=== PATIENT | female | born 1965 | race Caucasian/White ===

== ENCOUNTER → 2021-06-30 12:37 | Outpatient (CLI) | payer OTHER, SELFPAY ==
--- NOTE | ~2021-06-30 | MM_ITS ---
EXAMINATION: MM screening trish BI w kyle HISTORY: Screening TECHNIQUE: Craniocaudal and mediolateral oblique 3-D tomosynthesis images were obtained and synthetic 2-D images were generated. CAD analysis was submitted and interpreted. COMPARISON: Comparison to multiple prior studies sequentially, with oldest reviewed study dated 05/2013. BREAST PARENCHYMAL COMPOSITION: The breasts are heterogenously dense, which may obscure small masses FINDINGS: There is no evidence of suspicious mass, calcification, or architectural distortion to sugg est malignancy in either breast. There has been no suspicious interval change. IMPRESSION: 1. No mammographic evidence of malignancy. 2. Recommend routine screening mammography in one year. BI-RADS Category 1: Negative Reviewed, dictated and finalized at location A. NE REPAIR SUPERVISOR
== END ==
PROVIDERS: PCP Internal Medicine; Visit Provider Internal Medicine
DX: Z12.31 Encounter for screening mammogram for malignant neoplasm of breast (principal)
CPT/HCPCS: 77063; 77067

== ENCOUNTER 2024-06-14 15:06 | Outpatient (CLI) | payer OTHER, SELFPAY ==
--- NOTE | ~2024-06-14 | XR_ITS ---
EXAMINATION: XR abdomen/kub 1V DATE: 06/14/2024 15:25 INDICATION: Calculus of kidney. TECHNIQUE: A supine view of the abdomen on 2 radiographs was obtained. COMPARISON: Abdomen radiographs 12/14/2014 FINDINGS: There are no dilated loops of bowel. There is a moderate volume of stool in the colon. Ther e is a cluster of approximately 5 stones in left kidney measuring up to 3 mm. Surgical clips in the r ight upper quadrant are likely from cholecystectomy. There are phleboliths in the pelvis. There is a total right hip arthroplasty. IMPRESSION: 1. Left kidney stones. Reviewed, dictated and finalized at location A. RTISING ASSOCIATE IMPRESSION: 1. Left kidney stones.
--- OUTSIDE RECORDS SUMMARY | 2024-06-14 15:16 | XMS_ITS | Encounter Summary ---
Author Organization [facility] [place] Address [facility] [place] [address] Care Team Providers Care Community Development Officer Name Role Phone Ria Parr PA-C Primary Care Provider [phone]- [phone] Norma Orozco MD Primary Care Provider +1- [phone] Encounter Details Date Type Department Care Team (Late st Contact Info) Description 11/29/2019 Hospital Follow-up Call [facility] [place] [address] Shy Linton, RN Social History Tobacco Use Types Packs/Day Years Used Date Smoking Tobacco: Never Smokeless Tobacco: Never Alcohol Use Standard Drinks/Week Comments Yes 0 (1 standard drink = 0.6 oz pur e alcohol) 10 ralph/month PHQ-2 Answer Date Recorded PHQ-2 Score 0 04/02/2019 Comments No Sex and Gender Information Value Date Recorded Sex Assigned at Not on file Legal Sex Female 7:02 PM CDT Gender Identity Not on file Sexual Orientation Not on file COVID-19 Exposure Response Date Recorded In the last month, have you been in contact with someone who was confirmed or suspected to have Coronavirus / COVID-19? No / Unsure 11/25/2019 10:24 PM CDT documented as of this encounter Functional Status * RETIRED Are you deaf or do you have serious difficulty hearing Answer Date of Assessment Author Status No 11/26/2019 2:38 AM CDT Activ e * RETIRED Are you blind or do you have serious difficulty seeing, even when wearing glasses? Answer Date of Assessment Author Status No 11/26/2019 2:38 AM CDT Activ e * Do you have serious difficulty walking or climbing stairs? Answer Date of Assessment Author Status No 11/26/2019 2:38 AM MIKET Chante Jodran RN Active * Do you have difficulty dressing or bathing? Answer Date of Assessment Author Status No 11/26/2019 2:38 AM Chante Graham RN Active * Because of a physical, mental, or emotional condition, do you have difficulty doing errands alone such as visiting a doctor's office or shopping? Answer Date of Assessment Author Status No 11/26/2019 2:38 AM Chante Graham RN Active documented as of this encounter Mental Status * Because of a physical, mental, or emotional condition, do you have serious difficulty concentrating, remembering, or making decisions? Answer Entry Date Author Status No 11/26/2019 2:38 AM Chante Graham RN Active documented in this encounter Plan of Treatment Not on file documented as of this encounter Visit Diagnoses Not on filedocumented in this encounter Additional Health Concerns Infection Onset Date Last Indicated Resolved Time COVID-19 Rule Out 03/08/2020 03/08/2020 03/11/2020 7:01 PM SENIOR LANDSCAPE ARCHITECT COVID-19 Confirmed 03/08/2020 03/08/2020 12:36 AM SENIOR LANDSCAPE ARCHITECT COVID-19 Rule Out 11/07/2020 11/07/2020 11/09/2020 7:26 PM CDT Assessment Noted Time PHQ-9 Depression Total Score: 2 01/17/20 19 1:54 PM CDT documented as of this encounter Care Teams Community Development Officer Relationship Specialty Start Date End Date Ria Parr PA-C [address] [address] PCP - General PHYSICIAN STUDENT SUPPORT COUNSELOR 10/17/18 04/23/24 Norma Orozco MD [address] [place] [address] PCP - General INTERNAL MEDICINE 04/24/24 documented as of this encounter
--- OUTSIDE RECORDS SUMMARY | 2024-06-14 15:17 | XMS_ITS | Encounter Summary ---
Author Organization [facility] Address [facility] [place] [address] Care Team Providers Care Postal Service Sectional Center Manager Name Role Phone Ria Parr PA-C Primary Care Provider +1- [phone] Norma Orozco MD Primary Care Provider +1- [phone] Encounter Details Date Type Department Care Team (Late st Contact Info) Description 01/19/2018 Abstract [facility] Ria Parr PA-C [address] [address] Social History Tobacco Use Types Packs/Day Years Used Date Smoking Tobacco: Never Assessed Comments Unknown Sex and Gender Information Value Date Recorded Sex Assigned at Not on file Legal Sex Female 7:02 PM CDT Gender Identity Not on file Sexual Orientation Not on file documented as of this encounter Miscellaneous Notes * Letter - Ria Parr PA-C - 01/19/2018 12:00 AM CDT Jan 19, 2018 Julieth Abrams [address] [place] [address] Dear Julieth Abrams, Thank you for choosing [facility] for your health care needs. We appreciate the opportunity to help you maintain your well being. You recently had your mammogram done. Your results came back normal. Repeat mammogram in 1 year. Please remember to follow up as discussed at your last appointment. If you have any questions please feel free to call the office at [phone], Option #3 or Option #1 to make an appointment to discuss these results. Respectfully Yours, Electronically Signed by: Ria GARCIA Cc: Patients Medical Record L DESIGNER documented in this encounter Plan of Treatment Not on file documented as of this encounter Visit Diagnoses Not on filedocumented in this encounter Additional Health Concerns Infection Onset Date Last Indicated Resolved Time COVID-19 Rule Out 11/27/2019 11/27/2019 11/27/2019 12:32 PM CDT COVID-19 Rule Out 03/08/2020 03/08/2020 03/11/2020 7:01 PM EMAIL DESIGNER COVID-19 Confirmed 03/08/2020 03/08/2020 12:36 AM EMAIL DESIGNER COVID-19 Rule Out 11/07/2020 11/07/2020 11/09/2020 7:26 PM CDT documented as of this encounter Care Teams Postal Service Sectional Center Manager Relationship Specialty Start Date End Date Ria Parr PA-C [address] [address] PCP - General PHYSICIAN MICROFICHE CAMERA OPERATOR 10/17/18 04/23/24 Norma Orozco MD [address] [place] [address] PCP - General INTERNAL MEDICINE 04/24/24 documented as of this encounter
--- OUTSIDE RECORDS SUMMARY | 2024-06-14 15:17 | XMS_ITS | Clinical Summary ---
Author Organization [facility] Address [facility] [place] [address] Care Team Providers Care Metal Precision Machine Assembler Name Role Phone Norma Orozco MD Primary Care Provider +1- [phone] Allergies No known active allergies Medications azithromycin (ZITHROMAX) 250 MG tablet Take 2 tablets by mouth on day one then 1 daily for four days. 6 tablet 11/07/2020 Active naproxen (NAPROSYN) 500 MG tablet Take 1 tablet (500 mg total) by mouth 2 (two) times daily with meals. 12 tablet 04/24/2024 Active Active Problems Problem Noted Date Diagnosed Date Acute blood loss anemia 12/11/2019 Closed fracture of temporal bone ([facility]/ C) 12/11/2019 Fracture of phalanx of toe of right foot 020 Laceration of bladder 12/11/2019 SAH (subarachnoid hemorrhage) ([facility]) 12/11/2019 SDH (subdural hematoma) ([facility]) 2019 Scalp laceration 12/11/2019 Trauma 12/10/2019 Cholecystitis 11/26/2019 Pulmonary nodule 11/26/2019 Overview (11/26/2019): 5.3 cm nodule right lung base Irritable bowel syndrome (IBS) 08/16/2016 Nephrolithiasis 08/16/2016 Meniere's disease 08/16/2016 Female climacteric state 08/16/2016 Herpes labialis 08/16/2016 Thyroid cyst 07/25/2016 Overview (01/16/2019): small cyst seen on US 08/10 has FH of MEN2 Family history of type 2 MEN Encounters Date Type Department Care Team Description 04/24/2024 12:37 PM TEA BLENDER - 04/24/2024 3:26 PM TEA BLENDER Emergency [facility] Emergency Room [address] [place] [address] Frantz Bond MD Flank Pain Discharge Disposition: Home or Self Care (Routine Discharge) 04/24/2024 Travel from Last 3 Months Immunizations Name Administration Dates Next Due Fluzone 6 Months+ Quad (0.5 mL Prefilled Syringe ) 01/16/2019 Influenza Adult (Generic) 02/18/2018 Tdap (Boostrix) 12/09/2019 Tdap (Generic) 08/14/2016 Family History Medical History Relation Comments medullary thyroid cancer Cousin Coronary artery disease Father stent Hypertension Father Kidney Stones Father Stroke Father renal artery stenosis Father ? has sten t in kidney medullary thyroid cancer Other Osteoporosis Paternal Aunt medullary thyroid Cancer-MEN2A Paternal Aunt x 2 paternal aunt Heart Paternal Grandmother Osteoporosis Paternal Grandmother Relation Status Comments Cousin Father Other Alive Paternal Aunt Paternal Grandmother Social History Tobacco Use Types Packs/Day Years [...] on file Sexual Orientation Not on file Last Filed Vital Signs Vital Sign Reading Time Taken Comments Blood Pressure 124/74 04/24/2024 2:00 PM TEA BLENDER Pulse 71 04/24/2024 12:43 PM TEA BLENDER Temperature 36.1 C (96.9 F) 04/24/2024 12:45 PM TEA BLENDER Respiratory Rate 18 04/24/2024 12:43 PM TEA BLENDER Oxygen Saturation 100% 04/24/2024 2:00 PM TEA BLENDER Inhaled Oxygen Concentration - - Weight 64 kg (141 lb) 04/24/2024 12:43 PM TEA BLENDER Height 167.6 cm (5' 6 ) 04/24/2024 12:43 PM TEA BLENDER Body Mass Index 22.76 04/24/2024 12:43 PM TEA BLENDER Plan of Treatment Health Maintenance Due Date Last Done Comments Colorectal Cancer Screening Colonoscopy (10 Years) 1965 Hepatitis C 10/07/1985 Hepatitis B Vaccines (1 of 3 - 19+ 3-dose series) 10/07/1986 Zoster Vaccines (1 of 2) 10/07/2017 Annual Physical 01/17/2020 01/16/2019 Cervical Cancer Screening Pap with HPV Testing (Age 30 to 64) Every 5 Years 08/14/2021 08/14/2016 COVID-19 Vaccine ( season) 2023 07/10/2020 Influenza Adult (#1) 2024 01/24/2023, 01/24/2022, 03/25/2021, Additional history exists Mammogram Screening 06/21/2025 06/21/2023, 03/08/2023, 02/09/2023 Cervical Cancer Screening Pap Smear (Age 30 to 64) Every 3 Years 05/31/2028 05/31/2023 Cervical Cancer Screening with HPV 05/31/2028 DTaP, Tdap and Td Vaccines (3 - Td or Tdap) 12/08/2029 12/09/2019, 08/14/2016 Meningococcal B Vaccine Aged Out No l onger eligible based on patient's age to complete this topic Meningococcal Vaccine Aged Out No kateryna jeronimo eligible based on patient's age to complete this topic Pneumococcal Vaccine: Pediatrics (0 to 5 Years) and At-Risk Patients (6 to 64 Years) Aged Out No longer eligible based on patient's age to complete this topic RSV Immunizations Under 20 Months Aged Out No longer eligible based on patient's age to complete this topic Procedures Procedure Name Priority Date/Time Associated Diagnosis Comments CT ABD+PEL KIDNEY STONE STAT 04/24/2024 2:08 PM TEA BLENDER COMPREHENSIVE METABOLIC PANEL STAT 04/24/2024 1:49 PM TEA BLENDER CBC W/DIFF AUTOMATED STAT 04/24/2024 1:49 PM TEA BLENDER URINALYSIS, AUTO, COMPLETE STAT 04/24/2024 12:53 PM TEA BLENDER HPV MRNA E6/E7 Routine 08/14/2016 5:21 PM CDT from Last 3 Months or Most Recently Relevant to Health Maintenance Results * CT ABD+PEL KIDNEY STONE (04/24/2024 2:08 PM TEA BLENDER) Anatomical Region Laterality Modality Abdomen Computed Tomogra phy 04/24/2024 2:30 PM TEA BLENDER Impressions 04/24/2024 2:36 PM TEA BLENDER IMPRESSION: 1. There is a 8 mm nonobstructing left renal stone, unchanged. No ureteric or bladder stones are identified. There is no hydronephrosis. 2. No CT evidence of bowel obstruction. 3. Moderate fecal burden within the colon, which was seen with constipation. 4. Status post cholecystectomy. Referred By: Interpreted By: Nino Mcmanus MD, 04/24/2024 2:30 PM Narrative 04/24/2024 2:36 PM TEA BLENDER [facility] [address] [facility] [address] [place] [id number] PROCEDURE: CT ABD+PEL KIDNEY STONE HISTORY: Left flank pain. TECHNIQUE: Helical CT of the abdomen and pelvis was performed without intravenous contrast. A dose lowering technique was used for this procedure, which may include, but is not limited to, dose reduction technique, automated exposure control, the use of iterative reconstruction, and ALARA (As Low As Reasonably Achievable) / Image Gently techniques. COMPARISON: CT abdomen pelvis with contrast, 11/26/2019. FINDINGS CT ABDOMEN/PELVIS: Lower thorax: The lung bases are clear. The heart size is normal. Liver: The liver is normal in size. No intrahepatic mass is seen on this non- contrast exam. There are multiple hepatic cysts measuring up to 2.3 cm. Biliary tree: The patient is post cholecystectomy. There is no biliary ductal dilatation. Spleen: unremarkable Pancreas: The pancreas is normal in size. There are no pancreatic calcifications. The pancreatic duct is not dilated. Adrenal glands: The adrenal glands are normal in size and shape. Kidneys: There is no hydronephrosis. There is a stable nonobstructing left renal stone measuring up to 8 mm. No ureteric stones identified. There is no hydronephrosis. Lymph nodes: Abdomen: There is no abdominal adenopathy. Pelvis: There is no pelvic adenopathy. Vasculature: There is no abdominal aortic aneurysm. Atherosclerotic calcification is seen. Peritoneum/mesentery/omentum: There is no free fluid or free air. GI tract: There is no bowel obstruction. There is no abnormal bowel wall thickening to suggest acute inflammation. Moderate fecal burden within the colon. Pelvic urogenital structures:The bladder is grossly unremarkable. The uterus is present. There is no adnexal mass. Body wall: There are degenerative changes in the spine. Limitations: Evaluation of the solid parenchymal organs and vasculature is limited due to lack of intravenous contrast. Morales: (S/I) = series number / image number Procedure Note Nino Mcmanus MD - 04/24/2024 [facility] [address] [facility] [place] [address] PROCEDURE: CT ABD+PEL KIDNEY STONE HISTORY: Left flank pain. TECHNIQUE: Helical CT of the abdomen and pelvis was performed withoutintravenous contrast. A dose lowering technique was used for this procedure, which may include,but is not limited to, dose reduction technique, automated exposurecontrol, the use of iterative reconstruction, and ALARA (As Low AsReasonably Achievable) / Image Gently techniques. COMPARISON: CT abdomen pelvis with contrast, 11/26/2019. FINDINGS CT ABDOMEN/PELVIS: Lower thorax: The lung bases are clear. The heart size is normal. Liver: The liver is normal in size. No intrahepatic mass is seen on thisnon- contrast exam. There are multiple hepatic cysts measuring up to 2.3cm. Biliary tree: The patient is post cholecystectomy. There is no biliaryductal dilatation. Spleen: unremarkable Pancreas: The pancreas is normal in size. There are no pancreaticcalcifications. The pancreatic duct is not dilated. Adrenal glands: The adrenal glands are normal in size and shape. Kidneys: There is no hydronephrosis. There is a stable nonobstructingleft renal stone measuring up to 8 mm. No ureteric stones identified.There is no hydronephrosis. Lymph nodes: Abdomen: There is no abdominal adenopathy. Pelvis: There is no pelvic adenopathy. Vasculature: There is no abdominal aortic aneurysm. Atheroscleroticcalcification is seen. Peritoneum/mesentery/omentum: There is no free fluid or free air. GI tract: There is no bowel obstruction. There is no abnormal bowel wallthickening to suggest acute inflammation. Moderate fecal burden withinthe colon. Pelvic urogenital structures:The bladder is grossly unremarkable. Theuterus is present. There is no adnexal mass. Body wall: There are degenerative changes in the spine. Limitations: Evaluation of the solid parenchymal organs and vasculature islimited due to lack of intravenous contrast. Morales: (S/I) = series number / image number IMPRESSION: 1. There is a 8 mm nonobstructing left renal stone, unchanged. Noureteric or bladder stones are identified. There is no hydronephrosis. 2. No CT evidence of bowel obstruction. 3. Moderate fecal burden within the colon, which was seen withconstipation. 4. Status post cholecystectomy. Referred By: Interpreted By: Nino Mcmanus MD, 04/24/2024 2:30 PM Frantz Bond MD CT Final Result * (ABNORMAL) COMPREHENSIVE METABOLIC PANEL (04/24/2024 1:49 PM TEA BLENDER) GLUCOSE 93 70 - 99 MG/DL 04/24/2024 2:13 PM [facility] BUN 18 7 - 18 MG/DL 04/24/2024 2:13 PM [facility] CREATININE S/P/B 0.91 0.55 - 1.02 MG/DL 04/24/2024 2:13 PM [facility] SODIUM S/P/B 141 136 - 145 MMOL/L 04/24/2024 2:13 PM [facility] POTASSIUM S/P/B 4.0 3.5 - 5.1 MMOL/L 04/24/2024 2:13 PM [facility] CHLORIDE S/P/B 104 100 - 108 MMOL/L 04/24/2024 2:13 PM [facility] CO2 28.0 21 - 32 MMOL/L 04/24/2024 2:13 PM [facility] CALCIUM S/P/B 9.8 8.5 - 10.1 MG/DL 04/24/2024 2:13 PM [facility] BILIRUBIN TOTAL S/P/B 1.3(H) 0.2 - 1.2 MG/DL 04/24/2024 2:13 PM [facility] TOTAL PROTEIN S/P/B 7.3 6.4 - 8.2 G/DL 04/24/2024 2:13 PM [facility] ALBUMIN S/P/B 4.4 3.4 - 5.0 G/DL 04/24/2024 2:13 PM [facility] AST 19 15 - 37 U/L 04/24/2024 2:13 PM [facility] ALT 27 14 - 55 U/L 04/24/2024 2:13 PM [facility] ALKALINE PHOSPHATASE S/P/B 41(L) 50 - 136 U/L 04/24/2024 2:13 PM [facility] ANION GAP 9.0 5 - 15 MMOL/L 04/24/2024 2:13 PM [facility] BUN CREATININE RATIO 19.8 6 - 26 04/24/2024 2:13 PM [facility] A/G RATIO 1.5 1.0 - 2.0 RATIO 04/24/2024 2:13 PM [facility] GFR ESTIMATE 74(L) >90 ML/MIN/1.7 3 M2 04/24/2024 2:13 PM [facility] Comment: NOTE: eGFR is not calculated for patients <18 years of age. This is an estimated GFR calculation using the new CKD EPI creatinine equation without race and so does not require a correction factor for race. This estimated GFR should not be used for calculating drug doses. 04/24/2024 1:49 PM TEA BLENDER Frantz Bond MD LABORATORY Final Result [facility] [address] [place] [address], * (ABNORMAL) CBC W/DIFF AUTOMATED (04/24/2024 1:49 PM TEA BLENDER) WBC 7.14 4.4 - 11.0 x10'3/uL 04/24/2024 2:01 PM [facility] RBC 4.27(L) 4.50 - 5.10 x10'6/uL 04/24/2024 2:01 PM [facility] HGB 13.2 12.3 - 15.3 G/DL 04/24/2024 2:01 PM [facility] HCT 40.4 35.9 - 44.6 % 04/24/2024 2:01 PM [facility] MCV 94.6 80.0 - 96.0 FL 04/24/2024 2:01 PM [facility] MCH 30.9 25.3 - 30.9 PG 04/24/2024 2:01 PM [facility] MCHC 32.7 31.0 - 34.1 G/DL 04/24/2024 2:01 PM [facility] RDW 13.7 12.4 - 15.1 % 04/24/2024 2:01 PM [facility] PLT 297 151 - 353 x10'3/uL 04/24/2024 2:01 PM [facility] MPV 10.3 9.6 - 12.0 FL 04/24/2024 2:01 PM [facility] RBC MORPHOLOGY NORMAL 04/24/2024 2:01 PM [facility] PLT MORPH. NORMAL 04/24/2024 2:01 PM [facility] WBC MORPHOLOGY NORMAL 04/24/2024 2:01 PM [facility] LYMPHOCYTES % 29.3 15.8 - 45.0 % 04/24/2024 2:01 PM [facility] NEUTROPHILS % 63.3 42.1 - 71.9 % 04/24/2024 2:01 PM [facility] MONOCYTES % 6.3 5.7 - 12.5 % 04/24/2024 2:01 PM [facility] EOSINOPHILS 0.4 0.0 - 5.6 % 04/24/2024 2:01 PM [facility] BASOPHILS 0.6 0.0 - 1.3 % 04/24/2024 2:01 PM [facility] ABS. NEUTROPHILS 4.52 1.40 - 6.00 x10'3/uL 04/24/2024 2:01 PM [facility] IMMATURE GRANS % 0.1 0.0 - 0.5 % 04/24/2024 2:01 PM [facility] ABS. LYMPHOCYTES 2.09 0.80 - 4.70 x10'3/uL 04/24/2024 2:01 PM [facility] 04/24/2024 1:49 PM TEA BLENDER us Frantz Bond MD LABORATORY Final Result [facility] [address] [place] [address], [place] [phone] * (ABNORMAL) Urinalysis, Auto, Complete (04/24/2024 12:53 PM TEA BLENDER) COLOR (U) YELLOW 04/24/2024 2:06 PM [facility] TRANSPARENCY HAZY 04/24/2024 2:06 PM [facility] SPECIFIC GRAVITY (U) >1.030(H) 1.000 - 1.030 04/24/2024 2:06 PM [facility] U PH 6.0 5.0 - 9.0 04/24/2024 2:06 PM [facility] LEUKOCYTES (U) TRACE(A) NEGATIVE 04/24/2024 2:06 PM [facility] NITRITES NEGATIVE NEGATIVE 04/24/2024 2:06 PM [facility] PROTEIN RANDOM (U) NEGATIVE NEGATIVE 04/24/2024 2:06 PM [facility] GLUCOSE (U) NEGATIVE NEGATIVE 04/24/2024 2:06 PM [facility] KETONES MG/DL (U) 1+(A) NEGATIVE 04/24/2024 2:06 PM [facility] BILIRUBIN (U) NEGATIVE NEGATIVE 04/24/2024 2:06 PM [facility] BLOOD (U) TRACE(A) NEGATIVE 04/24/2024 2:06 PM [facility] WBC/HPF 5-10 0 - 5 /HPF 04/24/2024 2:06 PM [facility] RBC/HPF 0-5 0 - 5 /HPF 04/24/2024 2:06 PM [facility] EPI/HPF MODERATE /HPF 04/24/2024 2:06 PM [facility] URINE SPECIMEN OBTAINED BY CLEAN CATCH PROCEDURE / Unknown 04/24/2024 12:53 PM TEA BLENDER Frantz Bond MD URINE ORDERABLES Final Result [facility] [address] [place] [address], [place] [phone] * HPV MRNA E6/E7 (08/14/2016 5:21 PM CDT) HPV MRNA E6/E7 SEE NOTE [facility] OUP TO EPIC CONVERSION Comment: Not Detected Reference range: NOT DETECTED This test was performed using the APTIMA(R) HPV Assay ([employer] This assay detects E6/E7 viral messenger RNA (mRNA) from 14 high-risk HPV types (16,18,31,33,35,39,45,51, 52,56,58,59,66,68). For additional information please refer to: http://education.OrderWithMe/faq/XXC929k5 (This link is being provided for informational/ educational purposes only.) Test Performed by [facility], [address] [place] [id number] Keith Rico M.D., Ph.D., Director of Laboratories , [facility] [id number] 08/14/2016 5:21 PM CDT 08/14/2016 5:21 PM CDT Narrative [facility] TO EPIC CONVERSION - 08/14/2016 5:21 PM CDT [AUTO]: This test was reviewed. Ria Parr PA-C PATHOLOGY/CYTOLOGY ORDERAB LES Final Result [facility] TO EPIC CONVERSION from Last 3 Months or Most Recently Relevant to Health Maintenance Insurance [facility] Advance Directives * Full Code (Latest Code Status on File) Date Activated Date Inactivated Comments 11/27/2019 3:45 PM 11/28/2019 1:24 PM * Full Code Date Activated Date Inactivated Comments 11/26/2019 2:17 AM 11/27/2019 3:45 PM Care Teams Metal Precision Machine Assembler Relationship Specialty Start Date End Date Norma Orozco MD [address] [place] [id number] PCP - General INTERNAL MEDICINE 04/24/24
--- OUTSIDE RECORDS SUMMARY | 2024-06-14 15:17 | XMS_ITS | Encounter Summary ---
Author Organization [facility] Address [facility] [place] [address] Care Team Providers Care Edge Grinder Machine Name Role Phone Ria Parr PA-C Primary Care Provider [phone]- [phone] Norma Orozco MD Primary Care Provider [phone]- [phone] Encounter Details Date Type Department Care Team (Late st Contact Info) Description 05/29/2015 Abstract [facility] CONVERSION [address] [place] [address] , Generic Conversion, Social History Tobacco Use Types Packs/Day Years Used Date Smoking Tobacco: Never Assessed Comments Unknown Sex and Gender Information Value Date Recorded Sex Assigned at Not on file Legal Sex Female 7:02 PM CDT Gender Identity Not on file Sexual Orientation Not on file documented as of this encounter Plan of Treatment Not on file documented as of this encounter Visit Diagnoses Not on filedocumented in this encounter Additional Health Concerns Infection Onset Date Last Indicated Resolved Time COVID-19 Rule Out 11/27/2019 11/27/2019 11/27/2019 12:32 PM CDT COVID-19 Rule Out 03/08/2020 03/08/2020 03/11/2020 7:01 PM [employer]HER COVID-19 Confirmed 03/08/2020 03/08/2020 12:36 AM C[employer]HER COVID-19 Rule Out 11/07/2020 11/07/2020 11/09/2020 7:26 PM CDT documented as of this encounter Care Teams Edge Grinder Machine Relationship Specialty Start Date End Date Ria Parr PA-C [address] [facility] [address] [place] [address] PCP - General PHYSICIAN PLASTIC SURGERY TECHNICIAN 10/17/18 04/23/24 Norma Orozco MD [address] [place] [id number] PCP - General INTERNAL MEDICINE 04/24/24 documented as of this encounter
--- OUTSIDE RECORDS SUMMARY | 2024-06-14 15:17 | XMS_ITS | Patient Health Summary ---
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 Colorless 12/10/2019 7:27 AM [facility] Clarity UA Slt Cloudy Clear, Slt Cloudy 12/10/2019 7:27 AM [facility] Specific [place] UA 1.017 1.005 - 1.030 12/10/2019 7:27 AM [facility] pH UA 7.0 5.0 - 8.0 pH 12/10/2019 7:27 AM [facility] Protein UA Negative Negative mg/dL 12/10/2019 7:27 AM [facility] Glucose UA 1+(A) Negative mg/dL 12/10/2019 7:27 AM [facility] Ketone UA Negative Negative mg/dL 12/10/2019 7:27 AM [facility] Bilirubin UA Negative Negative mg/dL 12/10/2019 7:27 AM [facility] Blood UA 3+(A) Negative 12/10/2019 7:27 AM [facility] Nitrite UA Negative Negative 12/10/2019 7:27 AM [facility] Leukocyte Esterase 1+(A) Negative 12/10/2019 7:27 AM [facility] Urobilinogen UA Negative Negative mg/dL 12/10/2019 7:27 AM [facility] RBC UA >100(A) None Seen, 0-2, 3-5 /HPF 12/10/2019 7:27 AM [facility] WBC UA 11-20(A) None Seen, 0-5 /HPF 12/10/2019 7:27 AM [facility] Bacteria UA Trace None, Trace /HPF 12/10/2019 7:27 AM [facility] Squamous Epithelial Cells UA None Seen None Seen, 0-2 /HPF 12/10/2019 7:27 AM [facility] Mucus UA 1+ None, 1+ /LPF 12/10/2019 7:27 AM [facility] Transitional Epithelial Cells UA 0-2 None Seen, 0-2 /HPF 12/10/2019 7:27 AM [facility] Urine URINE SPECIMEN OBTAINED BY SINGLE CATHETERIZATION OF URINARY BLADDER / Unknown Collection / Unknown 12/10/2019 6:55 AM CDT 12/10/2019 7:00 AM CDT Narrative [facility] - 12/10/2019 7:27 AM CDT Maribel Santa DO LAB - URINALYSI S ORDERABLES [address] [address], [facility] [phone] * (ABNORMAL) DRUG SCREEN TOX URINE PANEL (12/10/2019 6:55 AM CDT) Pathologist [facility] Amphetamines Screen Urine Negative Negative : < 1000 ng/mL 12/10/2019 7:19 AM [facility] Barbiturates Screen Urine Negative Negative : < 200 ng/mL 12/10/2019 7:19 AM [facility] Benzodiazepine Screen Urine Negative Negative : < 200 ng/mL 12/10/2019 7:19 AM [facility] Opiates Urine Negative Negative : < 300 ng/mL 12/10/2019 7:19 AM [facility] Cocaine Metabolites Urine Negative Negative : < 300 ng/mL 12/10/2019 7:19 AM [facility] Phencyclidine Screen Urine Negative Negative : < 25 ng/ml 12/10/2019 7:19 AM [facility] Cannabinoids Screen Urine Negative Negative : <50 ng/mL 12/10/2019 7:19 AM [facility] Methadone Screen Urine Negative Negative : < 300 ng/mL 12/10/2019 7:19 AM [facility] Fentanyl Screen Urine Positive(A) Negative : <1.0 ng/mL 12/10/2019 7:19 AM [facility] Comment:Positive urine fenta nyl screening results should be confirmed by another generally accepted non-immunological method such as gas chromatography or mass spectrometry. Urine URINE / Unknown Collection / Unknown 12/10/2019 6:55 AM CDT 12/10/2019 7:00 AM CD Narrative [facility] - 12/10/2019 7:19 AM CDT The Urine Toxicology Screening Panel does not screen for Propoxyphene, Meprobamate, Carisoprodol, Trazodone, [id number] medications and/or volatiles (Acetone, Isopropanol, Methanol or Ethylene Glycol). Ethanol, Salicylate, Acetaminophen, Tricyclic Antidepressants and several therapeutic drugs may be individually assayed in serum or plasma specimen. Toxicology testing by the [facility] is an aid to medical diagnosis and treatment of patients. No documented chain of custody was maintained. Results are intended to be used for clinical purposes only. Maribel Santa DO LAB - URINE RICHAR RICKIE ORDERABLES [address] [address], [facility] [phone] * ETT LINE PERFORMABLE (12/10/2019 3:39 AM CDT) Narrative Mark Balderrama MD - 12/10/2019 3:39 AM CDMark Amato MD 12/10/2019 3:40 AM Endotracheal Tube Placement: Patient Location: OR. Intubation Event Date/Time: 12/10/2019 3:17 AM Procedure: intubation (36032). Procedure Section: Sedation: IV sedation. Indications for Airway Management: airway protection Induction: rapid sequence Mask Ventilation: not attempted. Blade Type: Video Blade Size: 3 Laryngoscopy View: grade 1 (full cords) Intubation Adjuncts: stylet and cricoid pressure Tube: endotracheal tube Placement: oral Tube type: cuff - inflated Tube Size (MM): 7 Measured From: teeth Cuff Inflated With: air Number of Attempts: 1. Placement Verified By: direct visualization, bilateral breath sounds, chest auscultation and CO2 monitor CXR Findings: ETT in proper place. Tube secured with: adhesive tape. Difficult Airway? No. Procedure Start Time: 12/10/2019 3:17 AM. Staff Section Provider #1: Mark Balderrama MD, Performed the procedure. Tiffany Doherty MD GENERAL ANESTHESIA O RDERABLES * CT CHEST ABDOMEN PELVIS W CONT - Abdomen-pelvis trauma, blunt or penetrating (12/10/2019 2:06 AM CDT) Anatomical Region Laterality Modality Chest, Abdomen, Pelvis Computed Tomography 12/10/2019 2:29 AM CDT Impressions 12/10/2019 10:06 AM CDT IMPRESSION: 1. Discrete defect in the cranial margin of the urinary bladder, with urinary bladder wall thickening and surrounding haziness and fluid. There is also small moderate free intraperitoneal fluid. The findings are consistent with full thickness disruption of the urinary bladder. This is a discrepant finding from the preliminary reading of the CT, which is already known to the surgical team based on operative findings. 2. A focal nodule versus focal nodular-appearing parenchyma is present in each breast. Mammographic correlation advised. 3. Rotational anomaly of the left kidney, with renal hilum facing laterally. An 8 mm left renal stone is present. Dictated by New Garland MD (interventional radiology technologist). I, Dr. ECTOR STEVENSON have personally reviewed and interpreted this examination/study. This report was electronically signed by ECTOR STEVENSON on 12/10/2019 10:06 AM . Narrative 12/10/2019 10:06 AM CDT EXAMINATION: Computed tomography (CT) of the chest, abdomen, and pelvis with contrast HISTORY: Trauma, status postcholecystectomy 2 weeks ago TECHNIQUE: CT of the chest, abdomen, and pelvis was performed after the uneventful administration of 100 mL of Isovue 370 intravenous contrast according to standard protocol. FINDINGS: No prior study is available for comparison at the time of this dictation. Chest: There is a left-sided three-vessel aortic arch. The aorta and main pulmonary artery are normal in course and caliber. There is atelectasis in the dependent portions of the lungs. Otherwise no focal consolidation is seen. No pleural effusion or focal pleural thickening is identified. There is no evidence of pneumothorax. No suspicious pulmonary nodule is identified. The trachea is patent and midline. The heart size is normal. No pericardial effusion is present. No mediastinal, hilar, supraclavicular, or axillary lymphadenopathy is seen. The thyroid gland enhances homogenously. There is a 10 mm nodule versus nodular parenchyma in the superior medial right breast. There is a 15 mm nodule versus nodular parenchyma in the superolateral left breast. Abdomen/pelvis: There is a moderate amount of free fluid throughout the abdomen and pelvis. The free fluid measures simple fluid density and there is no evidence of layering hyperdensity or sentinel clot sign. Multiple cysts are present in the liver measuring up to 1.8 cm. The gallbladder is surgically absent. The intrahepatic and extrahepatic bile ducts are nondilated. The spleen enhances homogenously without focal lesion. The pancreas and adrenal glands are normal. Abnormal left kidney morphology which is rotated upon its axis with the renal pelvis pointed laterally towards the abdominal wall. There is no evidence of traumatic kidney injury. There is a nonobstructing calculus in the left kidney renal pelvis which measures 8 mm. The esophagus and stomach appear normal. The small bowel and colon are normal in caliber without evidence of wall thickening or obstruction. The appendix is not seen. No free air is identified within the abdomen. There is no abdominal lymphadenopathy. There is a small fat-containing periumbilical hernia. There is a 7 mm defect along the cranial margin of the urinary bladder. There is mild diffuse urinary bladder wall thickening along with surrounding haziness and fluid. The uterus appears normal. There is no pelvic lymphadenopathy. Bone windows demonstrate no suspicious lytic or blastic lesions. The visible osseous structures are intact. Procedure Note Ector Stevenson MD - 12/10/2019 EXAMINATION: Computed tomography (CT) of the chest, abdomen, and pelvis with contrast HISTORY: Trauma, status postcholecystectomy 2 weeks ago TECHNIQUE: CT of the chest, abdomen, and pelvis was performed after the uneventful administration of 100 mL of Isovue 370 intravenous contrast according to standard protocol. FINDINGS: No prior study is available for comparison at the time of this dictation. Chest: There is a left-sided three-vessel aortic arch. The aorta and main pulmonary artery are normal in course and caliber. There is atelectasis in the dependent portions of the lungs. Otherwiseno focal consolidation is seen. No pleural effusion or focal pleural thickening is identified. There is no evidence of pneumothorax. No suspicious pulmonary nodule is identified. The trachea is patent and midline. The heart size is normal. No pericardial effusion is present. No mediastinal, hilar, supraclavicular, or axillary lymphadenopathy isseen. The thyroid gland enhances homogenously. There is a 10 mm nodule versus nodular parenchyma in the superior medial right breast. There is a 15 mm nodule versus nodular parenchyma in the superolateral left breast. Abdomen/pelvis: There is a moderate amount of free fluid throughout the abdomen and pelvis. The free fluid measures simple fluid density and there is no evidence of layering hyperdensity or sentinel clot sign. Multiple cysts are present in the liver measuring up to 1.8 cm. The gallbladder is surgically absent. The intrahepatic and extrahepatic bile ducts are nondilated. The spleen enhances homogenously without focal lesion. The pancreas and adrenal glands are normal. Abnormal left kidney morphology which is rotated upon its axis with the renal pelvis pointed laterally towards the abdominal wall. There is no evidence of traumatic kidney injury. There is a nonobstructing calculusin the left kidney renal pelvis which measures 8 mm. The esophagus and stomach appear normal. The small bowel and colon are normal in caliber without evidence of wall thickening or obstruction.The appendix is not seen. No free air is identified within the abdomen.There is no abdominal lymphadenopathy. There is a small fat-containing periumbilical hernia. There is a 7 mm defect along the cranial margin of the urinary bladder. There is mild diffuse urinary bladder wall thickening along with surrounding haziness and fluid. The uterus appears normal. There is no pelvic lymphadenopathy. Bone windows demonstrate no suspicious lytic or blastic lesions. The visible osseous structures are intact. IMPRESSION: 1. Discrete defect in the cranial margin of the urinary bladder, with urinary bladder wall thickening and surrounding haziness and fluid.There is also small moderate free intraperitoneal fluid. The findings are consistent with full thickness disruption of the urinary bladder. Thisis a discrepant finding from the preliminary reading of the CT, which is already known to the surgical team based on operative findings. 2. A focal nodule versus focal nodular-appearing parenchyma is presentin each breast. Mammographic correlation advised. 3. Rotational anomaly of the left kidney, with renal hilum facing laterally. An 8 mm left renal stone is present. Dictated by [place] Garland MD (interventional radiology technologist). I, Dr. ECTOR STEVENSON have personally reviewed and interpreted this examination/study. This report was electronically signed by ECTOR STEVENSON on 12/10/2019 10:06 AM . Maribel Vicente Nelyyolandatheodore DO CT ORDERABLES * CT LUMBAR SPINE WO CONTRAST - T/L-spine trauma, Spine fracture (12/10/2019 2:06 AM CDT) Anatomical Region Laterality Modality Spine Computed Tomogra phy 12/10/2019 2:13 AM CDT Impressions 12/10/2019 3:37 PM CDT IMPRESSION: 1.Bifrontal hemorrhagic contusions and small volume subarachnoid blood products. 2.Right tentorial subdural hematoma. 3.Right temporal bone fracture appears to spare the otic capsule. Fluid is present in the right mastoid air cells and middle ear cavity. 4.Posterior scalp laceration with small subgaleal hematoma and gas. 5.No evidence of acute fracture in the cervical, thoracic, or lumbar spine. 6.Moderate central canal stenosis at C7 due to focal calcification of the posterior longitudinal ligament. Report dictated by Caden Cerna M.D. Preliminary results were discussed with Dr. Blair by Dr. Cerna on 12/10/2019 2:29 AM. This report was approved by Caden Cerna on 12/10/2019 3:37 PM . I, Dr. CHARMAINE RAZA have personally reviewed and interpreted this examination/study. This report was electronically signed by CHARMAINE RAZA on 12/10/2019 3:37 PM . Narrative 12/10/2019 3:[address] HEAD WO CONTRAST, CT LUMBAR SPINE WO CONTRAST, CT THORACIC SPINE WO CONTRAST, CT CERVICAL SPINE WO CONTRAST DATE: 12/10/2019 2:07 AM EXAMINATION: 1.Computed tomography (CT) of the head without contrast 2.CT of the cervical spine without contrast 3.CT of the thoracic spine without contrast 4.CT of the lumbar spine without contrast HISTORY: Trauma TECHNIQUE: CT of the head, and cervical spine was performed without contrast according to standard protocol. Reformatted axial, sagittal, and coronal images of the thoracic and lumbar spine were obtained by the technologist from a concurrently performed body CT and sent to the workstation for review. COMPARISON: No prior study is available for comparison at the time of this dictation. FINDINGS: Head: Bifrontal hemorrhagic contusions are present with the largest discrete hematoma measuring 8 x 7 x 7 mm (series 12, image 26). Small volume subarachnoid blood products are seen along the anteriormost frontal sulci. A 2.5 mm right tentorial subdural hematomas present. There is suggestion of small petechial hemorrhages in bilateral temporal lobes. Gas is present adjacent along the right transverse sinus region with associated fracture of the right temporal bone which extends from the right mandibular fossa through the squamous and superior mastoid portions to the lambdoid suture. The otic capsule appears intact. There is partial opacification of multiple right mastoid air cells and the middle ear cavity. Mild opacification of the left mastoid air cells near the mastoid tip. The ventricles are of normal size, shape, and morphology. The basal cisterns are patent. No significant midline shift is seen. The chnio-white matter differentiation is normal. The visualized portions of the orbits, orbital contents, and paranasal sinuses appear normal. A posterior scalp laceration with small subgaleal hematoma and gas is present posteriorly. Cervical spine: There is straightening of the normal cervical lordosis. Vertebral bodies are normal in height without evidence of acute fracture. Other than middle atlantoaxial joint osteoarthritis, the craniocervical junction appears normal. There is mild degenerative disc disease. There is moderate central canal stenosis at C7 due to thickened calcified posterior longitudinal ligament. There are varying degrees of mild facet osteoarthritis. There are varying degrees of mild uncovertebral joint osteoarthritis with the same degree of neural foraminal stenosis at these levels. No soft tissue abnormality is identified. Thoracic spine: The alignment is normal. Vertebral bodies are normal in height without evidence of acute fracture. Disc osteophyte complex/ossification of the PLL at the level of T11-T12. The remaining intervertebral discs appear normal. No central canal stenosis is seen. The facets appear normal. No neural foraminal stenosis is seen. There is subsegmental atelectasis in the dependent portions of the lung bases. Lumbar spine: The alignment is normal. Vertebral bodies are normal in height without evidence of acute fracture. Mild disc bulge at multiple levels. No significant central canal stenosis is seen. There are varying degrees of mild facet osteoarthritis. No significant neural foraminal stenosis is seen. 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 Procedure Note Charmaine Raza MD - 12/10/2019 CT HEAD WO CONTRAST, CT LUMBAR SPINE WO CONTRAST, CT THORACIC SPINE WO CONTRAST, CT CERVICAL SPINE WO CONTRAST DATE: 12/10/2019 2:07 AM EXAMINATION: 1.Computed tomography (CT) of the head without contrast 2.CT of the cervical spine without contrast 3.CT of the thoracic spine without contrast 4.CT of the lumbar spine without contrast HISTORY: Trauma TECHNIQUE: CT of the head, and cervical spine was performed without contrast according to standard protocol. Reformatted axial, sagittal,and coronal images of the thoracic and lumbar spine were obtained by the technologist from a concurrently performed body CT and sent to the workstation for review. COMPARISON: No prior study is available for comparison at the time ofthis dictation. FINDINGS: Head: Bifrontal hemorrhagic contusions are present with the largest discrete hematoma measuring 8 x 7 x 7 mm (series 12, image 26). Small volume subarachnoid blood products are seen along the anteriormost frontalsulci. A 2.5 mm right tentorial subdural hematomas present. There is suggestion of small petechial hemorrhages in bilateral temporal lobes. Gas ispresent adjacent along the right transverse sinus region with associatedfracture of the right temporal bone which extends from the right mandibular fossa through the squamous and superior mastoid portions to the lambdoidsuture. The otic capsule appears intact. There is partial opacification of multiple right mastoid air cells and the middle ear cavity. Mild opacification of the left mastoid air cells near the mastoid tip. The ventricles are of normal size, shape, and morphology. The basal cisterns are patent. No significant midline shift is seen. The chino-white matter differentiation is normal. The visualized portions of the orbits,orbital contents, and paranasal sinuses appear normal. A posterior scalp laceration with small subgaleal hematoma and gas is present posteriorly. Cervical spine: There is straightening of the normal cervical lordosis. Vertebral bodies are normal in height without evidence of acute fracture. Other thanmiddle atlantoaxial joint osteoarthritis, the craniocervical junction appears normal. There is mild degenerative disc disease. There is moderatecentral canal stenosis at C7 due to thickened calcified posterior longitudinal ligament. There are varying degrees of mild facet osteoarthritis. There are varying degrees of mild uncovertebral joint osteoarthritis with the same degree of neural foraminal stenosis at these levels. No soft tissue abnormality is identified. Thoracic spine: The alignment is normal. Vertebral bodies are normal in height without evidence of acute fracture. Disc osteophyte complex/ossification of the PLL at the level of T11-T12. The remaining intervertebral discs appear normal. No central canal stenosis is seen. The facets appear normal. No neural foraminal stenosis is seen. There is subsegmental atelectasis in the dependent portions of the lung bases. Lumbar spine: The alignment is normal. Vertebral bodies are normal in height without evidence of acute fracture. Mild disc bulge at multiple levels. No significant central canal stenosis is seen. There are varying degrees of mild facet osteoarthritis. No significant neural foraminal stenosis is seen. 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 IMPRESSION: 1.Bifrontal hemorrhagic contusions and small volume subarachnoid blood products. 2.Right tentorial subdural hematoma. 3.Right temporal bone fracture appears to spare the otic capsule. Fluidis present in the right mastoid air cells and middle ear cavity. 4.Posterior scalp laceration with small subgaleal hematoma and gas. 5.No evidence of acute fracture in the cervical, thoracic, or lumbarspine. 6.Moderate central canal stenosis at C7 due to focal calcification ofthe posterior longitudinal ligament. Report dictated by Caden Cerna M.D. Preliminary results were discussed with Dr. Blair by Dr. Cerna on 12/10/2019 2:29 AM. This report was approved by Caden Cerna on 12/10/2019 3:37 PM. I, Dr. CHARMAINE RAZA have personally reviewed and interpreted this examination/study. This report was electronically signed by CHARMAINE RAZA on12/10/2019 3:37 PM . Maribel Santa DO CT ORDERABLES * CT THORACIC SPINE WO CONTRAST - T/L-spine trauma, spine fracture (12/10/2019 2:06 AM CDT) Anatomical Region Laterality Modality Spine Computed Tomogra phy 12/10/2019 2:13 AM CDT Impressions 12/10/2019 3:37 PM CDT IMPRESSION: 1.Bifrontal hemorrhagic contusions and small volume subarachnoid blood products. 2.Right tentorial subdural hematoma. 3.Right temporal bone fracture appears to spare the otic capsule. Fluid is present in the right mastoid air cells and middle ear cavity. 4.Posterior scalp laceration with small subgaleal hematoma and gas. 5.No evidence of acute fracture in the cervical, thoracic, or lumbar spine. 6.Moderate central canal stenosis at C7 due to focal calcification of the posterior longitudinal ligament. Report dictated by Caden Cerna M.D. Preliminary results were discussed with Dr. Blair by Dr. Cerna on 12/10/2019 2:29 AM. This report was approved by Caden Cerna on 12/10/2019 3:37 PM . I, Dr. CHARMAINE RAZA have personally reviewed and interpreted this examination/study. This report was electronically signed by CHARMAINE RAZA on 12/10/2019 3:37 PM . Narrative 12/10/2019 3:[address] HEAD WO CONTRAST, CT LUMBAR SPINE WO CONTRAST, CT THORACIC SPINE WO CONTRAST, CT CERVICAL SPINE WO CONTRAST DATE: 12/10/2019 2:07 AM EXAMINATION: 1.Computed tomography (CT) of the head without contrast 2.CT of the cervical spine without contrast 3.CT of the thoracic spine without contrast 4.CT of the lumbar spine without contrast HISTORY: Trauma TECHNIQUE: CT of the head, and cervical spine was performed without contrast according to standard protocol. Reformatted axial, sagittal, and coronal images of the thoracic and lumbar spine were obtained by the technologist from a concurrently performed body CT and sent to the workstation for review. COMPARISON: No prior study is available for comparison at the time of this dictation. FINDINGS: Head: Bifrontal hemorrhagic contusions are present with the largest discrete hematoma measuring 8 x 7 x 7 mm (series 12, image 26). Small volume subarachnoid blood products are seen along the anteriormost frontal sulci. A 2.5 mm right tentorial subdural hematomas present. There is suggestion of small petechial hemorrhages in bilateral temporal lobes. Gas is present adjacent along the right transverse sinus region with associated fracture of the right temporal bone which extends from the right mandibular fossa through the squamous and superior mastoid portions to the lambdoid suture. The otic capsule appears intact. There is partial opacification of multiple right mastoid air cells and the middle ear cavity. Mild opacification of the left mastoid air cells near the mastoid tip. The ventricles are of normal size, shape, and morphology. The basal cisterns are patent. No significant midline shift is seen. The chino-white matter differentiation is normal. The visualized portions of the orbits, orbital contents, and paranasal sinuses appear normal. A posterior scalp laceration with small subgaleal hematoma and gas is present posteriorly. Cervical spine: There is straightening of the normal cervical lordosis. Vertebral bodies are normal in height without evidence of acute fracture. Other than middle atlantoaxial joint osteoarthritis, the craniocervical junction appears normal. There is mild degenerative disc disease. There is moderate central canal stenosis at C7 due to thickened calcified posterior longitudinal ligament. There are varying degrees of mild facet osteoarthritis. There are varying degrees of mild uncovertebral joint osteoarthritis with the same degree of neural foraminal stenosis at these levels. No soft tissue abnormality is identified. Thoracic spine: The alignment is normal. Vertebral bodies are normal in height without evidence of acute fracture. Disc osteophyte complex/ossification of the PLL at the level of T11-T12. The remaining intervertebral discs appear normal. No central canal stenosis is seen. The facets appear normal. No neural foraminal stenosis is seen. There is subsegmental atelectasis in the dependent portions of the lung bases. Lumbar spine: The alignment is normal. Vertebral bodies are normal in height without evidence of acute fracture. Mild disc bulge at multiple levels. No significant central canal stenosis is seen. There are varying degrees of mild facet osteoarthritis. No significant neural foraminal stenosis is seen. 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 Procedure Note Charmaine Raza MD - 12/10/2019 CT HEAD WO CONTRAST, CT LUMBAR SPINE WO CONTRAST, CT THORACIC SPINE WO CONTRAST, CT CERVICAL SPINE WO CONTRAST DATE: 12/10/2019 2:07 AM EXAMINATION: 1.Computed tomography (CT) of the head without contrast 2.CT of the cervical spine without contrast 3.CT of the thoracic spine without contrast 4.CT of the lumbar spine without contrast HISTORY: Trauma TECHNIQUE: CT of the head, and cervical spine was performed without contrast according to standard protocol. Reformatted axial, sagittal,and coronal images of the thoracic and lumbar spine were obtained by the technologist from a concurrently performed body CT and sent to the workstation for review. COMPARISON: No prior study is available for comparison at the time ofthis dictation. FINDINGS: Head: Bifrontal hemorrhagic contusions are present with the largest discrete hematoma measuring 8 x 7 x 7 mm (series 12, image 26). Small volume subarachnoid blood products are seen along the anteriormost frontalsulci. A 2.5 mm right tentorial subdural hematomas present. There is suggestion of small petechial hemorrhages in bilateral temporal lobes. Gas ispresent adjacent along the right transverse sinus region with associatedfracture of the right temporal bone which extends from the right mandibular fossa through the squamous and superior mastoid portions to the lambdoidsuture. The otic capsule appears intact. There is partial opacification of multiple right mastoid air cells and the middle ear cavity. Mild opacification of the left mastoid air cells near the mastoid tip. The ventricles are of normal size, shape, and morphology. The basal cisterns are patent. No significant midline shift is seen. The chino-white matter differentiation is normal. The visualized portions of the orbits,orbital contents, and paranasal sinuses appear normal. A posterior scalp laceration with small subgaleal hematoma and gas is present posteriorly. Cervical spine: There is straightening of the normal cervical lordosis. Vertebral bodies are normal in height without evidence of acute fracture. Other thanmiddle atlantoaxial joint osteoarthritis, the craniocervical junction appears normal. There is mild degenerative disc disease. There is moderatecentral canal stenosis at C7 due to thickened calcified posterior longitudinal ligament. There are varying degrees of mild facet osteoarthritis. There are varying degrees of mild uncovertebral joint osteoarthritis with the same degree of neural foraminal stenosis at these levels. No soft tissue abnormality is identified. Thoracic spine: The alignment is normal. Vertebral bodies are normal in height without evidence of acute fracture. Disc osteophyte complex/ossification of the PLL at the level of T11-T12. The remaining intervertebral discs appear normal. No central canal stenosis is seen. The facets appear normal. No neural foraminal stenosis is seen. There is subsegmental atelectasis in the dependent portions of the lung bases. Lumbar spine: The alignment is normal. Vertebral bodies are normal in height without evidence of acute fracture. Mild disc bulge at multiple levels. No significant central canal stenosis is seen. There are varying degrees of mild facet osteoarthritis. No significant neural foraminal stenosis is seen. 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 IMPRESSION: 1.Bifrontal hemorrhagic contusions and small volume subarachnoid blood products. 2.Right tentorial subdural hematoma. 3.Right temporal bone fracture appears to spare the otic capsule. Fluidis present in the right mastoid air cells and middle ear cavity. 4.Posterior scalp laceration with small subgaleal hematoma and gas. 5.No evidence of acute fracture in the cervical, thoracic, or lumbarspine. 6.Moderate central canal stenosis at C7 due to focal calcification ofthe posterior longitudinal ligament. Report dictated by Caden Cerna M.D. Preliminary results were discussed with Dr. Blair by Dr. Cerna on 12/10/2019 2:29 AM. This report was approved by Caden Cerna on 12/10/2019 3:37 PM. I, Dr. CHARMAINE RAZA have personally reviewed and interpreted this examination/study. This report was electronically signed by CHARMAINE RAZA on12/10/2019 3:37 PM . Maribel Santa DO CT ORDERABLES * CT CERVICAL SPINE WO CONTRAST - C-Spine Trauma, Spine fracture (12/10/2019 2:06 AM CDT) Anatomical Region Laterality Modality Spine Computed Tomogra phy 12/10/2019 2:13 AM CDT Impressions 12/10/2019 3:37 PM CDT IMPRESSION: 1.Bifrontal hemorrhagic contusions and small volume subarachnoid blood products. 2.Right tentorial subdural hematoma. 3.Right temporal bone fracture appears to spare the otic capsule. Fluid is present in the right mastoid air cells and middle ear cavity. 4.Posterior scalp laceration with small subgaleal hematoma and gas. 5.No evidence of acute fracture in the cervical, thoracic, or lumbar spine. 6.Moderate central canal stenosis at C7 due to focal calcification of the posterior longitudinal ligament. Report dictated by Caden Cerna M.D. Preliminary results were discussed with Dr. Blair by Dr. Cerna on 12/10/2019 2:29 AM. This report was approved by Caden Cerna on 12/10/2019 3:37 PM . I, Dr. CHARMAINE RAZA have personally reviewed and interpreted this examination/study. This report was electronically signed by CHARMAINE RAZA on 12/10/2019 3:37 PM . Narrative 12/10/2019 3:[address] HEAD WO CONTRAST, CT LUMBAR SPINE WO CONTRAST, CT THORACIC SPINE WO CONTRAST, CT CERVICAL SPINE WO CONTRAST DATE: 12/10/2019 2:07 AM EXAMINATION: 1.Computed tomography (CT) of the head without contrast 2.CT of the cervical spine without contrast 3.CT of the thoracic spine without contrast 4.CT of the lumbar spine without contrast HISTORY: Trauma TECHNIQUE: CT of the head, and cervical spine was performed without contrast according to standard protocol. Reformatted axial, sagittal, and coronal images of the thoracic and lumbar spine were obtained by the technologist from a concurrently performed body CT and sent to the workstation for review. COMPARISON: No prior study is available for comparison at the time of this dictation. FINDINGS: Head: Bifrontal hemorrhagic contusions are present with the largest discrete hematoma measuring 8 x 7 x 7 mm (series 12, image 26). Small volume subarachnoid blood products are seen along the anteriormost frontal sulci. A 2.5 mm right tentorial subdural hematomas present. There is suggestion of small petechial hemorrhages in bilateral temporal lobes. Gas is present adjacent along the right transverse sinus region with associated fracture of the right temporal bone which extends from the right mandibular fossa through the squamous and superior mastoid portions to the lambdoid suture. The otic capsule appears intact. There is partial opacification of multiple right mastoid air cells and the middle ear cavity. Mild opacification of the left mastoid air cells near the mastoid tip. The ventricles are of normal size, shape, and morphology. The basal cisterns are patent. No significant midline shift is seen. The chino-white matter differentiation is normal. The visualized portions of the orbits, orbital contents, and paranasal sinuses appear normal. A posterior scalp laceration with small subgaleal hematoma and gas is present posteriorly. Cervical spine: There is straightening of the normal cervical lordosis. Vertebral bodies are normal in height without evidence of acute fracture. Other than middle atlantoaxial joint osteoarthritis, the craniocervical junction appears normal. There is mild degenerative disc disease. There is moderate central canal stenosis at C7 due to thickened calcified posterior longitudinal ligament. There are varying degrees of mild facet osteoarthritis. There are varying degrees of mild uncovertebral joint osteoarthritis with the same degree of neural foraminal stenosis at these levels. No soft tissue abnormality is identified. Thoracic spine: The alignment is normal. Vertebral bodies are normal in height without evidence of acute fracture. Disc osteophyte complex/ossification of the PLL at the level of T11-T12. The remaining intervertebral discs appear normal. No central canal stenosis is seen. The facets appear normal. No neural foraminal stenosis is seen. There is subsegmental atelectasis in the dependent portions of the lung bases. Lumbar spine: The alignment is normal. Vertebral bodies are normal in height without evidence of acute fracture. Mild disc bulge at multiple levels. No significant central canal stenosis is seen. There are varying degrees of mild facet osteoarthritis. No significant neural foraminal stenosis is seen. 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 Procedure Note Charmaine Raza MD - 12/10/2019 CT HEAD WO CONTRAST, CT LUMBAR SPINE WO CONTRAST, CT THORACIC SPINE WO CONTRAST, CT CERVICAL SPINE WO CONTRAST DATE: 12/10/2019 2:07 AM EXAMINATION: 1.Computed tomography (CT) of the head without contrast 2.CT of the cervical spine without contrast 3.CT of the thoracic spine without contrast 4.CT of the lumbar spine without contrast HISTORY: Trauma TECHNIQUE: CT of the head, and cervical spine was performed without contrast according to standard protocol. Reformatted axial, sagittal,and coronal images of the thoracic and lumbar spine were obtained by the technologist from a concurrently performed body CT and sent to the workstation for review. COMPARISON: No prior study is available for comparison at the time ofthis dictation. FINDINGS: Head: Bifrontal hemorrhagic contusions are present with the largest discrete hematoma measuring 8 x 7 x 7 mm (series 12, image 26). Small volume subarachnoid blood products are seen along the anteriormost frontalsulci. A 2.5 mm right tentorial subdural hematomas present. There is suggestion of small petechial hemorrhages in bilateral temporal lobes. Gas ispresent adjacent along the right transverse sinus region with associatedfracture of the right temporal bone which extends from the right mandibular fossa through the squamous and superior mastoid portions to the lambdoidsuture. The otic capsule appears intact. There is partial opacification of multiple right mastoid air cells and the middle ear cavity. Mild opacification of the left mastoid air cells near the mastoid tip. The ventricles are of normal size, shape, and morphology. The basal cisterns are patent. No significant midline shift is seen. The chino-white matter differentiation is normal. The visualized portions of the orbits,orbital contents, and paranasal sinuses appear normal. A posterior scalp laceration with small subgaleal hematoma and gas is present posteriorly. Cervical spine: There is straightening of the normal cervical lordosis. Vertebral bodies are normal in height without evidence of acute fracture. Other thanmiddle atlantoaxial joint osteoarthritis, the craniocervical junction appears normal. There is mild degenerative disc disease. There is moderatecentral canal stenosis at C7 due to thickened calcified posterior longitudinal ligament. There are varying degrees of mild facet osteoarthritis. There are varying degrees of mild uncovertebral joint osteoarthritis with the same degree of neural foraminal stenosis at these levels. No soft tissue abnormality is identified. Thoracic spine: The alignment is normal. Vertebral bodies are normal in height without evidence of acute fracture. Disc osteophyte complex/ossification of the PLL at the level of T11-T12. The remaining intervertebral discs appear normal. No central canal stenosis is seen. The facets appear normal. No neural foraminal stenosis is seen. There is subsegmental atelectasis in the dependent portions of the lung bases. Lumbar spine: The alignment is normal. Vertebral bodies are normal in height without evidence of acute fracture. Mild disc bulge at multiple levels. No significant central canal stenosis is seen. There are varying degrees of mild facet osteoarthritis. No significant neural foraminal stenosis is seen. 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 IMPRESSION: 1.Bifrontal hemorrhagic contusions and small volume subarachnoid blood products. 2.Right tentorial subdural hematoma. 3.Right temporal bone fracture appears to spare the otic capsule. Fluidis present in the right mastoid air cells and middle ear cavity. 4.Posterior scalp laceration with small subgaleal hematoma and gas. 5.No evidence of acute fracture in the cervical, thoracic, or lumbarspine. 6.Moderate central canal stenosis at C7 due to focal calcification ofthe posterior longitudinal ligament. Report dictated by Caden Cerna M.D. Preliminary results were discussed with Dr. Blair by Dr. Cerna on 12/10/2019 2:29 AM. This report was approved by Caden Cerna on 12/10/2019 3:37 PM. I, Dr. CHARMAINE RAZA have personally reviewed and interpreted this examination/study. This report was electronically signed by CHARMAINE RAZA on12/10/2019 3:37 PM . Maribel Leeyolette Kiet [facility] CT ORDERABLES * XR CHEST 1VW PORTABLE (12/10/2019 12:53 AM CDT) Anatomical Region Laterality Modality Chest Radiographic Serenity ging 12/10/2019 11:1 5 AM CDT Impressions 12/10/2019 11:27 AM CDT FINDINGS/IMPRESSION: The lungs are hypoinflated with bronchovascular crowding. There is no focal consolidation, pleural effusion, or pneumothorax. The cardiomediastinal silhouette is normal. The visible bony thorax is intact. Dictated by Shahriar Jacobs MD (interventional radiology technologist). I, Dr. LO SALGADO have personally reviewed and interpreted this examination/study. This report was electronically signed by LO SALGADO on 12/10/2019 11:27 AM . Narrative 12/10/2019 11:27 AM CDT EXAMINATION: XR CHEST 1VW PORTABLE HISTORY: Trauma COMPARISON: No prior study is available for comparison at the time of this dictation. Procedure Note Lo Salgado DO - 12/10/2019 EXAMINATION: XR CHEST 1VW PORTABLE HISTORY: Trauma COMPARISON: No prior study is available for comparison at the time ofthis dictation. FINDINGS/IMPRESSION: The lungs are hypoinflated with bronchovascular crowding. There is no focal consolidation, pleural effusion, or pneumothorax. The cardiomediastinal silhouette is normal. The visible bony thorax isintact. Dictated by Shahriar Jacobs MD (interventional radiology technologist). Dr. LO Carmona have personally reviewed and interpreted this examination/study. This report was electronically signed by LO SALGADO on 12/10/2019 11:27 AM . Maribelkamar Vicente Nelycorettapadmini [facility]G ORDERABLES * XR PELVIS 1 OR 2VW (12/10/2019 12:53 AM CDT) Anatomical Region Laterality Modality Pelvis Radiographic Serenity ging 12/10/2019 11:1 4 AM CDT Impressions 12/10/2019 11:27 AM CDT IMPRESSION: No acute fracture identified. Dictated by Shahriar Jacobs MD (interventional radiology technologist). Dr. LO Carmona have personally reviewed and interpreted this examination/study. This report was electronically signed by LO SALGADO on 12/10/2019 11:27 AM . Narrative 12/10/2019 11:27 AM CDT EXAMINATION: XR PELVIS 1 OR 2VW HISTORY: Trauma Fracture suspected COMPARISON: No prior study is available for comparison at the time of this dictation. FINDINGS: No acute fracture is identified. The femoral heads appear well-seated within their respective acetabula. The hip joint spaces are preserved. The pubic symphysis is intact. The sacroiliac joints are normal. Procedure Note Lo Salgado DO - 12/10/2019 EXAMINATION: XR PELVIS 1 OR 2VW HISTORY: Trauma Fracture suspected COMPARISON: No prior study is available for comparison at the time ofthis dictation. FINDINGS: No acute fracture is identified. The femoral heads appear well-seated within their respective acetabula. The hip joint spaces are preserved.The pubic symphysis is intact. The sacroiliac joints are normal. IMPRESSION: No acute fracture identified. Dictated by Shahriar Jacobs MD (interventional radiology technologist). I, Dr. OL SALGADO have personally reviewed and interpreted this examination/study. This report was electronically signed by LO SALGADO on 12/10/2019 11:27 AM . Maribel Santa DO DIAGNOSTIC IMAG ING ORDERABLES * TYPE + SCREEN PANEL (12/10/2019 12:52 AM CDT) Antibody Screen NEG 0 2:20 AM CDT [facility] B[facility]OD [facility] ABO Rh O POS 12/10/2019 2:20 AM CDT [facility] B[facility]OD [facility] Blood Bank BLOOD SPECIMEN / Unknown Venipuncture / Unknown 12/10/2019 12:52 AM CDT 12/10/2019 1:23 AM CDT Maribel Santa DO LAB - BLOOD BAN K ORDERABLES Performing Organization Address [facility] de Phone Number [facility] B[facility]OD [facility] LAB [address] [place] [address] * (ABNORMAL) PT-INR [facility] (12/10/2019 12:51 AM CDT) PT 17.5(H) 12.1 - 14.8 Seconds 12/10/2019 1:28 AM CDT [facility] INR 1.5 See Comment 12/10/2019 1:28 AM CDT [facility] Comment:The suggested therap eutic range for standard coumadin (warfarin) therapy is an INR of 2.0-3.0. For high-risk patients (Mechanical Mitral Valve Prosthesis, etc.), the suggested prophylactic therapeutic range is an INR of 2.5-3.5. Blood BLOOD SPECIMEN / Unknown Venipuncture / Unknown 12/10/2019 12:51 AM CDT 12/10/2019 1:10 AM CDT Maribel Santa DO LAB - COAGULATI ON ORDERABLES Performing Organization Address [facility]/ZIP Co de Phone Number [address] [address], [place] [phone] * (ABNORMAL) HCG BETA BLOOD QUANTITATIVE (12/10/2019 12:51 AM CDT) Beta-hCG Total Quantitative 5(H) <5 mIU/mL 12/10/2019 1:35 AM CDT [facility] Comment: This assay is cleared for use in the early detection of only. It is not approved for any other uses such as tumor marker screening, tumor marker monitoring, etc. and should not be used for any other purposes. HCG Numeric Result Interpretation: Non- Females: < 5 mIU/mL Post-Menopausal Females: < 7 mIU/mL Blood BLOOD SPECIMEN / Unknown Venipuncture / Unknown 12/10/2019 12:51 AM CDT 12/10/2019 1:10 AM CDT Maribel Santa DO LAB - CHEMISTRY ORDERABLES Performing Organization Address City/[facility]/ZIP Co de Phone Number [address], [facility] [phone] * (ABNORMAL) ALCOHOL ETHYL BLOOD (12/10/2019 12:51 AM CDT) Pathologist [facility] Ethanol (mg/dL) 100(H) None Detected mg/dL 12/10/2019 1:29 AM CDT [facility] Comment:Ethanol in the patie nt's blood will contribute to the osmolar gap. Ethanol's contribution to the osmolar gap can be estimated by dividing the concentration of ethanol in mg/dL by 4.6. Blood BLOOD SPECIMEN / Unknown Venipuncture / Unknown 12/10/2019 12:51 AM CDT 12/10/2019 1:10 AM CDT Maribel Santa DO LAB - CHEMISTRY ORDERABLES Performing Organization Address [facility]/ZIP Co de Phone Number [address] [phone] [phone] Care Teams Shellfish Checker Relationship Specialty Start Date End Date Norma Orozco MD PCP - General Internal Medicine 02/26/20
--- OUTSIDE RECORDS SUMMARY | 2024-06-14 15:17 | XMS_ITS | Encounter Summary ---
Author Organization [facility] Address [facility] [place] [address] Care Team Providers Care Packaging Sales Representative Name Role Phone Ria Parr PA-C Primary Care Provider [phone]- [phone] Norma Orozco MD Primary Care Provider [phone]- [phone] Encounter Details Date Type Department Care Team (Late st Contact Info) Description 08/05/2018 SHOP HAND ONLY [facility] Priority [facility] - [address] [place] [address] Scanned, Documents Social History Tobacco Use Types Packs/Day Years Used Date Smoking Tobacco: Never Assessed Comments Unknown Sex and Gender Information Value Date Recorded Sex Assigned at Not on file Legal Sex Female 7:02 PM CDT Gender Identity Not on file Sexual Orientation Not on file documented as of this encounter OR Notes * Op Note - Zscanned, Documents - 08/05/2018 7:23 AM CDT JULIETH CARPENTER MD: Acct: [id number] Admit/Service Date: 08/04/18 Discharge Date: 08/04/18 : 1965 Pt Type: DEP SDC Sex: F Ord Site: [facility] OPERATIVE RECORD Date of Operation: 08/04/2018 Surgeon: Frank Adrian M.D. Ass't: Chart Document Preoperative Diagnosis: Displaced distal radius fracture right wrist. Postoperative Diagnosis: Displaced distal radius fracture right wrist. Name of Operation: Closed reduction and percutaneous pinning of distal radius fracture of the right wrist. PROCEDURE AND FINDINGS: ANESTHESIA: General. PROCEDURE: After suitable induction of general anesthesia the patient's index and long fingers were placed in finger traps and the forearm was placed in traction. The C-arm was brought into view and a manipulative reduction was performed to create the volar tilt to the distal radius. Once this was obtained the forearm and wrist and hand were prepped and then using 0.062 Steinmann pins subcutaneously, two pins were passed through the radial border of the radius across the fracture site into the distal portion of the radius. These pins adequately affixed to the fracture site. Pins were cut off and capped with pin caps. Then were dressed with Xeroform gauze, 4 x 4's, sterile Webril and then a short-arm cast. X-ray demonstrated good positioning of the pins. She was then awakened and returned to the recovery room in satisfactory condition. Electronically Signed By: Frank Adrian M.D. 08/08/2018 03:00 P Frank Adrian M.D. DB:crystal A A cc: Bryant Darnell PA-C [id number] documented in this encounter Plan of Treatment Not on file documented as of this encounter Visit Diagnoses Not on filedocumented in this encounter Additional Health Concerns Infection Onset Date Last Indicated Resolved Time COVID-19 Rule Out 11/27/2019 11/27/2019 11/27/2019 12:32 PM CDT COVID-19 Rule Out 03/08/2020 03/08/2020 03/11/2020 7:01 PM WELFARE AIDE COVID-19 Confirmed 03/08/2020 03/08/2020 12:36 AM WELFARE AIDE COVID-19 Rule Out 11/07/2020 11/07/2020 11/09/2020 7:26 PM CDT documented as of this encounter Care Teams Packaging Sales Representative Relationship Specialty Start Date End Date Ria Parr PA-C [address] [facility] [address] [place] [address] PCP - General PHYSICIAN CUSHION WORKER 10/17/18 04/23/24 Norma Orozco MD [address] [place] [id number] PCP - General INTERNAL MEDICINE 04/24/24 documented as of this encounter
--- OUTSIDE RECORDS SUMMARY | 2024-06-14 15:17 | XMS_ITS | Clinical Summary ---
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 repeat testing. The classification and Diagnosis of Diabetes Diabetes Care 202; 46: S19-S40. Current interpretive data was last revised 2022. Calcium 8.9 8.5 - 10.3 mg/dL [facility] Blood 05/25/2024 5:16 AM RUBBER PRESS OPERATOR 05/25/2024 5:38 AM RUBBER PRESS OPERATOR us Liam GARCIA LAB BLOOD ORDERABLES Final Resul t Performing Organization Address City/[facility]/ZIP Co de Phone Number [address]AYL[address] [place] [address] * Troponin T high-sensitivity (05/24/2024 4:49 PM RUBBER PRESS OPERATOR) Trop T hs 8 <=14 ng/L Comment: Interpretive Data For further hscTnT resources including the diagnostic algorithm and an aid in interpretation, copy and paste this link: https://nrl.testcatalog.org/show/hsTrop Current Interpretive Data last revised 2020. Blood 05/24/2024 4:49 PM RUBBER PRESS OPERATOR 05/24/2024 5:01 PM RUBBER PRESS OPERATOR Jovan Mejia MD LAB BLOOD ORDERABLES Final R esult Performing Organization Address [facility] Co de Phone Number TAYL[address] [place] [employer] [place] [address] * Pro B-type natriuretic peptide (05/24/2024 4:49 PM RUBBER PRESS OPERATOR) NT-proBNP 214 <=300 pg/mL Comment: Interpretive Comments: A. Dyspnea in Acute Care Setting All Ages: < 300 pg/ml, acute heart failure unlikely. < 50 yrs: 300 - 450 pg/ml, further investigation warranted. > 450 pg/ml, acute heart failure likely. 50 - 74 yrs: 300 - 900 pg/ml, further investigation warranted. > 900 pg/ml, acute heart failure likely . > or = 75 yrs: 450 - 1800 pg/ml, further investigation warranted. > 1800 pg/ml, acute heart failure likely. B. Non-acute Setting < 75 yrs < 125 pg/ml, rules out heart failure. > or = 125 pg/ml, further investigation warranted. > or = 75 yrs < 450 pg/ml, rules out heart failure. > or = 450 pg/ml, further investigation warranted. - Knowledge of each individual patient's NT-proBNP range may be more useful than using similar cut-points for every patient. Please note that marked elevations in NT-proBNP levels may be observed in state other than Left Ventricular Congestive Failure, including: acute coronary syndromes, right heart strain/failure (including pulmonary embolism and cor pulmonale), critical illness, renal failure, as well as advanced age. - References: 1. Marilia PUCKETT et.al. Eur Heart J. 2006:27:330-337. 2. Betsy HURTADO, Cynthia FLOREZ. J. AM Reece Cardiol: Cardiovasc Imag. 2009;2: 216- 225. Interpretive Data Last Revised Date: 2017. Blood 05/24/2024 4:49 PM RUBBER PRESS OPERATOR 05/24/2024 5:01 PM RUBBER PRESS OPERATOR Jovan Mejia MD LAB BLOOD ORDERABLES Final R esult Performing Organization Address [facility] Co de Phone Number TAYL[address] [place] [address] * Thyroid Function Tichnor (05/24/2024 4:49 PM RUBBER PRESS OPERATOR) TSH 0.48 0.30 - 4.20 mcIUnit/mL Blood 05/24/2024 4:49 PM RUBBER PRESS OPERATOR 05/24/2024 5:01 PM RUBBER PRESS OPERATOR Jovan Mejia MD LAB BLOOD ORDERABLES Final R esult Performing Organization Address [facility] Co de Phone Number [address] [address] * eGFR (05/24/2024 4:50 AM RUBBER PRESS OPERATOR) eGFR >90 >=60 mL/min/1. 73 m2 Comment: Interpretive Data Reference Interval Normal >/= 90 mL/min/1.73m2 Mildly decreased* 60 - 89 mL/min/1.73m2 Mildly to moderately decreased 45 - 59 mL/min/1.73m2 Moderately to severely decreased 30 - 44 mL/min/1.73m2 Severely decreased 15 - 29 mL/min/1.73m2 Kidney Failure < 15 mL/min/1.73m2 *Relative to young adult level Estimated glomerular filtration rate is determined by the 2020 CKD-EPI equation recommended by the National Kidney Foundation (A Unifying Approach to GFR Estimation: Recommendations of the NKF-ASK Task Force on Reassessing the Inclusion of Race in Diagnosing Kidney Disease, JASN 2020). The CKD-EPI equation should not be used for patients with unstable renal function and has not been validated in children and those over 70. Current interpretive data was last reviewed 2021. Blood 05/24/2024 4:50 AM RUBBER PRESS OPERATOR 05/24/2024 5:10 AM RUBBER PRESS OPERATOR us Liam GARCIA LAB BLOOD ORDERABLES Final Resul t [place] [id number] [facility] Department of Laboratories [place], [place] [id number] * (ABNORMAL) Differential, auto (05/24/2024 4:50 AM RUBBER PRESS OPERATOR) Neutrophil abs 7.5(H) 1.5 - 6.5 K/cumm Imm gran abs 0.1 0.0 - 0.1 K/cumm [facility] Lymphocyte abs 1.8 0.8 - 3.3 K/cumm [facility] Monocyte abs 0.8 0.2 - 0.8 K/cumm [facility] Eosinophil abs 0.0 0.0 - 0.5 K/cumm [facility] Basophil abs 0.0 0.0 - 0.1 K/cumm [facility] Neutrophil pct 73.7 % [facility] Comment: Interpretive Data Percent cell count reference ranges are not reported, since discordance with absolute values may lead to misinterpretation of CBC data. Current Interpretive Data was last revised on 2017. Imm gran pct 0.5 % [facility] Comment: Interpretive Data Percent cell count reference ranges are not reported, since discordance with absolute values may lead to misinterpretation of CBC data. Current Interpretive Data was last revised on 2017. Lymphocyte pct 17.7 % [facility] Comment: Interpretive Data Percent cell count reference ranges are not reported, since discordance with absolute values may lead to misinterpretation of CBC data. Current Interpretive Data was last revised on 2017. Monocyte pct 7.5 % [facility] Comment: Interpretive Data Percent cell count reference ranges are not reported, since discordance with absolute values may lead to misinterpretation of CBC data. Current Interpretive Data was last revised on 2017. Eosinophil pct 0.3 % [facility] Comment: Interpretive Data Percent cell count reference ranges are not reported, since discordance with absolute values may lead to misinterpretation of CBC data. Current Interpretive Data was last revised on 2017. Basophil pct 0.3 % [facility] Comment: Interpretive Data Percent cell count reference ranges are not reported, since discordance with absolute values may lead to misinterpretation of CBC data. Current Interpretive Data was last revised on 2017. Blood 05/24/2024 4:50 AM RUBBER PRESS OPERATOR 05/24/2024 5:10 AM RUBBER PRESS OPERATOR Liam GARCIA LAB BLOOD ORDERABLES Final Resul t [facility] [address] [facility] [place] [address] * (ABNORMAL) CBC with auto differential (05/24/2024 4:50 AM RUBBER PRESS OPERATOR) WBC 10.1(H) 3.8 - 9.9 K/cumm Hgb 9.7(L) 11.9 - 15.5 g/dL [facility] Hct 29.7(L) 35.6 - 45.5 % [facility] Plt 222 150 - 400 K/cumm [facility] MPV 10.5 9.1 - 12.3 fL [facility] RBC 3.14(L) 3.90 - 5.20 M/cumm [facility] MCV 94.6 81.3 - 96.4 fL [facility] MCH 30.9 27.1 - 33.3 pg [facility] MCHC 32.7 32.3 - 35.7 g/dL [facility] RDW CV 13.3 11.1 - 14.9 % [facility] RDW SD 45.8 35.7 - 48.1 fL [facility] NRBC abs 0.00 0.00 - 0.01 K/cumm [facility] Blood 05/24/2024 4:50 AM RUBBER PRESS OPERATOR 05/24/2024 5:10 AM RUBBER PRESS OPERATOR Liam GARCIA LAB BLOOD ORDERABLES Final Resul t Performing Organization Address [facility] de Phone Number RAY [address] [address] * Basic metabolic panel (05/24/2024 4:50 AM RUBBER PRESS OPERATOR) Sodium 139 135 - 145 mmol/L Potassium, pl 3.7 3.3 - 4.9 mmol/L [facility] Chloride 107 97 - 110 mmol/L [facility] CO2 26 22 - 32 mmol/L [facility] Anion gap 6 2 - 15 mmol/L [facility] BUN 14 6 - 25 mg/dL [facility] Creatinine 0.61 0.60 - 1.10 mg/dL [facility] Glucose 104 70 - 199 mg/dL [facility] Comment: Interpretive Data Fasting glucose >/= 126 mg/dl is diagnostic for diabetes. Fasting is defined as no caloric intake for at least 8 hours. Fasting glucose between 100 mg/dl to 125 mg/dl is diagnostic of prediabetes. In a patient with classic symptoms of hyperglycemia or hyperglycemic crisis, a random glucose >/= 200 mg/dl is diagnostic for diabetes. In the absence of unequivocal hyperglycemia, results should be confirmed by repeat testing. The classification and Diagnosis of Diabetes Diabetes Care 202; 46: S19-S40. Current interpretive data was last revised 2022. Calcium 9.3 8.5 - 10.3 mg/dL [facility] Blood 05/24/2024 4:50 AM RUBBER PRESS OPERATOR 05/24/2024 5:10 AM RUBBER PRESS OPERATOR Liam GARCIA LAB BLOOD ORDERABLES Final Resul t Performing Organization Address [facility] Co de Phone Number RAY [address] [place] [address] * POCT glucose (05/23/2024 9:35 AM RUBBER PRESS OPERATOR) Glucose, POC 122 70 - 199 mg/dL Blood 05/23/2024 9:35 AM RUBBER PRESS OPERATOR 05/23/2024 9:35 AM RUBBER PRESS OPERATOR Heavenly Stratton DO LAB POCT ORDERABLES - DEVICE F inal Result Performing Organization Address [facility] Co de Phone Number RAY [address] [place] [address] * eGFR (05/23/2024 5:12 AM RUBBER PRESS OPERATOR) Pathologist [facility] eGFR >90 >=60 mL/min/1. 73 m2 Comment: Interpretive Data Reference Interval Normal >/= 90 mL/min/1.73m2 Mildly decreased* 60 - 89 mL/min/1.73m2 Mildly to moderately decreased 45 - 59 mL/min/1.73m2 Moderately to severely decreased 30 - 44 mL/min/1.73m2 Severely decreased 15 - 29 mL/min/1.73m2 Kidney Failure < 15 mL/min/1.73m2 *Relative to young adult level Estimated glomerular filtration rate is determined by the 2020 CKD-EPI equation recommended by the National Kidney Foundation (A Unifying Approach to GFR Estimation: Recommendations of the NKF-ASK Task Force on Reassessing the Inclusion of Race in Diagnosing Kidney Disease, JASN 2020). The CKD-EPI equation should not be used for patients with unstable renal function and has not been validated in children and those over 70. Current interpretive data was last reviewed 2021. Blood 05/23/2024 5:12 AM RUBBER PRESS OPERATOR 05/23/2024 5:25 AM RUBBER PRESS OPERATOR Liam GARCIA LAB BLOOD ORDERABLES Final Resul t Performing Organization Address [facility] Co de Phone Number RAY [address] Department [place] [address] * (ABNORMAL) Differential, auto (05/23/2024 5:12 AM RUBBER PRESS OPERATOR) Pathologist [facility] Neutrophil abs 11.3(H) 1.5 - 6.5 K/cumm Imm gran abs 0.1 0.0 - 0.1 K/cumm [facility] Lymphocyte abs 1.8 0.8 - 3.3 K/cumm [facility] Monocyte abs 0.9(H) 0.2 - 0.8 K/cumm [facility] Eosinophil abs 0.0 0.0 - 0.5 K/cumm [facility] Basophil abs 0.0 0.0 - 0.1 K/cumm [facility] Neutrophil pct 80.5 % [facility] Comment: Interpretive Data Percent cell count reference ranges are not reported, since discordance with absolute values may lead to misinterpretation of CBC data. Current Interpretive Data was last revised on 2017. Imm gran pct 0.4 % [facility] Comment: Interpretive Data Percent cell count reference ranges are not reported, since discordance with absolute values may lead to misinterpretation of CBC data. Current Interpretive Data was last revised on 2017. Lymphocyte pct 12.7 % [facility] Comment: Interpretive Data Percent cell count reference ranges are not reported, since discordance with absolute values may lead to misinterpretation of CBC data. Current Interpretive Data was last revised on 2017. Monocyte pct 6.1 % [facility] Comment: Interpretive Data Percent cell count reference ranges are not reported, since discordance with absolute values may lead to misinterpretation of CBC data. Current Interpretive Data was last revised on 2017. Eosinophil pct 0.1 % [facility] Comment: Interpretive Data Percent cell count reference ranges are not reported, since discordance with absolute values may lead to misinterpretation of CBC data. Current Interpretive Data was last revised on 2017. Basophil pct 0.2 % [facility] Comment: Interpretive Data Percent cell count reference ranges are not reported, since discordance with absolute values may lead to misinterpretation of CBC data. Current Interpretive Data was last revised on 2017. Blood 05/23/2024 5:12 AM RUBBER PRESS OPERATOR 05/23/2024 5:25 AM RUBBER PRESS OPERATOR us Liam GARCIA LAB BLOOD ORDERABLES Final Resul t [facility] [address] [facility] [place] [address] * (ABNORMAL) CBC with auto differential (05/23/2024 5:12 AM RUBBER PRESS OPERATOR) WBC 14.0(H) 3.8 - 9.9 K/cumm Hgb 10.2(L) 11.9 - 15.5 g/dL [facility] Hct 30.7(L) 35.6 - 45.5 % [facility] Plt 254 150 - 400 K/cumm [facility] MPV 10.2 9.1 - 12.3 fL [facility] RBC 3.27(L) 3.90 - 5.20 M/cumm [facility] MCV 93.9 81.3 - 96.4 fL [facility] MCH 31.2 27.1 - 33.3 pg [facility] MCHC 33.2 32.3 - 35.7 g/dL [facility] RDW CV 13.0 11.1 - 14.9 % [facility] RDW SD 44.6 35.7 - 48.1 fL [facility] NRBC abs 0.00 0.00 - 0.01 K/cumm [facility] Blood 05/23/2024 5:12 AM RUBBER PRESS OPERATOR 05/23/2024 5:25 AM RUBBER PRESS OPERATOR us Liam GARCIA LAB BLOOD ORDERABLES Final Resul t [facility] [address] [facility] [place] [address] * (ABNORMAL) Basic metabolic panel (05/23/2024 5:12 AM RUBBER PRESS OPERATOR) [facility] Sodium 131(L) 135 - 145 mmol/L Potassium, pl 3.4 3.3 - 4.9 mmol/L [facility] Chloride 100 97 - 110 mmol/L [facility] CO2 23 22 - 32 mmol/L [facility] Anion gap 8 2 - 15 mmol/L [facility] BUN 10 6 - 25 mg/dL [facility] Creatinine 0.56(L) 0.60 - 1.10 mg/dL [facility] Glucose 129 70 - 199 mg/dL [facility] Comment: Interpretive Data Fasting glucose >/= 126 mg/dl is diagnostic for diabetes. Fasting is defined as no caloric intake for at least 8 hours. Fasting glucose between 100 mg/dl to 125 mg/dl is diagnostic of prediabetes. In a patient with classic symptoms of hyperglycemia or hyperglycemic crisis, a random glucose >/= 200 mg/dl is diagnostic for diabetes. In the absence of unequivocal hyperglycemia, results should be confirmed by repeat testing. The classification and Diagnosis of Diabetes Diabetes Care 202; 46: S19-S40. Current interpretive data was last revised 2022. Calcium 8.8 8.5 - 10.3 mg/dL [facility] Blood 05/23/2024 5:12 AM RUBBER PRESS OPERATOR 05/23/2024 5:25 AM RUBBER PRESS OPERATOR Liam GARCIA LAB BLOOD ORDERABLES Final Resul t Performing Organization Address [facility] Co de Phone Number [address] [place] [address] * POCT glucose (05/22/2024 6:30 PM RUBBER PRESS OPERATOR) [facility] Signature Glucose, POC 154 70 - 199 mg/dL Glucose comment 1 Use This Result [facility] Blood 05/22/2024 6:30 PM RUBBER PRESS OPERATOR 05/22/2024 6:30 PM RUBBER PRESS OPERATOR Heavenly Stratton DO LAB POCT ORDERABLES - DEVICE F inal Result Performing Organization Address [facility] Co de Phone Number [address] [place] [address] * XR Hip Right 2 or 3 Views (05/22/2024 2:10 PM RUBBER PRESS OPERATOR) Anatomical Region Laterality Modality Lower Extremities, Hip, Pelvis Right C omputed Radiography 05/22/2024 2:23 PM RUBBER PRESS OPERATOR Narrative 05/22/2024 2:25 PM RUBBER PRESS OPERATOR EXAM DESCRIPTION: XR HIP RIGHT 2 OR 3 VIEWS REASON FOR STUDY: Pre-Surgery or Post-Surgery Health Examination S/P total hip replacement in OR today TECHNIQUE: Two views of the right hip COMPARISON: 02/22/2024 and 12/23/2023 FINDINGS: There are recent postoperative changes from right hip arthroplasty projecting in expected position. Postsurgical gas and soft tissue swelling are seen in the operative bed. No periprosthetic fracture. IMPRESSION: Recent postoperative changes from right hip arthroplasty. THIS IS AN ELECTRONICALLY VERIFIED FINAL REPORT 05/22/2024 2:25 PM - Electronically signed by Jose BARRETO T: Report ID: [id number] Reading Location: [place] [address] Procedure Note Jose Schafer MD - 05/22/2024 EXAM DESCRIPTION: XR HIP RIGHT 2 OR 3 VIEWS REASON FOR STUDY: Pre-Surgery or Post-Surgery Health Examination S/P total hip replacement in OR today TECHNIQUE: Two views of the right hip COMPARISON: 02/22/2024 and 12/23/2023 FINDINGS: There are recent postoperative changes from right hiparthroplasty projecting in expected position. Postsurgical gas and soft tissueswelling are seen in the operative bed. No periprosthetic fracture. IMPRESSION: Recent postoperative changes from right hip arthroplasty. THIS IS AN ELECTRONICALLY VERIFIED FINAL REPORT 05/22/2024 2:25 PM - Electronically signed by Jose BARRETO T: Report ID: [id number] Reading Location: [place] [address] Liam GARCIA IMG XR PROCEDURES Final Result * FL Fluoroscopy < 1 Hour (05/22/2024 1:30 PM RUBBER PRESS OPERATOR) Narrative [email or web address] - 05/22/2024 1:31 PM RUBBER PRESS OPERATOR The images from this study are not interpreted by Radiology. Please refer to the physician's procedure / OR operative note. Heavenly Stratton DO IMG FLUOROSCOPY PROCEDURES Fin al Result [id number] * OH AN ELECTIVE ENDOTRACHEAL AIRWAY, OH AN PROCEDURE PLACEHOLDER (05/22/2024 12:18 PM RUBBER PRESS OPERATOR) Narrative Susan Bob MD - 05/22/2024 12:18 PM RUBBER PRESS OPERATOR Susan Bob MD 05/22/2024 12:18 PM Airway Patient location: OR Urgency: elective Indications for airway management: anesthesia Difficult airway: no Staff: Placed by: Anesthesiologist: Susan Bob MD Emergent airway documentation: Risks and benefits discussed: yes Consent obtained: yes Consent given by: patient Airway prep: Preoxygenated: yes Patient position: sniffing Spontaneous ventilation during airway: absent Sedation level during airway: deep Final airway details: Final airway type: endotracheal airway Tube type: ETT ETT size: 7.0 mm Cuffed: yes Technique used for successful ETT placement: video laryngoscopy Devices/Methods used in placement: intubating stylet Insertion site: oral Blade type: Tate Video blade type: Allen Blade size: 3 Cormack-Lehane (direct): grade I - full view of glottis Cormack-Lehane (video): grade I - full view of glottis Cuff inflated with: air Placement verified by: auscultation and CO2 detection Airway secured with: silk tape Susan Bob MD ANESTHESIA ORDERABLES Final Result * ABO / Rh Confirmation Testing (05/22/2024 9:44 AM RUBBER PRESS OPERATOR) ABO/Rh Confirmation O Positive [facility] Blood 05/22/2024 9:44 AM RUBBER PRESS OPERATOR 05/22/2024 9:47 AM RUBBER PRESS OPERATOR Heavenly Stratton DO LAB BLOOD ORDERABLES Final Res ult Performing Organization Address City/State/[facility] Co de Phone Number [facility] [address] [facility] [place] [address] [facility] * ECG 12 lead (05/08/2024 1:20 PM RUBBER PRESS OPERATOR) Ventricular Rate EKG/Min 53 BPM [facility] Atrial Rate 53 BPM [facility] OH-Interval (MSEC) 148 ms [facility] QRS-Interval (MSEC) 78 ms [facility] QT-Interval (MSEC) 446 ms [facility] QTc 418 ms [facility] P [place] 63 degrees [facility] R [place] 21 degrees [facility] T [place] 12 degrees [facility] Diagnosis Sinus bradycardia Otherwise normal ECG When compared with ECG of 24-FEB-2019 08:48, No significant change was found Confirmed by BALWINDER ESTRADA M.D. ([id number]) on 05/08/2024 9:40:53 PM [facility] 05/08/2024 1:20 PM RUBBER PRESS OPERATOR 05/08/2024 9:40 PM RUBBER PRESS OPERATOR Jany Ferguson TRACK PRODUCTION ENGINEER ECG ORDERABLES Cesia l Result [facility] * eGFR (05/08/2024 1:10 PM RUBBER PRESS OPERATOR) eGFR >90 >=60 mL/min/1. 73 m2 Comment: Interpretive Data Reference Interval Normal >/= 90 mL/min/1.73m2 Mildly decreased* 60 - 89 mL/min/1.73m2 Mildly to moderately decreased 45 - 59 mL/min/1.73m2 Moderately to severely decreased 30 - 44 mL/min/1.73m2 Severely decreased 15 - 29 mL/min/1.73m2 Kidney Failure < 15 mL/min/1.73m2 *Relative to young adult level Estimated glomerular filtration rate is determined by the 2020 CKD-EPI equation recommended by the National Kidney Foundation (A Unifying Approach to GFR Estimation: Recommendations of the NKF-ASK Task Force on Reassessing the Inclusion of Race in Diagnosing Kidney Disease, JASN 2020). The CKD-EPI equation should not be used for patients with unstable renal function and has not been validated in children and those over 70. Current interpretive data was last reviewed 2021. Blood 05/08/2024 1:10 PM RUBBER PRESS OPERATOR 05/08/2024 1:20 PM RUBBER PRESS OPERATOR us Heavenly Stratton DO LAB BLOOD ORDERABLES Final Res ult [facility] [address] [facility] [place] [address] * Differential, auto (05/08/2024 1:10 PM RUBBER PRESS OPERATOR) Neutrophil abs 4.4 1.5 - 6.5 K/cumm Imm gran abs 0.0 0.0 - 0.1 K/cumm [facility] Lymphocyte abs 2.0 0.8 - 3.3 K/cumm [facility] Monocyte abs 0.4 0.2 - 0.8 K/cumm [facility] Eosinophil abs 0.1 0.0 - 0.5 K/cumm [facility] Basophil abs 0.0 0.0 - 0.1 K/cumm [facility] Neutrophil pct 63.9 % [facility] Comment: Interpretive Data Percent cell count reference ranges are not reported, since discordance with absolute values may lead to misinterpretation of CBC data. Current Interpretive Data was last revised on 2017. Imm gran pct 0.4 % [facility] Comment: Interpretive Data Percent cell count reference ranges are not reported, since discordance with absolute values may lead to misinterpretation of CBC data. Current Interpretive Data was last revised on 2017. Lymphocyte pct 29.0 % [facility] Comment: Interpretive Data Percent cell count reference ranges are not reported, since discordance with absolute values may lead to misinterpretation of CBC data. Current Interpretive Data was last revised on 2017. Monocyte pct 5.4 % [facility] Comment: Interpretive Data Percent cell count reference ranges are not reported, since discordance with absolute values may lead to misinterpretation of CBC data. Current Interpretive Data was last revised on 2017. Eosinophil pct 0.7 % [facility] Comment: Interpretive Data Percent cell count reference ranges are not reported, since discordance with absolute values may lead to misinterpretation of CBC data. Current Interpretive Data was last revised on 2017. Basophil pct 0.6 % [facility] Comment: Interpretive Data Percent cell count reference ranges are not reported, since discordance with absolute values may lead to misinterpretation of CBC data. Current Interpretive Data was last revised on 2017. Blood 05/08/2024 1:10 PM RUBBER PRESS OPERATOR 05/08/2024 1:20 PM RUBBER PRESS OPERATOR us Heavenly Stratton DO LAB BLOOD ORDERABLES Final Res ult RAY [address] [place] [address] * Infection Prevention MRSA Only (Staphylococcus aureus) PCR Nasal (05/08/2024 1:10 PM RUBBER PRESS OPERATOR) [facility] PCR Scrn, Methicillin resistant Staphylococcus aureus (MRSA) Not Detected Not Detected Comment: Interpretive Data Testing performed using Nucleic Acid Amplification with the [employer] Xpert MRSA NxG Assay. This assay detects target DNA from mecA, mecC and the SCCmec insertion site of Staphylococcus aureus using Real-Time PCR and has been cleared by the FDA. Performance characteristics have been verified by the [facility]. Current Interpretive Data was last revised on 2023 Nasal 05/08/2024 1:10 PM RUBBER PRESS OPERATOR 05/08/2024 1:20 PM RUBBER PRESS OPERATOR us Heavenly Stratton DO LAB MICROBIOLOGY - GENERAL ORD ERABLES Final Result Performing Organization Address [facility] Co de Phone Number [address]AY[address] [address] * CBC with auto differential (05/08/2024 1:10 PM RUBBER PRESS OPERATOR) [facility] WBC 6.9 3.8 - 9.9 K/cumm Hgb 13.0 11.9 - 15.5 g/dL [facility] Hct 40.1 35.6 - 45.5 % [facility] Plt 318 150 - 400 K/cumm [facility] MPV 10.3 9.1 - 12.3 fL [facility] RBC 4.23 3.90 - 5.20 M/cumm [facility] MCV 94.8 81.3 - 96.4 fL [facility] MCH 30.7 27.1 - 33.3 pg [facility] MCHC 32.4 32.3 - 35.7 g/dL [facility] RDW CV 13.5 11.1 - 14.9 % [facility] RDW SD 47.1 35.7 - 48.1 fL [facility] NRBC abs 0.00 0.00 - 0.01 K/cumm [facility] Blood 05/08/2024 1:10 PM RUBBER PRESS OPERATOR 05/08/2024 1:20 PM RUBBER PRESS OPERATOR [facility] BLOOD ORDERABLES Final Res ult Performing Organization Address [facility] de Phone Number RAY [address] [address] * ABO/Rh (05/08/2024 1:10 PM RUBBER PRESS OPERATOR) Pathologist [facility] ABO/Rh O Positive Blood 05/08/2024 1:10 PM RUBBER PRESS OPERATOR 05/08/2024 1:20 PM RUBBER PRESS OPERATOR Narrative [facility] - 05/08/2024 2:00 PM RUBBER PRESS OPERATOR Is this test being ordered in advance for a procedure?->Yes Expected date of procedure:->05/22/24 Has the patient been transfused in the past 3 months?->No Has the patient been in the past 3 months?->No [facility] BLOOD BANK TEST ORDERABLES Final Result Performing Organization Address [facility] de Phone Number RAY [address] [address] * (ABNORMAL) Nicotine metabolite screen, urine (05/08/2024 1:10 PM RUBBER PRESS OPERATOR) [facility] Nicotine, ur <5.0 <5.0 ng/mL [facility] Cotinine, ur 85(H) <5.0 ng/mL [facility] Anabasine ur <2.0 <2.0 ng/mL [facility] Comment: ADDITIONAL INFORMATION This test was developed and its performance characteristics determined by [facility] in a manner consistent with CLIA requirements. This test has not been cleared or approved by the U.S. Food and Drug Administration. Test Performed by: [facility] [address] [place] [id number] Pocket Assembler: Arnaud Celaya Ph.D.; CLIA# [id number] Nornicotine, ur <2.0 <2.0 ng/mL RAY Urine 05/08/2024 1:10 PM RUBBER PRESS OPERATOR 05/08/2024 1:20 PM RUBBER PRESS OPERATOR [facility] LAB URINE ORDERABLES Final Res ult Performing Organization Address [facility] de Phone Number [address] [address] [facility] * Protime-INR (05/08/2024 1:10 PM RUBBER PRESS OPERATOR) PT 14.1 12.0 - 14.6 sec INR 1.1 0.9 - 1.2 RAY Comment: Ref Range High Interpretive data Oral anticoagulant therapeutic ranges: Venous thromboembolism prophylaxis or treatment: 2.0-3.0 CARDIOLOGY Standard range: 2.0-3.0 High-intensity range: 2.5-3.5 Refer to indication-specific guidelines for appropriate target ranges for prosthetic heart valve replacement. Current interpretive data was last revised on 2019. Blood 05/08/2024 1:10 PM RUBBER PRESS OPERATOR 05/08/2024 1:20 PM RUBBER PRESS OPERATOR [facility] LAB BLOOD ORDERABLES Final Res ult Performing Organization Address [facility] de Phone Number [address] [address] * Antibody screen (05/08/2024 1:10 PM RUBBER PRESS OPERATOR) Cody, indirect, Gel Interpretation Negative ABSC Blood 05/08/2024 1:10 PM RUBBER PRESS OPERATOR 05/08/2024 1:20 PM RUBBER PRESS OPERATOR Narrative [facility] 05/08/[facility]24 2:00 PM RUBBER PRESS OPERATOR Is this test being ordered in advance for a procedure?->Yes Expected date of procedure:->05/22/24 Has the patient been transfused in the past 3 months?->No Has the patient been in the past 3 months?->No [facility] DO LAB BLOOD BANK TEST ORDERABLES Final Result Performing Organization Address City/[facility]/ZIP Co de Phone Number RAY [address] [place] [address] * Comprehensive metabolic panel (05/08/2024 1:10 PM RUBBER PRESS OPERATOR) Sodium 137 135 - 145 mmol/L Potassium, pl 4.1 3.3 - 4.9 mmol/L [facility] Chloride 104 97 - 110 mmol/L [facility] CO2 24 22 - 32 mmol/L [facility] Anion gap 9 2 - 15 mmol/L [facility] BUN 18 6 - 25 mg/dL [facility] Creatinine 0.70 0.60 - 1.10 mg/dL [facility] Glucose 97 70 - 199 mg/dL [facility] Comment: Interpretive Data Fasting glucose >/= 126 mg/dl is diagnostic for diabetes. Fasting is defined as no caloric intake for at least 8 hours. Fasting glucose between 100 mg/dl to 125 mg/dl is diagnostic of prediabetes. In a patient with classic symptoms of hyperglycemia or hyperglycemic crisis, a random glucose >/= 200 mg/dl is diagnostic for diabetes. In the absence of unequivocal hyperglycemia, results should be confirmed by repeat testing. The classification and Diagnosis of Diabetes Diabetes Care 202; 46: S19-S40. Current interpretive data was last revised 2022. Calcium 10.2 8.5 - 10.3 mg/dL [facility] Bilirubin, total 0.8 0.1 - 1.2 mg/dL [facility] Protein, pl 6.9 6.5 - 8.5 g/dL [facility] Albumin 4.4 3.5 - 5.0 g/dL [facility] Alk phos 43 40 - 130 Units/L [facility] ALT 19 7 - 45 Units/L [facility] AST 25 10 - 45 Units/L [facility] Blood 05/08/2024 1:10 PM RUBBER PRESS OPERATOR 05/08/2024 1:20 PM RUBBER PRESS OPERATOR [facility] DO LAB BLOOD ORDERABLES Final Res ult RAY [address] [place] [address] * Pap and High Risk HPV and Genotyping (Cytology Component) (05/31/2023 11:17 AM RUBBER PRESS OPERATOR) Thin prep (Pap test) 05/31/2023 11:17 AM RUBBER PRESS OPERATOR 05/31/2023 7:41 PM RUBBER PRESS OPERATOR Narrative PATHOLOGY [facility] - 06/07/2023 7:14 AM RUBBER PRESS OPERATOR EPIC results best viewed via link to PDF [facility] Krysten Rangel [facility] [place] [address] Note to Patients: This report may contain a detailed description of human tissue sent by a health care provider to the laboratory for pathologic evaluation. The content of this report is essential for diagnosis and may provide important critical findings. This information may be unfamiliar to patients to review without a medical professional present. It is advised that the patient review this report in the presence of a health care provider who can answer questions and explain the details. CYTOPATHOLOGY REPORT FINAL Patient Name: JULIETH ABRAMS Gender: F : 1965 (Age: 57) Address: [address] [place], [place] [id number] Hospital #: [id number] Service: DEFAULT Location: Patient Type: [facility] SPECIMEN Taken: 05/31/2023 Received: 05/31/2023 Accessioned: 06/01/2023 Reported: 06/07/2023 Physician(s): Cassidy Gutierrez M.D. FINAL INTERPRETATION SOURCE OF SPECIMEN Liquid based Thin Prep pap with HPV: STATEMENT OF ADEQUACY - Satisfactory for evaluation - No endocervical/transformation zone sample present in a post menopausal patient GENERAL CATEGORIZATION: - Negative for squamous intraepithelial lesion or malignancy Comments (Normal-Negative for High Risk HPV) HPV HR 16- Not detected HPV HR 18-Not detected HPV HR non 16/18- Not detected Interpretive Data Nucleic acid amplification for detection of high-risk Human Papilloma virus (HPV) is performed by the Ran Brea 6800 HPV test. This assay specifically detects HPV- 16 and HPV-18 genotypes. The following HPV genotypes are detected as high-risk HPV: HPV-31, 33, 35, 39, 45, 51, 52, 56, 58, 59, 66, and 68. This assay has been approved by the [place] Food and Drug Administration for detection of HPV in cervical specimens collected by a physician using an endocervical brush/spatula or cervical broom and placed in the ThinPrep Pap Test PreservCyt collection containers. The performance characteristics of this test have been verified by the [facility] Molecular Infectious Disease laboratory. Correlate with reported cytology results, as applicable. Interpretive data last revised 22 This specimen has been rescreened in accordance with this laboratory's Marking Devices Assembler Program. [facility] [place]/06/07/2023 07:14 KB Meehan(ASCP) Report Electronically Reviewed and Signed Out By MARY KATE Jim (ASCP) 06/07/2023 07:14:29 Cervicovaginal Cytology (Pap Test) Disclaimer: The Pap test is a screening test used to detect cervical cancer and its precursors; it is not a diagnostic procedure. False negative and false positive results do occur. Pap test results should be interpreted in the context of pertinent clinical information and biopsy results as indicated. [facility] Clinical Laboratory Improvement Amendments (CLIA) mandate that cytologic and histologic results be correlated for laboratory quality systems manager & improvement standards. FOR ALL HIGH-GRADE CASES we request submission of follow-up histological material and/or reports that have not been previously provided so that we may fulfill said required standards. Gross Description A. Liquid based Thin Prep pap with HPV: Cervical/vaginal - Screening ThinPrep Clinical Diagnosis and History Last Menstrual Period: postmenopausal The patient is a 57 year old female with screening pap. Report Images and scanned documents, if included only viewable in PDF version The performance characteristics of some immunohistochemical stains, in-situ hybridization and fluorescence in-situ hybridization tests and immunophenotyping by flow cytometry cited in this report (if any) were determined by the Surgical Pathology Department at [facility] as part of an ongoing quality improvement coordinator program and in compliance with federally mandated regulations drawn from the Clinical Laboratory Improvement Act of 1988 (CLIA '88). Some of these tests rely on the use of analyte specific reagents and are subject to specific labeling requirements by the US Food and Drug Administration. Such diagnostic tests may only be performed in a facility that is certified by the Department of Health and Human Services as a high complexity laboratory under CLIA '88. The FDA has determined that such clearance or approval is not necessary. This test is used for clinical purposes. It should not be regarded as investigational or for research. Nevertheless, federal rules concerning the medical use of analyte specific reagents require that the following disclaimer be attached to the report: This test was developed and its performance characteristics determined by the Surgical Pathology Department of [facility]. It has not been cleared or approved by the U. S. Food and Drug Administration. Cassidy Gutierrez MD LAB CYTOLOGY ORDERABLES F inal Result PATHOLOGY [facility] * (ABNORMAL) Screening Mammogram Bilateral W Rafael (02/09/2023 2:24 PM CDT) Anatomical Region Laterality Modality Breast Bilateral Mammography Impressions 02/11/2023 10:13 AM CDT BI-RADS ATLAS category (overall): 0 - Incomplete: Needs Additional Imaging Evaluation 1. Indeterminate left breast finding as detailed above. Further evaluation with diagnostic left mammography and possible diagnostic left breast ultrasound is recommended. 2. No mammographic evidence of malignancy in the right breast. Routine screening mammography of the right breast is recommended in 1 year. The patient has been or will be contacted. Narrative 02/11/2023 10:13 AM CDT Screening Mammogram Bilateral W Rafael: 02/09/23 The study was acquired using full field digital technology and interpreted from soft copy. 2D digital mammographic views, as well as 3D digital tomosynthesis were performed in the CC and MLO projections. CLINICAL: Encounter for screening mammogram for malignant neoplasm of breast. No relevant medical history has been documented for this patient. No known family history of breast cancer. COMPARISONS: 06/30/2021 Breast Imaging Screening Outside Reference 01/13/2018 Breast Imaging Screening Outside Reference 08/21/2016 Breast Imaging Screening Outside Reference BREAST TISSUE: The breasts are heterogeneously dense, which may obscure small masses. FINDINGS: There are benign calcifications in both breasts. There are benign calcifications in both breasts. There is an asymmetry with possible architectural distortion in the upper left breast, posterior depth, on the MLO view. There is no other suspicious finding in either breast on mammogram. Dulce Curtis NP IMG MAMMO PROCEDURES Final Re sult from Last 3 Months or Most Recently Relevant to Health Maintenance Insurance [facility] H[facility] [place] [address] Advance Directives For more information, please contact: [phone] * Full Code (Latest Code Status on File) Date Activated Date Inactivated Comments 05/22/2024 4:57 PM 05/25/2024 3:22 PM Care Teams Water Superintendent Relationship Specialty Start Date End Date Norma Orozco MD [address] [place] [address] [phone] PCP - General Internal Medicine 04/03/24 Cassidy Gutierrez MD [address] [place] [address] [phone] Inner Tube Cutter Obstetrics and Gynecology 05/08/24 Arthur Dockery MD [address] [facility] [address] [place] [address] Consulting Physician Urology 05/08/24 Heavenly Stratton DO [address] [place] [address] [place] [address] Consulting Physician Orthopedic Surgery 05/23/24
--- OUTSIDE RECORDS SUMMARY | 2024-06-14 15:17 | XMS_ITS | Clinical Summary ---
Author Organization [facility] Address [address] [place] [address] Care Team Providers Care Dust Mop Maker Name Role Phone Norma Orozco MD Primary Care Provider Source Comments [facility],non-owned Affiliates and Associated Physician Practices is amultiple site organization consisting of ambulatory clinics and hospital sitesin [place], [place], [place] and [place]. This disclosure is being madepursuant to the Care Everywhere program and may not contain all information available regarding this patient. Last updated 18.[facility] Allergies No known active allergies Medications Be [...] 12/10/2019 Cholecystitis 11/26/2019 Pulmonary nodule 11/26/2019 Overview (01/23/2020): 5.3 cm nodule right lung base Herpes labialis 08/16/2016 Irritable bowel syndrome (IBS) 08/16/2016 Meniere's disease 08/16/2016 Nephrolithiasis 08/16/2016 Thyroid cyst 07/25/2016 Overview (01/23/2020): small cyst seen on US 08/10 has FH of MEN2 Immunizations Name Administration Dates Next Due TDAP (7yrs+) 12/10/2019(Deferred: See Comment s - given today at [facility]) Social History Tobacco Use Types Packs/Day Years [...] Comments Blood Pressure 127/82 02/26/2020 1:16 PM MASON TENDER Pulse 83 02/26/2020 1:16 PM MASON TENDER Temperature 36.3 C (97.4 F) 01/23/2020 9:57 AM CDT Respiratory Rate 16 01/23/2020 9:57 AM CDT Oxygen Saturation 99% 01/23/2020 9:57 AM CDT Inhaled Oxygen Concentration - - Weight 84.6 kg (186 lb 9.6 oz) 01/23/2020 9:57 A M CDT Height 167.6 cm (5' 6 ) 02/26/2020 1:16 PM MASON TENDER Body Mass Index 30.12 01/23/2020 9:57 AM CDT Plan of Treatment Health Maintenance Due Date Last Done Comments COLOGUARD (AGES 45-75) - COLON CA SCREENING 1965 COLON MONITORING 1965 COLONOSCOPY - COLON CA SCREENING 1965 CT COLONOGRAPHY - COLON CA SCREENING 1965 Colorectal Cancer Screening 1965 FIT - COLON CA SCREENING 1965 FLEX SIG - COLON CA SCREENING 1965 LIPID TESTING 1965 MAMMOGRAM 1965 PAP SMEAR 1965 HIV SCREENING 10/07/1982 HEPATITIS C SCREENING 10/03/1985 DTAP/TDAP/TD VACCINES (1 - Tdap) 10/07/1986 HEPATITIS B VACCINE (1 of 3 - 19+ 3-dose series) 10/07/1986 PNEUMOCOCCAL VACCINE 50+ (1 of 1 - PCV) 10/07/2017 ZOSTER VACCINE (1 of 2) 10/07/2017 SCREENING FOR DIABETES 12/13/2022 0, 12/13/2019, 12/12/2019, Additional history exists COVID-19 VACCINE ( - 2023- season) 2023 INFLUENZA VACCINE (#1) 2023 01/16/2019, 2017 DEPRESSION SCREENING 04/26/2024 HIB VACCINE Aged Out No longer eligi ble based on patient's age to complete this topic HPV VACCINE Aged Out No longer eligi ble based on patient's age to complete this topic MENINGOCOCCAL (Group B) VACCINE Aged Out No longer eligible based on patient's age to complete this topic MENINGOCOCCAL VACCINE Aged Out No kateryna jeronimo eligible based on patient's age to complete this topic Procedures Procedure Name Priority Date/Time Associated Diagnosis Comments BASIC METABOLIC PANEL (CALCIUM TOTAL) AM Draw 12/14/2019 2:20 AM CDT from Last 3 Months or Most Recently Relevant to Health Maintenance Results * BASIC METABOLIC PANEL (CALCIUM TOTAL) (12/14/2019 2:20 AM CDT) BUN 15 7 - 26 mg/dL 12/14/2019 2:59 AM [facility] Creatinine 0.8 0.6 - 1.2 mg/dL 12/14/2019 2:59 AM [facility] Sodium 140 136 - 145 mmol/L 12/14/2019 2:59 AM [facility] Potassium 3.9 3.5 - 4.5 mmol/L 12/14/2019 2:59 AM [facility] Chloride 104 98 - 107 mmol/L 12/14/2019 2:59 AM [facility] CO2 27 22 - 29 mmol/L 12/14/2019 2:59 AM [facility] Glucose 97 70 - 115 mg/dL 12/14/2019 2:59 AM [facility] Calcium 9.0 8.4 - 10.2 mg/dL 12/14/2019 2:59 AM [facility] Anion Gap 13 8 - 18 12/14/2019 2:59 AM T [facility] BUN/Creatinine Ratio 19 7 - 23 12/14/2019 2:59 AM T [facility] Osmolality Calculated 291 270 - 300 mOsm/kg 12/14/2019 2:59 AM CDT [facility] eGFR >60 >60 mL/min/1.7 3 m2 12/14/2019 2:59 AM T [facility] Blood BLOOD SPECIMEN / Unknown Lab Venipuncture / Unknown 12/14/2019 2:20 AM CDT 12/14/2019 2:36 AM CDT Dany Avery MD LAB - CHEMISTRY RODRICK ZUÑIGA [facility] Organization Address City/State/ZIP Co de Phone Number [facility] [address] [place] [phone], [facility] [phone] from Last 3 Months or Most Recently Relevant to Health Maintenance Advance Directives * Full Code (Latest Code Status on File) Date Activated Date Inactivated Comments 12/10/2019 6:54 AM 12/14/2019 5:44 PM * Full Code Date Activated Date Inactivated Comments 12/10/2019 6:37 AM 12/10/2019 6:54 AM Care Teams Dust Mop Maker Relationship Specialty Start Date End Date Norma Orozco MD PCP - General Internal Medicine 02/26/20
--- OUTSIDE RECORDS SUMMARY | 2024-06-14 15:17 | XMS_ITS | Referral Summary ---
Author Organization [facility] Address [address] [place] [address] Care Team Providers Care Fashion Coordinator Name Role Phone Norma Orozco MD Primary Care Provider Source Comments [facility],non-owned Affiliates and Associated Physician Practices is amultiple site organization consisting of ambulatory clinics and hospital sitesin [place], [place], [place] and [place]. This disclosure is being madepursuant to the Care Everywhere program and may not contain all information available regarding this patient. Last updated 18.[facility] Allergies No known active allergies Medications Be [...] Comments Blood Pressure 127/82 02/26/2020 1:16 PM [facility] Pulse 83 02/26/2020 1:16 PM [facility] Temperature 36.3 C (97.4 F) 01/23/2020 9:57 AM CDT Respiratory Rate 16 01/23/2020 9:57 AM CDT Oxygen Saturation 99% 01/23/2020 9:57 AM CDT Inhaled Oxygen Concentration - - Weight 84.6 kg (186 lb 9.6 oz) 01/23/2020 9:57 A M CDT Height 167.6 cm (5' 6 ) 02/26/2020 1:16 PM [facility] Body Mass Index 30.12 01/23/2020 9:57 AM CDT Functional Status Functional Status Response Date of Assess ment Is person deaf or have serious hearing difficult y? No 12/10/2019 Is person blind or have serious difficulty seein g? No 12/10/2019 Does person have serious dif ficulty walking/climbing stairs? No 12/10/2019 Does person have difficulty dressing/bathing? No 12/10/2019 Does person have difficulty doing errands alone? No 12/10/2019 Cognitive Status Response Date of Assessm ent Does person have difficulty concentrating/remembering/making decisions? No 12/10/2019 Plan of Treatment Not on file Procedures Procedure Name Priority Date/Time Associated Diagnosis Comments BASIC METABOLIC PANEL (CALCIUM TOTAL) AM Draw 12/14/2019 2:20 AM CDT from Last 3 Months or Most Recently Relevant to Health Maintenance Results * BASIC METABOLIC PANEL (CALCIUM TOTAL) (12/14/2019 2:20 AM CDT) BUN 15 7 - 26 mg/dL 12/14/2019 2:59 AM CDT [facility] Creatinine 0.8 0.6 - 1.2 mg/dL 12/14/2019 2:59 AM CDT [facility] Sodium 140 136 - 145 mmol/L 12/14/2019 2:59 AM CDT [facility] Potassium 3.9 3.5 - 4.5 mmol/L 12/14/2019 2:59 AM [facility] Chloride 104 98 - 107 mmol/L 12/14/2019 2:59 AM T [facility] CO2 27 22 - 29 mmol/L 12/14/2019 2:59 AM CDT [facility] Glucose 97 70 - 115 mg/dL 12/14/2019 2:59 AM T [facility] Calcium 9.0 8.4 - 10.2 mg/dL 12/14/2019 2:59 AM T [facility] Anion Gap 13 8 - 18 12/14/2019 2:59 AM [facility] BUN/Creatinine Ratio 19 7 - 23 12/14/2019 2:59 AM [facility] Osmolality Calculated 291 270 - 300 mOsm/kg 12/14/2019 2:59 AM [facility] eGFR >60 >60 mL/min/1.7 3 m2 12/14/2019 2:59 AM T [facility] Blood BLOOD SPECIMEN / Unknown Lab Venipuncture / Unknown 12/14/2019 2:20 AM CDT 12/14/2019 2:36 AM CDT Dayn Avery MD LAB - CHEMISTRY [facility]ODR[facility] Organization Address City/State/ZIP Co de Phone Number [address] [id number], [facility] [phone] from Last 3 Months or Most Recently Relevant to Health Maintenance Advance Directives * Full Code (Latest Code Status on File) Date Activated Date Inactivated Comments 12/10/2019 6:54 AM 12/14/2019 5:44 PM * Full Code Date Activated Date Inactivated Comments 12/10/2019 6:37 AM 12/10/2019 6:54 AM Care Teams Fashion Coordinator Relationship Specialty Start Date End Date Norma Orozco MD PCP - General Internal Medicine 02/26/20
--- OUTSIDE RECORDS SUMMARY | 2024-06-14 15:17 | XMS_ITS | Referral Summary ---
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 [address] Liam GARCIA IMG XR PROCEDURES Final Result * FL Fluoroscopy < 1 Hour (05/22/2024 1:30 PM PIN MAKER) Narrative BARBIE_KJ_HELGA_MHE - 05/22/2024 1:31 PM PIN MAKER The images from this study are not interpreted by Radiology. Please refer to the physician's procedure / OR operative note. Heavenly Stratton DO IMG FLUOROSCOPY PROCEDURES Fin al Result RAD_CLARIO_MHB_MHE * OH AN ELECTIVE ENDOTRACHEAL AIRWAY, OH AN PROCEDURE PLACEHOLDER (05/22/2024 12:18 PM PIN MAKER) Narrative Susan Bob MD - 05/22/2024 12:18 PM PIN MAKER Susan Bob MD 05/22/2024 12:18 PM Airway [...] CO2 detection Airway secured with: silk tape us Susan Bob MD ANESTHESIA ORDERABLES Final Result * ABO / Rh Confirmation Testing (05/22/2024 9:44 AM PIN MAKER) ABO/Rh Confirmation O Positive [facility] Blood 05/22/2024 9:44 AM PIN MAKER 05/22/2024 9:47 AM PIN MAKER us Heavenly Stratton DO LAB BLOOD ORDERABLES Final Res ult CERNER [address] [facility] Department [place] [address] [facility] * ECG 12 lead (05/08/2024 1:20 PM PIN MAKER) Ventricular Rate EKG/Min 53 BPM [facility] Atrial Rate 53 BPM [facility] OH-Interval (MSEC) 148 ms [facility] QRS-Interval (MSEC) 78 ms [facility] QT-Interval (MSEC) 446 ms [facility] QTc 418 ms [facility] P [place] 63 degrees [facility] R [place] 21 degrees [facility] T [place] 12 degrees [facility] Diagnosis Sinus bradycardia Otherwise normal ECG When compared with ECG of 24-FEB-2019 08:48, No significant change was found Confirmed by BALWINDER ESTRADA M.D. ([id number]) on 05/08/2024 9:40:53 PM [facility] 05/08/2024 1:20 PM PIN MAKER 05/08/2024 9:40 PM PIN MAKER Jany Ferguson TAXICAB STARTER ECG ORDERABLES Cesia l Result [facility] * eGFR (05/08/2024 1:10 PM PIN MAKER) eGFR >90 >=60 mL/min/1. 73 m2 Comment: [...] last reviewed 2021. Blood 05/08/2024 1:10 PM PIN MAKER 05/08/2024 1:20 PM PIN MAKER Heavenly Stratton DO LAB BLOOD ORDERABLES Final Res ult RAY [address] [facility] [place] [address] * Differential, auto (05/08/2024 1:10 PM PIN MAKER) Neutrophil abs 4.4 1.5 - 6.5 K/cumm Imm gran abs 0.0 0.0 - 0.1 K/cumm CERNER Lymphocyte abs 2.0 0.8 - 3.3 K/cumm [facility] Monocyte abs 0.4 0.2 - 0.8 K/cumm [facility] Eosinophil abs 0.1 0.0 - 0.5 K/cumm [facility] Basophil abs 0.0 0.0 - 0.1 K/cumm [facility] Neutrophil pct 63.9 % [facility] Comment: Interpretive Data Percent cell count reference ranges are not reported, since discordance with absolute values may lead to misinterpretation of CBC data. Current Interpretive Data was last revised on 2017. Imm gran pct 0.4 % [facility] Comment: Interpretive Data Percent cell count reference ranges are not reported, since discordance with absolute values may lead to misinterpretation of CBC data. Current Interpretive Data was last revised on 2017. Lymphocyte pct 29.0 % [facility] Comment: Interpretive Data Percent cell count reference ranges are not reported, since discordance with absolute values may lead to misinterpretation of CBC data. Current Interpretive Data was last revised on 2017. Monocyte pct 5.4 % [facility] Comment: Interpretive Data Percent cell count reference ranges are not reported, since discordance with absolute values may lead to misinterpretation of CBC data. Current Interpretive Data was last revised on 2017. Eosinophil pct 0.7 % [facility] Comment: Interpretive Data Percent cell count reference ranges are not reported, since discordance with absolute values may lead to misinterpretation of CBC data. Current Interpretive Data was last revised on 2017. Basophil pct 0.6 % [facility] Comment: Interpretive Data Percent cell count reference ranges are not reported, since discordance with absolute values may lead to misinterpretation of CBC data. Current Interpretive Data was last revised on 2017. Blood 05/08/2024 1:10 PM PIN MAKER 05/08/2024 1:20 PM PIN MAKER us Heavenly Stratton DO LAB BLOOD ORDERABLES Final Res ult RAY SPRINGER [address] [facility] Department [place] [address] * Infection Prevention MRSA Only (Staphylococcus aureus) PCR Nasal (05/08/2024 1:10 PM PIN MAKER) PCR Scrn, Methicillin resistant Staphylococcus aureus (MRSA) Not Detected Not Detected Comment: Interpretive Data Testing performed using Nucleic Acid Amplification with the CounterStorm Xpert MRSA NxG Assay. This assay detects target DNA from mecA, mecC and the SCCmec insertion site of Staphylococcus aureus using Real-Time PCR and has been cleared by the FDA. Performance characteristics have been verified by the [facility]. Current Interpretive Data was last revised on 2023 Nasal 05/08/2024 1:10 PM PIN MAKER 05/08/2024 1:20 PM PIN MAKER Open English LAB MICROBIOLOGY - GENERAL ORD ERABLES Final Result Performing Organization Address City/[facility]/ZIP Co de Phone Number RAY [address] [facility] [employer] [place] [address] * CBC with auto differential (05/08/2024 1:10 PM PIN MAKER) Pathologist [facility] WBC 6.9 3.8 - 9.9 K/cumm Hgb 13.0 11.9 - 15.5 g/dL [facility] Hct 40.1 35.6 - 45.5 % [facility] Plt 318 150 - 400 K/cumm [facility] MPV 10.3 9.1 - 12.3 fL [facility] RBC 4.23 3.90 - 5.20 M/cumm [facility] MCV 94.8 81.3 - 96.4 fL [facility] MCH 30.7 27.1 - 33.3 pg [facility] MCHC 32.4 32.3 - 35.7 g/dL [facility] RDW CV 13.5 11.1 - 14.9 % [facility] RDW SD 47.1 35.7 - 48.1 fL [facility] NRBC abs 0.00 0.00 - 0.01 K/cumm [facility] Blood 05/08/2024 1:10 PM PIN MAKER 05/08/2024 1:20 PM PIN MAKER [employer] LAB BLOOD ORDERABLES Final Res ult Performing Organization Address City/[facility]/ZIP Co de Phone Number [address] [address] * ABO/Rh (05/08/2024 1:10 PM PIN MAKER) Pathologist [facility] ABO/Rh O Positive Blood 05/08/2024 1:10 PM PIN MAKER 05/08/2024 1:20 PM PIN MAKER Narrative [facility] - 05/08/2024 2:00 PM PIN MAKER Is this test being ordered in advance for a procedure?->Yes Expected date of procedure:->05/22/24 Has the patient been transfused in the past 3 months?->No Has the patient been in the past 3 months?->No Heavenly Stratton DO LAB BLOOD BANK TEST ORDERABLES Final Result [address] [address] * (ABNORMAL) Nicotine metabolite screen, urine (05/08/2024 1:10 PM PIN MAKER) [facility] Nicotine, ur <5.0 <5.0 ng/mL [facility] Cotinine, ur 85(H) <5.0 ng/mL [facility] Anabasine ur <2.0 <2.0 ng/mL [facility] Comment: ADDITIONAL INFORMATION This test was developed and its performance characteristics determined by [facility] in a manner consistent with CLIA requirements. This test has not been cleared or approved by the U.S. Food and Drug Administration. Test Performed by: [facility] [address] [place] [address] Compliance Manager: Arnaud Celaya Ph.D.; CLIA# [id number] Nornicotine, ur <2.0 <2.0 ng/mL [facility] Urine 05/08/2024 1:10 PM PIN MAKER 05/08/2024 1:20 PM PIN MAKER us [employer] LAB URINE ORDERABLES Final Res ult Performing Organization Address [facility] Co de Phone Number TAYLOR[address] [place] [address] [facility] * Protime-INR (05/08/2024 1:10 PM PIN MAKER) PT 14.1 12.0 - 14.6 sec INR 1.1 0.9 - 1.2 RAY Comment: Ref Range High Interpretive data Oral anticoagulant therapeutic ranges: Venous thromboembolism prophylaxis or treatment: 2.0-3.0 CARDIOLOGY Standard range: 2.0-3.0 High-intensity range: 2.5-3.5 Refer to indication-specific guidelines for appropriate target ranges for prosthetic heart valve replacement. Current interpretive data was last revised on 2019. Blood 05/08/2024 1:10 PM PIN MAKER 05/08/2024 1:20 PM PIN MAKER [employer] LAB BLOOD ORDERABLES Final Res ult Performing Organization Address [facility] de Phone Number [address] [place] [address] * Antibody screen (05/08/2024 1:10 PM PIN MAKER) Cody, indirect, Gel Interpretation Negative ABSC Blood 05/08/2024 1:10 PM PIN MAKER 05/08/2024 1:20 PM PIN MAKER Narrative [facility] - 05/08/2024 2:00 PM PIN MAKER Is this test being ordered in advance for a procedure?->Yes Expected date of procedure:->05/22/24 Has the patient been transfused in the past 3 months?->No Has the patient been in the past 3 months?->No [employer] [facility] BLOOD BANK TEST ORDERABLES Final Result Performing Organization Address [facility] Co de Phone Number [place] [address] [facility] [place] [address] * Comprehensive metabolic panel (05/08/2024 1:10 PM PIN MAKER) Sodium 137 135 - 145 mmol/L Potassium, pl 4.1 3.3 - 4.9 mmol/L [facility] Chloride 104 97 - 110 mmol/L [facility] CO2 24 22 - 32 mmol/L [facility] Anion gap 9 2 - 15 mmol/L [facility] BUN 18 6 - 25 mg/dL [facility] Creatinine 0.70 0.60 - 1.10 mg/dL [facility] Glucose 97 70 - 199 mg/dL [facility] Comment: Interpretive Data Fasting glucose >/= [...] classification and Diagnosis of Diabetes Diabetes Care 2021; 46: S19-S40. Current interpretive data was last revised 2022. Calcium 10.2 8.5 - 10.3 mg/dL [facility] Bilirubin, total 0.8 0.1 - 1.2 mg/dL [facility] Protein, pl 6.9 6.5 - 8.5 g/dL [facility] Albumin 4.4 3.5 - 5.0 g/dL [facility] Alk phos 43 40 - 130 Units/L [facility] ALT 19 7 - 45 Units/L [facility] AST 25 10 - 45 Units/L [facility] Blood 05/08/2024 1:10 PM PIN MAKER 05/08/2024 1:20 PM PIN MAKER us Heavenly Stratton DO LAB BLOOD ORDERABLES Final Res ult RAY [address] [facility] [place] [address] * Pap and High Risk HPV and Genotyping (Cytology Component) (05/31/2023 11:17 AM PIN MAKER) Thin prep (Pap test) 05/31/2023 11:17 AM PIN MAKER 05/31/2023 7:41 PM PIN MAKER Narrative PATHOLOGY [facility] - 06/07/2023 7:14 AM PIN MAKER EPIC results best viewed via link to PDF [facility] [place] [address] Note to Patients: This report may contain [...] Gender: F : 1965 (Age: 57) Address: [address] [place], [place] [id number] [id number] Service: DEFAULT Location: Patient Type: [facility] SPECIMEN Taken: 05/31/2023 Received: 05/31/2023 [...] this test have been verified by the [facility] Molecular Infectious Disease laboratory. Correlate with reported cytology results, as applicable. Interpretive data last revised 22 This specimen has been rescreened in accordance with this laboratory's Hay Chopper Program. [facility]/06/07/2023 07:14 KB Meeahn(ASCP) Report Electronically Reviewed and Signed Out By [...] clinical information and biopsy results as indicated. [facility] Clinical Laboratory Improvement Amendments (CLIA) mandate that cytologic and histologic results be correlated for laboratory senior quality engineer & improvement standards. FOR ALL HIGH-GRADE CASES [...] determined by the Surgical Pathology Department at [facility] as part of an ongoing food quality technician program and in compliance with federally mandated [...] determined by the Surgical Pathology Department of [facility]. It has not been cleared or approved by the U. S. Food and Drug Administration. Cassidy Gutierrez MD LAB CYTOLOGY ORDERABLES F inal Result PATHOLOGY [facility] * (ABNORMAL) Screening Mammogram Bilateral W [...] Most Recently Relevant to Health Maintenance Insurance [facility] HMO/PPO Address: [address] [place] [address] [facility] CHOICE PLUS [facility] HMO [facility] CHOICE PLUS Advance Directives For more information, please contact: [phone] * Full Code (Latest Code Status on File) Date Activated Date Inactivated Comments 05/22/2024 4:57 PM 05/25/2024 3:22 PM Care Teams Log Cutter Relationship Specialty Start Date End Date Norma Orozco MD [address] [place] [address] [address] [place], [place] [phone] PCP - General Internal Medicine 04/03/24 Cassidy Gutierrez MD [address] [place] [id number] Clinical Partner Obstetrics and Gynecology 05/08/24 Arthur Dockery MD [address] [place] [address] Consulting Physician Urology 05/08/24 Heavenly Stratton DO [address] [facility] [place] [address] Consulting Physician Orthopedic Surgery 05/23/24
== END 2024-06-14 15:07 | disposition home or self-care (01) ==
PROVIDERS: PCP Internal Medicine; Visit Provider Urology
DX: N20.0 Calculus of kidney (principal)
CPT/HCPCS: 74018

== ENCOUNTER 2024-06-20 09:28 | Outpatient (CLI) | payer OTHER, SELFPAY ==
[2024-06-20 10:13] LABS: INR 0.9
[2024-06-20 10:14] LABS: Partial Thromboplastin Time 25.6 Seconds (22.3-36.8)
--- OUTSIDE RECORDS SUMMARY | 2024-06-20 10:32 | XMS_ITS | Encounter Summary ---
Author Organization [facility] Healthcare Address [address] [place] [address] Care Team Providers Care Data Reporting Analyst Name Role Phone Norma Orozco MD Primary Care Provider Cassidy Gutierrez MD Unavailable [phone] Arthur Dockery MD Unavailable [phone] Heavenly Stratton DO Unavailable [phone] Encounter Details Date Type Department Care Team (Late st Contact Info) Description 06/14/2024 Orders Only [facility] Health Information Management [address] [place] [id number] Scanning, Provider Social History Tobacco Use Types Packs/Day Years Used Date Smoking Tobacco: Never Smokeless Tobacco: Never Alcohol Use Standard Drinks/Week Comments Yes 0 (1 standard drink = 0.6 oz pur e alcohol) [facility] Utilities Answer Date Recorded In the past 12 months has [employer] electric, gas, oil, or water company threatened [...] any clubs o r organizations such as hinduism groups, unions, fraternal or athletic groups, or [...] any time in the past 12 m [facility], were you homeless or living in a alf (including now)? No 05/23/2024 Personal Safety Answer Date Recorded Have you ever been in or are you currently in a harmful physical or emotional relationship or is someone making you feel afraid or unsafe? Denies 05/22/2024 Comments No Sex and Gender Information Value Date Recorded Sex Assigned at Not on file Legal Sex Female 1:15 AM [employer] Gender Identity Not on file Sexual Orientation Not on file documented as of this encounter Plan of Treatment Not on file documented as of this encounter Procedures Procedure Name Priority Date/Time Associated Diagnosis Comments SCAN - RADIOLOGY/IMAGING 06/14/2024 documented in this encounter Results * SCAN - RADIOLOGY/IMAGING (06/14/2024) Anatomical Region Laterality Modality Other us Provider Scanning Final Result documented in this encounter Visit Diagnoses Not on filedocumented in this encounter Care Teams Data Reporting Analyst Relationship Specialty Start Date End Date Norma Orozco MD [address] [place] [id number] PCP - General Internal Medicine 04/03/24 Cassidy Gutierrez MD [address] [place] [address] [employer] Supervisor Obstetrics and Gynecology 05/08/24 Arthur Dockery MD [address] [address] Consulting Physician Urology 05/08/24 Heavenly Stratton DO [address] [facility] [address] [place] [address] [place] [address] Consulting Physician Orthopedic Surgery 05/23/24 documented as of this encounter
--- OUTSIDE RECORDS SUMMARY | 2024-06-20 10:32 | XMS_ITS | Clinical Summary ---
Author Organization [facility] [employer] Address [address] [place] [address] Care Team Providers Care Steam Train Driver Name Role Phone Norma Orozco MD Primary Care Provider Source Comments [facility] [employer],non-owned Affiliates and Associated Physician Practices is amultiple site organization consisting of ambulatory clinics and hospital sitesin [place], [place], [place] and [place]. This disclosure is being madepursuant to the Care Everywhere program and may not contain all information available regarding this patient. Last updated 18.[facility] [employer] Allergies No known active allergies Medications Be [...] Comments Blood Pressure 127/82 02/26/2020 1:16 PM SOFTWARE RELEASE ENGINEER Pulse 83 02/26/2020 1:16 PM SOFTWARE RELEASE ENGINEER Temperature 36.3 C (97.4 F) 01/23/2020 9:57 AM CDT Respiratory Rate 16 01/23/2020 9:57 AM CDT Oxygen Saturation 99% 01/23/2020 9:57 AM CDT Inhaled Oxygen Concentration - - Weight 84.6 kg (186 lb 9.6 oz) 01/23/2020 9:57 A M CDT Height 167.6 cm (5' 6 ) 02/26/2020 1:16 PM SOFTWARE RELEASE ENGINEER Body Mass Index 30.12 01/23/2020 9:57 AM [...] 7 - 26 mg/dL 12/14/2019 2:59 AM [facility] Creatinine 0.8 0.6 - 1.2 mg/dL 12/14/2019 2:59 AM [facility] Sodium 140 136 - 145 mmol/L 12/14/2019 2:59 AM [facility] Potassium 3.9 3.5 - 4.5 mmol/L 12/14/2019 2:59 AM [facility] Chloride 104 98 - 107 mmol/L 12/14/2019 2:59 AM [facility] CO2 27 22 - 29 mmol/L 12/14/2019 2:59 AM [facility] Glucose 97 70 - 115 mg/dL 12/14/2019 2:59 AM [facility] Calcium 9.0 8.4 - 10.2 mg/dL 12/14/2019 2:59 AM [facility] Anion Gap 13 8 - 18 12/14/2019 2:59 AM T [facility] BUN/Creatinine Ratio 19 7 - 23 12/14/2019 2:59 AM T [facility] Osmolality Calculated 291 270 - 300 mOsm/kg 12/14/2019 2:59 AM CDT [facility] eGFR >60 >60 mL/min/1.7 3 m2 12/14/2019 2:59 AM T [facility] Blood BLOOD SPECIMEN / Unknown Lab Venipuncture / Unknown 12/14/2019 2:20 AM CDT 12/14/2019 2:36 AM CDT Dany Avery MD LAB - CHEMISTRY [facility] Organization Address City/State/ZIP Co de Phone Number [facility] [address] [place] [id number], [facility] [phone] from Last 3 Months or Most Recently Relevant to Health Maintenance Advance Directives * Full Code (Latest Code Status on File) Date Activated Date Inactivated Comments 12/10/2019 6:54 AM 12/14/2019 5:44 PM * Full Code Date Activated Date Inactivated Comments 12/10/2019 6:37 AM 12/10/2019 6:54 AM Care Teams Steam Train Driver Relationship Specialty Start Date End Date Norma Orozco MD PCP - General Internal Medicine 02/26/20
--- OUTSIDE RECORDS SUMMARY | 2024-06-20 10:32 | XMS_ITS | Encounter Summary ---
Author Organization [facility] Address [facility] [place] [address] Care Team Providers Care Life Insurance Salesperson Name Role Phone Rai Parr PA-C Primary Care Provider +1- [phone] Norma Orozco MD Primary Care Provider +1- [phone] Encounter Details Date Type Department Care Team (Late st Contact Info) Description 08/05/2018 COMPUTER FIELD TECHNICIAN ONLY [facility] - [address] [place] [address] Scanned, Documents Social History Tobacco [...] 7:23 AM CDT JULIETH CARPENTER MD: Acct: [id number] Admit/Service Date: 08/04/18 Discharge Date: 08/04/18 : 1965 Pt Type: DEP SDC Sex: F Ord Site: [facility] OPERATIVE RECORD Date of Operation: 08/04/2018 [...] DB:crystal A A cc: Bryant Darnell PA-C [id number] documented in this encounter Plan of Treatment Not on file documented as of this encounter Visit Diagnoses Not on filedocumented in this encounter Additional Health Concerns Infection Onset Date Last Indicated Resolved Time COVID-19 Rule Out 11/27/2019 11/27/2019 11/27/2019 12:32 PM CDT COVID-19 Rule Out 03/08/2020 03/08/2020 03/11/2020 7:01 PM TELEPHONE COLLECTOR COVID-19 Confirmed 03/08/2020 03/08/2020 12:36 AM TELEPHONE COLLECTOR COVID-19 Rule Out 11/07/2020 11/07/2020 11/09/2020 7:26 PM CDT documented as of this encounter Care Teams Life Insurance Salesperson Relationship Specialty Start Date End Date Ria Parr PA-C [address] [facility] [address] [place] [address] PCP - General PHYSICIAN QUALITY CONTROL HEAD 10/17/18 04/23/24 Norma Orozco MD [address] [place] [id number] PCP - General INTERNAL MEDICINE 04/24/24 documented as of this encounter
--- OUTSIDE RECORDS SUMMARY | 2024-06-20 10:32 | XMS_ITS | Encounter Summary ---
Author Organization [facility] Address [facility] [place] [address] Care Team Providers Care Digital Project Coordinator Name Role Phone Ria Parr PA-C Primary Care Provider +1- [phone] Norma Orozco MD Primary Care Provider +1- [phone] Encounter Details Date Type Department Care Team (Late st Contact Info) Description 01/19/2018 Abstract [facility] Ria Parr PA-C [address] [address] Social History Tobacco Use Types Packs/Day Years [...] CDT Jan 19, 2018 Julieth Abrams [address] [place] [address] Dear Julieth Abrams, Thank you for choosing [facility] for your health care needs. We appreciate the opportunity to help you maintain your well being. You recently had your mammogram done. Your results came back normal. Repeat mammogram in 1 year. Please remember to follow up as discussed at your last appointment. If you have any questions please feel free to call the office at [phone], Option #3 or Option #1 to make an appointment to discuss these results. Respectfully Yours, Electronically Signed by: Ria GARCIA Cc: Patients Medical Record UNTING PROFESSOR documented in this encounter Plan of Treatment Not on file documented as of this encounter Visit Diagnoses Not on filedocumented in this encounter Additional Health Concerns Infection Onset Date Last Indicated Resolved Time COVID-19 Rule Out 11/27/2019 11/27/2019 11/27/2019 12:32 PM CDT COVID-19 Rule Out 03/08/2020 03/08/2020 03/11/2020 7:01 PM ACCOUNTING PROFESSOR COVID-19 Confirmed 03/08/2020 03/08/2020 12:36 AM ACCOUNTING PROFESSOR COVID-19 Rule Out 11/07/2020 11/07/2020 11/09/2020 7:26 PM CDT documented as of this encounter Care Teams Digital Project Coordinator Relationship Specialty Start Date End Date Ria Parr PA-C [address] [address] PCP - General PHYSICIAN FISHER REEF NET 10/17/18 04/23/24 Norma Orozco MD [address] [place] [id number] PCP - General INTERNAL MEDICINE 04/24/24 documented as of this encounter
--- OUTSIDE RECORDS SUMMARY | 2024-06-20 10:32 | XMS_ITS | Referral Summary ---
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 Jose BARRETO T: Report ID: [id number] Reading Location: [place] [address] Procedure Note Jose Schafer MD - 05/22/2024 [...] signed by Jose BARRETO T: Report ID: [id number] Reading Location: [place] [address] Liam GARCIA IMG XR PROCEDURES Final Result * [place] Fluoroscopy < 1 Hour (05/22/2024 1:30 PM FURNACE CHECKER) Narrative CARROL_GIANB_MHE - 05/22/2024 1:31 PM FURNACE CHECKER The images from this study are not interpreted by Radiology. Please refer to the physician's procedure / OR operative note. Heavenly Stratton DO IMG FLUOROSCOPY PROCEDURES Fin al Result RAD_CLARIO_MHB_MHE * [place] AN ELECTIVE ENDOTRACHEAL AIRWAY, [place] AN PROCEDURE PLACEHOLDER (05/22/2024 12:18 PM FURNACE CHECKER) Narrative Susan Bob MD - 05/22/2024 12:18 PM FURNACE CHECKER Susan Bob MD 05/22/2024 12:18 PM Airway [...] / Rh Confirmation Testing (05/22/2024 9:44 AM FURNACE CHECKER) [facility] ABO/Rh Confirmation O Positive [facility] Blood 05/22/2024 9:44 AM FURNACE CHECKER 05/22/2024 9:47 AM FURNACE CHECKER Heavenly Stratton DO LAB BLOOD ORDERABLES Final Res ult [facility] [address] [facility] Department [place] [address] [facility] * ECG 12 lead (05/08/2024 1:20 PM FURNACE CHECKER) [facility] Ventricular Rate EKG/Min [address] [facility] Atrial Rate [address] [facility] [place]-Interval (MSEC) [address] [facility] QRS-Interval (MSEC) [address] [facility] QT-Interval (MSEC) [address] [facility] QTc 418 ms [facility] P [place] 63 degrees [facility] R [place] 21 degrees [facility] T [place] 12 degrees [facility] Diagnosis Sinus bradycardia Otherwise normal ECG When compared with ECG of 24-FEB-2019 08:48, No significant change was found Confirmed by BALWINDER ESTRADA M.D. ([id number]) on 05/08/2024 9:40:53 PM [facility] 05/08/2024 1:20 PM FURNACE CHECKER 05/08/2024 9:40 PM FURNACE CHECKER Jany Ferguson FRANCHISE BUSINESS CONSULTANT ECG ORDERABLES Cesia l Result [facility] * eGFR (05/08/2024 1:10 PM FURNACE CHECKER) eGFR >90 >=60 mL/min/1. 73 m2 Comment: [...] of Race in Diagnosing Kidney Disease, JASN 1). The CKD-EPI equation should not be used for patients with unstable renal function and has not been validated in children and those over 70. Current interpretive data was last reviewed 2021. Blood 05/08/2024 1:10 PM FURNACE CHECKER 05/08/2024 1:20 PM FURNACE CHECKER us Heavenly Stratton DO LAB BLOOD ORDERABLES Final Res ult RAY [address] Department [place] [address] * Differential, auto (05/08/2024 1:10 PM FURNACE CHECKER) Neutrophil abs 4.4 1.5 - 6.5 K/cumm Imm gran abs 0.0 0.0 - 0.1 K/cumm [facility] Lymphocyte abs 2.0 0.8 - 3.3 K/cumm [facility] Monocyte abs 0.4 0.2 - 0.8 K/cumm [facility] Eosinophil abs 0.1 0.0 - 0.5 K/cumm [facility] Basophil abs 0.0 0.0 - 0.1 K/cumm [facility] Neutrophil pct 63.9 % [facility] Comment: Interpretive Data Percent cell count reference ranges are not reported, since discordance with absolute values may lead to misinterpretation of CBC data. Current Interpretive Data was last revised on 2017. Imm gran pct 0.4 % [facility] Comment: Interpretive Data Percent cell count reference ranges are not reported, since discordance with absolute values may lead to misinterpretation of CBC data. Current Interpretive Data was last revised on 2017. Lymphocyte pct 29.0 % [facility] Comment: Interpretive Data Percent cell count reference ranges are not reported, since discordance with absolute values may lead to misinterpretation of CBC data. Current Interpretive Data was last revised on 2017. Monocyte pct 5.4 % [facility] Comment: Interpretive Data Percent cell count reference ranges are not reported, since discordance with absolute values may lead to misinterpretation of CBC data. Current Interpretive Data was last revised on 2017. Eosinophil pct 0.7 % [facility] Comment: Interpretive Data Percent cell count reference ranges are not reported, since discordance with absolute values may lead to misinterpretation of CBC data. Current Interpretive Data was last revised on 2017. Basophil pct 0.6 % [facility] Comment: Interpretive Data Percent cell count reference ranges are not reported, since discordance with absolute values may lead to misinterpretation of CBC data. Current Interpretive Data was last revised on 2017. Blood 05/08/2024 1:10 PM FURNACE CHECKER 05/08/2024 1:20 PM FURNACE CHECKER [facility] BLOOD ORDERABLES Final Res ult Performing Organization Address [facility] de Phone Number RAY [address] [address] * Infection Prevention MRSA Only (Staphylococcus aureus) PCR Nasal (05/08/2024 1:10 PM FURNACE CHECKER) [facility] PCR Scrn, Methicillin resistant Staphylococcus aureus (MRSA) Not Detected Not Detected Comment: Interpretive Data Testing performed using Nucleic Acid Amplification with the [employer] Xpert MRSA NxG Assay. This assay detects target DNA from mecA, mecC and the SCCmec insertion site of Staphylococcus aureus using Real-Time PCR and has been cleared by the FDA. Performance characteristics have been verified by the [facility]. Current Interpretive Data was last revised on 2023 Nasal 05/08/2024 1:10 PM FURNACE CHECKER 05/08/2024 1:20 PM FURNACE CHECKER [facility] MICROBIOLOGY - GENERAL ORD ERABLES Final Result Performing Organization Address [facility] Co de Phone Number RAY [facility] [place] [address] * CBC with auto differential (05/08/2024 1:10 PM FURNACE CHECKER) [facility] WBC 6.9 3.8 - 9.9 K/cumm Hgb 13.0 11.9 - 15.5 g/dL [facility] Hct 40.1 35.6 - 45.5 % [facility] Plt 318 150 - 400 K/cumm [facility] MPV 10.3 9.1 - 12.3 fL [facility] RBC 4.23 3.90 - 5.20 M/cumm [facility] MCV 94.8 81.3 - 96.4 fL [facility] MCH 30.7 27.1 - 33.3 pg [facility] MCHC 32.4 32.3 - 35.7 g/dL [facility] RDW CV 13.5 11.1 - 14.9 % [facility] RDW SD 47.1 35.7 - 48.1 fL [facility] NRBC abs 0.00 0.00 - 0.01 K/cumm [facility]AY Blood 05/08/2024 1:10 PM FURNACE CHECKER 05/08/2024 1:20 PM [facility] BLOOD ORDERABLES Final Res ult Performing Organization Address [facility] de Phone Number [address] [address] * ABO/Rh (05/08/2024 1:10 PM FURNACE CHECKER) ABO/Rh O Positive Blood 05/08/2024 1:10 PM FURNACE CHECKER 05/08/2024 1:20 PM FURNACE CHECKER Narrative [facility] - 05/08/2024 2:00 PM FURNACE CHECKER Is this test being ordered in advance for a procedure?->Yes Expected date of procedure:->05/22/24 Has the patient been transfused in the past 3 months?->No Has the patient been in the past 3 months?->No [facility] BLOOD BANK TEST ORDERABLES Final Result Performing Organization Address [facility] Phone Number [address] [address] * (ABNORMAL) Nicotine metabolite screen, urine (05/08/2024 1:10 PM FURNACE CHECKER) Pathologist [facility] Nicotine, ur <5.0 <5.0 ng/mL [facility] Cotinine, ur 85(H) <5.0 ng/mL [facility] Anabasine ur <2.0 <2.0 ng/mL [facility] Comment: ADDITIONAL INFORMATION This test was developed and its performance characteristics determined by [facility] in a manner consistent with CLIA requirements. This test has not been cleared or approved by the U.S. Food and Drug Administration. Test Performed by: [facility] [address] [place] [address] Water Resources Project Manager: Arnaud Celaya Ph.D.; CLIA# [id number] Nornicotine, ur <2.0 <2.0 ng/mL [facility] Urine 05/08/2024 1:10 PM FURNACE CHECKER 05/08/2024 1:20 PM FURNACE CHECKER [facility] LAB URINE ORDERABLES Final Res ult Performing Organization Address [facility] de Phone Number [address] [address] [facility] * Protime-INR (05/08/2024 1:10 PM FURNACE CHECKER) PT 14.1 12.0 - 14.6 sec INR 1.1 0.9 - 1.2 RAY Comment: Ref Range High Interpretive data Oral anticoagulant therapeutic ranges: Venous thromboembolism prophylaxis or treatment: 2.0-3.0 CARDIOLOGY Standard range: 2.0-3.0 High-intensity range: 2.5-3.5 Refer to indication-specific guidelines for appropriate target ranges for prosthetic heart valve replacement. Current interpretive data was last revised on 2019. Blood 05/08/2024 1:10 PM FURNACE CHECKER 05/08/2024 1:20 PM FURNACE CHECKER [facility] LAB BLOOD ORDERABLES Final Res ult Performing Organization Address [facility] de Phone Number [address] [address] * Antibody screen (05/08/2024 1:10 PM FURNACE CHECKER) Cody, indirect, Gel Interpretation Negative ABSC Blood 05/08/2024 1:10 PM FURNACE CHECKER 05/08/2024 1:20 PM FURNACE CHECKER Narrative RAY - 05/08/2024 2:00 PM FURNACE CHECKER Is this test being ordered in advance for a procedure?->Yes Expected date of procedure:->05/22/24 Has the patient been transfused in the past 3 months?->No Has the patient been in the past 3 months?->No [facility] LAB BLOOD BANK TEST ORDERABLES Final Result RAY [address] [facility] Department [place] [address] * Comprehensive metabolic panel (05/08/2024 1:10 PM FURNACE CHECKER) Sodium 137 135 - 145 mmol/L Potassium, pl 4.1 3.3 - 4.9 mmol/L [facility] Chloride 104 97 - 110 mmol/L [facility] CO2 24 22 - 32 mmol/L [facility] Anion gap 9 2 - 15 mmol/L [facility] BUN 18 6 - 25 mg/dL [facility] Creatinine 0.70 0.60 - 1.10 mg/dL [facility] Glucose 97 70 - 199 mg/dL [facility] Comment: Interpretive Data Fasting glucose >/= 126 [...] 2022. Calcium 10.2 8.5 - 10.3 mg/dL [facility] Bilirubin, total 0.8 0.1 - 1.2 mg/dL [facility] Protein, pl 6.9 6.5 - 8.5 g/dL [facility] Albumin 4.4 3.5 - 5.0 g/dL [facility] Alk phos 43 40 - 130 Units/L [facility] ALT 19 7 - 45 Units/L [facility] AST 25 10 - 45 Units/L [facility] Blood 05/08/2024 1:10 PM FURNACE CHECKER 05/08/2024 1:20 PM FURNACE CHECKER Blakelyn Chayito DO LAB BLOOD ORDERABLES Final Res ult RAY [address] [facility] Department [place] [address] * Pap and High Risk HPV and Genotyping (Cytology Component) (05/31/2023 11:17 AM FURNACE CHECKER) Thin prep (Pap test) 05/31/2023 11:17 AM FURNACE CHECKER 05/31/2023 7:41 PM FURNACE CHECKER Narrative [facility]OLOGY [facility] - 06/07/2023 7:14 AM FURNACE CHECKER EPIC results best viewed via link to PDF [facility] [place] [address] Note to Patients: This report may contain [...] REPORT FINAL Patient Name: JULIETH ABRAMS Gender: John : 1965 (Age: 57) Address: [address] [place] [id number] Hospital #: [id number] Service: DEFAULT Location: Patient Type: [facility] SPECIMEN Taken: 05/31/2023 Received: 05/31/2023 Accessioned: 06/01/2023 [...] this test have been verified by the [facility] Molecular Infectious Disease laboratory. Correlate with reported cytology results, as applicable. Interpretive data last revised 22 This specimen has been rescreened in accordance with this laboratory's Alteration Worker Program. [facility]/06/07/2023 07:14 KB Meehan(ASCP) Report Electronically Reviewed and [...] clinical information and biopsy results as indicated. [facility] Clinical Laboratory Improvement Amendments (CLIA) mandate that cytologic and histologic results be correlated for laboratory water quality specialist & improvement standards. FOR ALL HIGH-GRADE CASES [...] determined by the Surgical Pathology Department at [facility] as part of an ongoing aircraft quality control inspector program and in compliance with federally mandated [...] determined by the Surgical Pathology Department of [facility]. It has not been cleared or approved by the U. S. Food and Drug Administration. Cassidy Gutierrez MD LAB CYTOLOGY ORDERABLES F inal Result PATHOLOGY [facility] * (ABNORMAL) Screening Mammogram Bilateral W Rafael [...] Most Recently Relevant to Health Maintenance Insurance [facility] CHOICE PLUS [facility] CHOICE PLUS Advance Directives For more information, please contact: [phone] * Full Code (Latest Code Status on File) Date Activated Date Inactivated Comments 05/22/2024 4:57 PM 05/25/2024 3:22 PM Care Teams Patients Transporter Relationship Specialty Start Date End Date Norma Orozco MD [address] [place] [id number] PCP - General Internal Medicine 04/03/24 Cassidy Gutierrez MD [address] [place] [address] Manager Drug Safety Obstetrics and Gynecology 05/08/24 Arthur Dockery MD [address] [facility] [address] [place] [address] Consulting Physician Urology 05/08/24 Heavenly Stratton DO [address] [address] Consulting Physician Orthopedic Surgery 05/23/24
--- OUTSIDE RECORDS SUMMARY | 2024-06-20 10:32 | XMS_ITS | Patient Health Summary ---
Author Organization [facility] [employer] Address [address] [place] [address] Care Team Providers Care Powder Carrier Name Role Phone Norma Orozoc MD Primary Care Provider Note from [facility],non-owned Affiliates and Associated Physician Practices is amultiple site organization consisting of ambulatory clinics and hospital sitesin [place], [place], [place]. This disclosure is being madepursuant to the Care Everywhere program and may not contain all information available regarding this patient. Last updated 18.[facility] [employer] Allergies No known active allergies Medications Be [...] Comments Blood Pressure 127/82 02/26/2020 1:16 PM NATURAL RESOURCES PROFESSOR Pulse 83 02/26/2020 1:16 PM NATURAL RESOURCES PROFESSOR Temperature 36.3 C (97.4 F) 01/23/2020 9:57 AM CDT Respiratory Rate 16 01/23/2020 9:57 AM CDT Oxygen Saturation 99% 01/23/2020 9:57 AM CDT Inhaled Oxygen Concentration - - Weight 84.6 kg (186 lb 9.6 oz) 01/23/2020 9:57 A M CDT Height 167.6 cm (5' 6 ) 02/26/2020 1:16 PM NATURAL RESOURCES PROFESSOR Body Mass Index 30.12 01/23/2020 9:57 AM CDT Procedures * VA EAR MICROSCOPY EXAMINATION(Performed 02/26/2020) Performed for Closed [...] Trauma * ENDOTRACHEAL TUBE NOTE(Performed 12/10/2019) * VA LAP,DIAGNOSTIC ABDOMEN(Performed 12/10/2019) Performed for Blunt abdominal [...] BLOOD(Performed 12/10/2019) Performed for Trauma Results * VA EAR MICROSCOPY EXAMINATION (02/26/2020 2:14 PM NATURAL RESOURCES PROFESSOR) Narrative Akil Munoz MD - 02/26/2020 2:14 PM NATURAL RESOURCES PROFESSOR Akil Munoz MD 02/26/2020 2:14 PM Procedure: Microscopic exam of the ear(s) Findings: See main note. Procedure in detail: The binocular operating microscope and and ear speculum were used to exam the ear(s). The patient tolerated the procedure well and there was no bleeding. Akil Munoz MD Akil Munoz MD PROCEDURE/MINOR YOSSI GICAL ORDERABLES * AUDIOLOGY/TYMPANOMETRY ORDER (02/26/2020 12:28 PM NATURAL RESOURCES PROFESSOR) Roque Barrios, PhD - 02/26/2020 12:56 PM NATURAL RESOURCES PROFESSOR Julieth Abrams is a 54 year old [...] with an ENT/ PCP. Roque Welch, Ph.D., [facility] Leather Stitcher Director, Division of Audiology Department of Otolaryngology- Head & Neck Surgery [facility] Roque Welch PhD AUDIOLOGY SERVICES O RDERABLES [...] on 12/22/2019 11:45 AM . Lakeisha Barrera CONTROL MANAGER-ENGRAVER WOOD FLUOROSCOPY ORDE ZARA * (ABNORMAL) CBC W AUTO DIFFERENTIAL (12/14/2019 2:20 AM CDT) Only the most recent of6 resultswithin the time period is included. WBC 8.5 3.5 - 10.5 10 3/uL 12/14/2019 2:39 AM CDT [facility] RBC 3.64(L) 3.90 - 5.00 10 6/uL 12/14/2019 2:39 AM [facility] Hemoglobin 11.2(L) 12.0 - 15.5 g/dL 12/14/2019 2:39 AM [facility] Hematocrit 34.7(L) 35.0 - 45.0 % 12/14/2019 2:39 AM [facility] MCV 95.3 81.0 - 97.0 fL 12/14/2019 2:39 AM [facility] MCH 30.8 28.0 - 34.0 pg 12/14/2019 2:39 AM [facility] MCHC 32.3 32.0 - 36.0 g/dL 12/14/2019 2:39 AM [facility] Platelet Count 320 150 - 400 10 3/uL 12/14/2019 2:39 AM [facility] RDW-SD 45.4 36.0 - 50.0 fL 12/14/2019 2:39 AM [facility] RDW-CV 13.0 11.2 - 14.8 % 12/14/2019 2:39 AM [facility] MPV 9.8 9.3 - 12.8 fL 12/14/2019 2:39 AM [facility] nRBC Absolute 0.00 0 10 3/uL 12/14/2019 2:39 AM [facility] nRBC Auto 0.0 0 /100 WBC 12/14/2019 2:39 AM [facility] Neutrophils % 53.2 35.0 - 70.0 % 12/14/2019 2:39 AM [facility] Lymphocytes % 35.3 19.7 - 55.1 % 12/14/2019 2:39 AM [facility] Monocytes % 6.3 3.0 - 15.0 % 12/14/2019 2:39 AM [facility] Eosinophils % 3.9 0.0 - 6.0 % 12/14/2019 2:39 AM [facility] Basophil % 0.5 0.0 - 1.5 % 12/14/2019 2:39 AM [facility] Neutrophils Absolute 4.5 1.6 - 7.0 10 3/uL 12/14/2019 2:39 AM [facility] Lymphocyte Absolute 3.0(H) 0.8 - 2.9 10 3/uL 12/14/2019 2:39 AM T [facility] Monocytes Absolute 0.54 0.14 - 0.66 10 3/uL 12/14/2019 2:39 AM [facility] Eosinophils Absolute 0.33 0.00 - 0.45 10 3/uL 12/14/2019 2:39 AM [facility] Basophils Absolute 0.04 0.00 - 0.06 10 3/uL 12/14/2019 2:39 AM [facility] Immature Granulocytes % 0.8 0.0 - 1.0 % 12/14/2019 2:39 AM [facility] Blood BLOOD SPECIMEN / Unknown Lab Venipuncture / Unknown 12/14/2019 2:20 AM CDT 12/14/2019 2:36 AM CDT Dnay Avery MD LAB - HEMATOLOGY ORD ERABLES Performing Organization Address City/State/[facility] Co de Phone Number [address] [address] [phone] * BASIC METABOLIC PANEL (CALCIUM TOTAL) (12/14/2019 2:20 AM CDT) Only the most recent of6 resultswithin the time period is included. BUN 15 7 - 26 mg/dL 12/14/2019 2:59 AM [facility] Creatinine 0.8 0.6 - 1.2 mg/dL 12/14/2019 2:59 AM [facility] Sodium 140 136 - 145 mmol/L 12/14/2019 2:59 AM [facility] Potassium 3.9 3.5 - 4.5 mmol/L 12/14/2019 2:59 AM [facility] Chloride 104 98 - 107 mmol/L 12/14/2019 2:59 AM [facility] CO2 27 22 - 29 mmol/L 12/14/2019 2:59 AM [facility] Glucose 97 70 - 115 mg/dL 12/14/2019 2:59 AM [facility] Calcium 9.0 8.4 - 10.2 mg/dL 12/14/2019 2:59 AM [facility] Anion Gap 13 8 - 18 12/14/2019 2:59 AM CDT [facility] BUN/Creatinine Ratio 19 7 - 23 12/14/2019 2:59 AM CDT [facility] Osmolality Calculated 291 270 - 300 mOsm/kg 12/14/2019 2:59 AM CDT [facility] eGFR >60 >60 mL/min/1.7 3 m2 12/14/2019 2:59 AM CDT [facility] Blood BLOOD SPECIMEN / Unknown Lab Venipuncture / Unknown 12/14/2019 2:20 AM CDT 12/14/2019 2:36 AM CDT Dany Avery MD LAB - CHEMISTRY [place] [place] [address], [facility] [phone] * PHOSPHORUS BLOOD (12/14/2019 2:20 AM CDT) Only the most recent of5 resultswithin the time period is included. Phosphorus 3.2 2.3 - 4.7 mg/dL 12/14/2019 2:59 AM CDT [facility] Blood BLOOD SPECIMEN / Unknown Lab Venipuncture / Unknown 12/14/2019 2:20 AM CDT 12/14/2019 2:36 AM CDT Dany Avery MD LAB - CHEMISTRY [place] [address], [facility] [phone] * MAGNESIUM BLOOD (12/14/2019 2:20 AM CDT) Only the most recent of5 resultswithin the time period is included. Magnesium 2.0 1.6 - 2.6 mg/dL 12/14/2019 2:59 AM CDT [facility] Blood BLOOD SPECIMEN / Unknown Lab Venipuncture / Unknown 12/14/2019 2:20 AM CDT 12/14/2019 2:36 AM CDT Dany Avery MD LAB - CHEMISTRY ORDE ZARA Performing Organization Address [facility] Co de Phone Number [address] [address], [facility] [phone] * CREATININE BODY FLUID ([facility] ONLY) (12/12/2019 9:49 AM CDT) Creatinine Fluid 0.6 Not Established For Fluids mg/dL 12/12/2019 10:55 AM CDT [facility] Comment:The analytical perfo rmance of this test has been independently validated by [facility]. A reference range has not been established. Comparison of this result with the concentration in blood, serum or plasma is recommended. Fluid PERITONEAL FLUID / Unknown Collection / Unknown 12/12/2019 9:49 AM CDT 12/12/2019 10:21 AM CDT Lorie Gutierrez CONTROL MANAGER-ENGRAVER WOOD LAB - BODY FLUID ORDERABLES Performing Organization Address [facility] Co de Phone Number [address] [address], [facility] [phone] * XR TIBIA FIBULA RIGHT 2VW (12/11/2019 [...] unremarkable. Report dictated by Kaylen Estrada MD (residential advisor). This report was approved by Kaylen Estrada [...] unremarkable. Report dictated by Kaylen Estrada MD (residential advisor). This report was approved by Kaylen Estrada [...] of pain. Dictated by Shahriar Jacobs MD (residential advisor). Dr. Joshua Carmona M.D. have personally reviewed [...] of pain. Dictated by Shahriar Jacobs MD (residential advisor). Dr. Joshua Carmona M.D. have personally reviewed and interpretedthis examination/study. This report was electronically signed by Joshua SILVER M.D. on 12/11/2019 3:02 PM . Maribel Vicente Kiet DO DIAGNOSTIC IMAG ING ORDERABLES * (ABNORMAL) URINALYSIS W/MICROSCOPIC NO CULTURE (12/10/2019 6:55 AM CDT) Color UA Straw Straw, Yellow, Colorless 12/10/2019 7:27 AM [facility] Clarity UA Slt Cloudy Clear, Slt Cloudy 12/10/2019 7:27 AM [facility] Specific Ulman UA 1.017 1.005 - 1.030 12/10/2019 7:27 AM [facility] pH UA 7.0 5.0 - 8.0 pH 12/10/2019 7:27 AM [facility] Protein UA Negative Negative mg/dL 12/10/2019 7:27 AM [facility] Glucose UA 1+(A) Negative mg/dL 12/10/2019 7:27 AM [facility] Ketone UA Negative Negative mg/dL 12/10/2019 7:27 AM [facility] Bilirubin UA Negative Negative mg/dL 12/10/2019 7:27 AM [facility] Blood UA 3+(A) Negative 12/10/2019 7:27 AM [facility] Nitrite UA Negative Negative 12/10/2019 7:27 AM [facility] Leukocyte Esterase 1+(A) Negative 12/10/2019 7:27 AM [facility] Urobilinogen UA Negative Negative mg/dL 12/10/2019 7:27 AM [facility] RBC UA >100(A) None Seen, 0-2, 3-5 /HPF 12/10/2019 7:27 AM [facility] WBC UA 11-20(A) None Seen, 0-5 /HPF 12/10/2019 7:27 AM [facility] Bacteria UA Trace None, Trace /HPF 12/10/2019 7:27 AM [facility] Squamous Epithelial Cells UA None Seen None Seen, 0-2 /HPF 12/10/2019 7:27 AM [facility] Mucus UA 1+ None, 1+ /LPF 12/10/2019 7:27 AM [facility] Transitional Epithelial Cells UA 0-2 None Seen, 0-2 /HPF 12/10/2019 7:27 AM [facility] Urine URINE SPECIMEN OBTAINED BY SINGLE CATHETERIZATION OF URINARY BLADDER / Unknown Collection / Unknown 12/10/2019 6:55 AM CDT 12/10/2019 7:00 AM CDT Narrative [facility] - 12/10/2019 7:27 AM CDT Maribel Santa DO LAB - URINALYSI S ORDERABLES [address] [address], [facility] [phone] * (ABNORMAL) DRUG SCREEN TOX URINE PANEL (12/10/2019 6:55 AM CDT) Pathologist [facility] Amphetamines Screen Urine Negative Negative : < 1000 ng/mL 12/10/2019 7:19 AM [facility] Barbiturates Screen Urine Negative Negative : < 200 ng/mL 12/10/2019 7:19 AM [facility] Benzodiazepine Screen Urine Negative Negative : < 200 ng/mL 12/10/2019 7:19 AM [facility] Opiates Urine Negative Negative : < 300 ng/mL 12/10/2019 7:19 AM [facility] Cocaine Metabolites Urine Negative Negative : < 300 ng/mL 12/10/2019 7:19 AM [facility] Phencyclidine Screen Urine Negative Negative : < 25 ng/ml 12/10/2019 7:19 AM [facility] Cannabinoids Screen Urine Negative Negative : <50 ng/mL 12/10/2019 7:19 AM [facility] Methadone Screen Urine Negative Negative : < 300 ng/mL 12/10/2019 7:19 AM [facility] Fentanyl Screen Urine Positive(A) Negative : <1.0 ng/mL 12/10/2019 7:19 AM [facility] Comment:Positive urine fenta nyl screening results should be confirmed by another generally accepted non-immunological method such as gas chromatography or mass spectrometry. Urine URINE / Unknown Collection / Unknown 12/10/2019 6:55 AM CDT 12/10/2019 7:00 AM CD Narrative [facility] - 12/10/2019 7:19 AM CDT The Urine Toxicology Screening Panel does not screen for Propoxyphene, Meprobamate, Carisoprodol, Trazodone, sxxu-pzt-resvmay medications and/or volatiles (Acetone, Isopropanol, Methanol or Ethylene Glycol). Ethanol, Salicylate, Acetaminophen, Tricyclic Antidepressants and several therapeutic drugs may be individually assayed in serum or plasma specimen. Toxicology testing by the [facility] is an aid to medical diagnosis and treatment of patients. No documented chain of custody was maintained. Results are intended to be used for clinical purposes only. Maribel Santa DO LAB - URINE RICHAR RICKIE ORDERABLES [address] [address], [facility] [phone] * ETT LINE PERFORMABLE (12/10/2019 3:39 AM CDT) Narrative Mark Balderrama MD - 12/10/2019 3:39 AM CDMark Amato MD 12/10/2019 3:40 AM Endotracheal Tube Placement: Patient Location: OR. Intubation Event Date/Time: 12/10/2019 3:17 AM Procedure: intubation ([id number]). Procedure Section: Sedation: IV sedation. Indications for [...] is present. Dictated by [place] MD (residential advisor). I, Dr. ECTOR STEVENSON have personally reviewed [...] is present. Dictated by [place] MD (residential advisor). I, Dr. ECTOR STEVENSON have personally reviewed [...] is intact. Dictated by Shahriar Jacobs MD (residential advisor). I, Dr. LO SALGADO have personally reviewed [...] thorax isintact. Dictated by Shahriar Jacobs MD (residential advisor). Dr. LO Carmona have personally reviewed and [...] fracture identified. Dictated by Shahriar Jacobs MD (residential advisor). Dr. LO Carmona have personally reviewed and [...] fracture identified. Dictated by Shahriar Jacobs MD (residential advisor). I, Dr. LO SALGADO have personally reviewed and interpreted this examination/study. This report was electronically signed by LO SALGADO on 12/10/2019 11:27 AM . Maribel Santa DO DIAGNOSTIC IMAG ING ORDERABLES * TYPE + SCREEN PANEL (12/10/2019 12:52 AM CDT) Antibody Screen NEG 0 2:20 AM CDT [facility] ABO Rh O POS 12/10/2019 2:20 AM CDT [facility] Blood Bank BLOOD SPECIMEN / Unknown Venipuncture / Unknown 12/10/2019 12:52 AM CDT 12/10/2019 1:23 AM CDT Maribel Santa DO LAB - BLOOD BAN K ORDERABLES Performing Organization Address [facility] de Phone Number [facility] [address] [place] [address] * (ABNORMAL) PT-INR [facility] (12/10/2019 12:51 AM CDT) PT 17.5(H) 12.1 - 14.8 Seconds 12/10/2019 1:28 AM CDT [facility] INR 1.5 See Comment 12/10/2019 1:28 AM CDT [facility] Comment:The suggested therap eutic range [...] ON ORDERABLES Performing Organization Address [facility]/ZIP Co de Phone Number [address] [address], [place] [phone] * (ABNORMAL) HCG BETA BLOOD QUANTITATIVE (12/10/2019 12:51 AM CDT) Beta-hCG Total Quantitative 5(H) <5 mIU/mL 12/10/2019 1:35 AM CDT [facility] Comment: This assay is cleared for [...] LAB - CHEMISTRY ORDERABLES Performing Organization Address City/[facility]/ZIP Co de Phone Number [address], [facility] [phone] * (ABNORMAL) ALCOHOL ETHYL BLOOD (12/10/2019 12:51 AM CDT) Pathologist [facility] Ethanol (mg/dL) 100(H) None Detected mg/dL 12/10/2019 1:29 AM CDT [facility] Comment:Ethanol in the patie nt's blood will contribute to the osmolar gap. Ethanol's contribution to the osmolar gap can be estimated by dividing the concentration of ethanol in mg/dL by 4.6. Blood BLOOD SPECIMEN / Unknown Venipuncture / Unknown 12/10/2019 12:51 AM CDT 12/10/2019 1:10 AM CDT Maribel Santa DO LAB - CHEMISTRY ORDERABLES Performing Organization Address [facility]/ZIP Co de Phone Number [address] [phone] [phone] Care Teams Powder Carrier Relationship Specialty Start Date End Date Norma Orozco MD PCP - General Internal Medicine 02/26/20
--- OUTSIDE RECORDS SUMMARY | 2024-06-20 10:32 | XMS_ITS | Encounter Summary ---
Author Organization [facility] Address [facility]ly [facility] [place] [address] Care Team Providers Care Logger Driving Horses Name Role Phone Ria Parr PA-C Primary Care Provider [phone] Norma Orozco MD Primary Care Provider [phone]- [phone] Encounter Details Date Type Department Care Team (Late st Contact Info) Description 11/29/2019 Hospital Follow-up Call [facility] [place] [address] Shy Linton, RN Social History Tobacco Use [...] Status No 11/26/2019 2:38 AM MIKET Chante Jordan RN Active * Do you have difficulty [...] Rule Out 03/08/2020 03/08/2020 03/11/2020 7:01 PM FIELD SPECIALIST COVID-19 Confirmed 03/08/2020 03/08/2020 12:36 AM FIELD SPECIALIST COVID-19 Rule Out 11/07/2020 11/07/2020 11/09/2020 7:26 PM CDT Assessment Noted Time PHQ-9 Depression Total Score: 2 01/17/20 19 1:54 PM CDT documented as of this encounter Care Teams Logger Driving Horses Relationship Specialty Start Date End Date Ria Parr PA-C [address] [address] PCP - General PHYSICIAN DENIER CONTROL OPERATOR 10/17/18 04/23/24 Norma Orozco MD [address] [place] [address] PCP - General INTERNAL MEDICINE 04/24/24 documented as of this encounter
--- OUTSIDE RECORDS SUMMARY | 2024-06-20 10:32 | XMS_ITS | Referral Summary ---
Author Organization [facility] [employer] Address [address] [place] [address] Care Team Providers Care Leasing Assistant Name Role Phone Norma Orozco MD Primary Care Provider Source Comments [facility] [employer],non-owned Affiliates and Associated Physician Practices is amultiple site organization consisting of ambulatory clinics and hospital sitesin [place], [place] and [place]. This disclosure is being madepursuant to the Care Everywhere program and may not contain all information available regarding this patient. Last updated 18.[facility] [employer] Allergies No known active allergies Medications Be [...] Comments Blood Pressure 127/82 02/26/2020 1:16 PM CRITICAL SYSTEMS TECHNICIAN Pulse 83 02/26/2020 1:16 PM CRITICAL SYSTEMS TECHNICIAN Temperature 36.3 C (97.4 F) 01/23/2020 9:57 AM CDT Respiratory Rate 16 01/23/2020 9:57 AM CDT Oxygen Saturation 99% 01/23/2020 9:57 AM CDT Inhaled Oxygen Concentration - - Weight 84.6 kg (186 lb 9.6 oz) 01/23/2020 9:57 A M CDT Height 167.6 cm (5' 6 ) 02/26/2020 1:16 PM CRITICAL SYSTEMS TECHNICIAN Body Mass Index 30.12 01/23/2020 9:57 AM [...] - 26 mg/dL 12/14/2019 2:59 AM CDT [facility] Creatinine 0.8 0.6 - 1.2 mg/dL 12/14/2019 2:59 AM CDT [facility] Sodium 140 136 - 145 mmol/L 12/14/2019 2:59 AM CDT [facility] Potassium 3.9 3.5 - 4.5 mmol/L 12/14/2019 2:59 AM [facility] Chloride 104 98 - 107 mmol/L 12/14/2019 2:59 AM T [facility] CO2 27 22 - 29 mmol/L 12/14/2019 2:59 AM CDT [facility] Glucose 97 70 - 115 mg/dL 12/14/2019 2:59 AM T [facility] Calcium 9.0 8.4 - 10.2 mg/dL 12/14/2019 2:59 AM T [facility] Anion Gap 13 8 - 18 12/14/2019 2:59 AM [facility] BUN/Creatinine Ratio 19 7 - 23 12/14/2019 2:59 AM [facility] Osmolality Calculated 291 270 - 300 mOsm/kg 12/14/2019 2:59 AM [facility] eGFR >60 >60 mL/min/1.7 3 m2 12/14/2019 2:59 AM T [facility] Blood BLOOD SPECIMEN / Unknown Lab Venipuncture / Unknown 12/14/2019 2:20 AM CDT 12/14/2019 2:36 AM CDT Dany Avery MD LAB - CHEMISTRY RODRICK Wolff Organization Address City/State/ZIP Co de Phone Number [address] [address], [facility] [phone] from Last 3 Months or Most Recently Relevant to Health Maintenance Advance Directives * Full Code (Latest Code Status on File) Date Activated Date Inactivated Comments 12/10/2019 6:54 AM 12/14/2019 5:44 PM * Full Code Date Activated Date Inactivated Comments 12/10/2019 6:37 AM 12/10/2019 6:54 AM Care Teams Leasing Assistant Relationship Specialty Start Date End Date Norma Orozco MD PCP - General Internal Medicine 02/26/20
--- OUTSIDE RECORDS SUMMARY | 2024-06-20 10:32 | XMS_ITS | Clinical Summary ---
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 05/22/2024 2:25 PM LOCAL TRUCK DRIVER EXAM DESCRIPTION: XR HIP RIGHT 2 OR [...] signed by Jose BARRETO T: Report ID: [id number] Reading Location: [id number] Procedure Note Jose Schafer MD - 05/22/2024 [...] signed by Jose BARRETO T: Report ID: [id number] Reading Location: [id number] Liam GARCIA IMG XR PROCEDURES Final Result * [place] Fluoroscopy < 1 Hour (05/22/2024 1:30 PM LOCAL TRUCK DRIVER) Narrative [email or web address]_[email or web address] - 05/22/2024 1:31 PM LOCAL TRUCK DRIVER The images from this study are not interpreted by Radiology. Please refer to the physician's procedure / OR operative note. us Blakelyn Chayito DO IMG FLUOROSCOPY PROCEDURES Fin al Result [email or web address] * TX AN ELECTIVE ENDOTRACHEAL AIRWAY, TX AN PROCEDURE PLACEHOLDER (05/22/2024 12:18 PM LOCAL TRUCK DRIVER) Narrative Susan Bob MD - 05/22/2024 12:18 PM LOCAL TRUCK DRIVER Susan Bob MD 05/22/2024 12:18 PM Airway [...] / Rh Confirmation Testing (05/22/2024 9:44 AM LOCAL TRUCK DRIVER) ABO/Rh Confirmation O Positive [facility] Blood 05/22/2024 9:44 AM LOCAL TRUCK DRIVER 05/22/2024 9:47 AM LOCAL TRUCK DRIVER Heavenly Stratton DO LAB BLOOD ORDERABLES Final Res ult RAY [address] [facility] Department [place] [address] MHB * ECG 12 lead (05/08/2024 1:20 PM LOCAL TRUCK DRIVER) Ventricular Rate EKG/Min 53 BPM [facility] Atrial Rate 53 BPM [facility] TX-Interval (MSEC) 148 ms [facility] QRS-Interval (MSEC) 78 ms [facility] QT-Interval (MSEC) 446 ms [facility] QTc 418 ms [facility] P [place] 63 degrees [facility] R [place] 21 degrees [facility] T [place] 12 degrees [facility] Diagnosis Sinus bradycardia Otherwise normal ECG When compared with ECG of 24-FEB-2019 08:48, No significant change was found Confirmed by BALWINDER ESTRADA M.D. ([id number]) on 05/08/2024 9:40:53 PM [facility] 05/08/2024 1:20 PM LOCAL TRUCK DRIVER 05/08/2024 9:40 PM LOCAL TRUCK DRIVER us Jany Ferguson NP ECG ORDERABLES Cesia kyle Result [facility] * eGFR (05/08/2024 1:10 PM LOCAL TRUCK DRIVER) Pathologist [facility] eGFR >90 >=60 mL/min/1. 73 m2 Comment: [...] last reviewed 2021. Blood 05/08/2024 1:10 PM LOCAL TRUCK DRIVER 05/08/2024 1:20 PM LOCAL TRUCK DRIVER us Heavenly Stratton DO LAB BLOOD ORDERABLES Final Res ult RAY [address] [facility] Department [place] [address] * Differential, auto (05/08/2024 1:10 PM LOCAL TRUCK DRIVER) Neutrophil abs 4.4 1.5 - 6.5 K/cumm Imm gran abs 0.0 0.0 - 0.1 K/cumm [facility] Lymphocyte abs 2.0 0.8 - 3.3 K/cumm [facility] Monocyte abs 0.4 0.2 - 0.8 K/cumm [facility] Eosinophil abs 0.1 0.0 - 0.5 K/cumm [facility] Basophil abs 0.0 0.0 - 0.1 K/cumm [facility] Neutrophil pct 63.9 % [facility] Comment: Interpretive Data Percent cell count reference ranges are not reported, since discordance with absolute values may lead to misinterpretation of CBC data. Current Interpretive Data was last revised on 2017. Imm gran pct 0.4 % [facility] Comment: Interpretive Data Percent cell count reference ranges are not reported, since discordance with absolute values may lead to misinterpretation of CBC data. Current Interpretive Data was last revised on 2017. Lymphocyte pct 29.0 % [facility] Comment: Interpretive Data Percent cell count reference ranges are not reported, since discordance with absolute values may lead to misinterpretation of CBC data. Current Interpretive Data was last revised on 2017. Monocyte pct 5.4 % [facility] Comment: Interpretive Data Percent cell count reference ranges are not reported, since discordance with absolute values may lead to misinterpretation of CBC data. Current Interpretive Data was last revised on 2017. Eosinophil pct 0.7 % [facility] Comment: Interpretive Data Percent cell count reference ranges are not reported, since discordance with absolute values may lead to misinterpretation of CBC data. Current Interpretive Data was last revised on 2017. Basophil pct 0.6 % [facility] Comment: Interpretive Data Percent cell count reference ranges are not reported, since discordance with absolute values may lead to misinterpretation of CBC data. Current Interpretive Data was last revised on 2017. Blood 05/08/2024 1:10 PM LOCAL TRUCK DRIVER 05/08/2024 1:20 PM LOCAL TRUCK DRIVER [facility] BLOOD ORDERABLES Final Res ult Performing Organization Address [facility] de Phone Number [address] [address] * Infection Prevention MRSA Only (Staphylococcus aureus) PCR Nasal (05/08/2024 1:10 PM LOCAL TRUCK DRIVER) [facility] PCR Scrn, Methicillin resistant Staphylococcus aureus (MRSA) Not Detected Not Detected Comment: Interpretive Data Testing performed using Nucleic Acid Amplification with the [address] Xpert MRSA NxG Assay. This assay detects target DNA from mecA, mecC and the SCCmec insertion site of Staphylococcus aureus using Real-Time PCR and has been cleared by the FDA. Performance characteristics have been verified by the [facility]. Current Interpretive Data was last revised on 2023 Nasal 05/08/2024 1:10 PM LOCAL TRUCK DRIVER 05/08/2024 1:20 PM LOCAL TRUCK DRIVER [facility] MICROBIOLOGY - GENERAL ORD ERABLES Final Result Performing Organization Address [facility] de Phone Number [address] [address] * CBC with auto differential (05/08/2024 1:10 PM LOCAL TRUCK DRIVER) [facility] WBC 6.9 3.8 - 9.9 K/cumm Hgb 13.0 11.9 - 15.5 g/dL [facility] Hct 40.1 35.6 - 45.5 % [facility] Plt 318 150 - 400 K/cumm [facility] MPV 10.3 9.1 - 12.3 fL [facility] RBC 4.23 3.90 - 5.20 M/cumm [facility] MCV 94.8 81.3 - 96.4 fL [facility] MCH 30.7 27.1 - 33.3 pg [facility] MCHC 32.4 32.3 - 35.7 g/dL [facility] RDW CV 13.5 11.1 - 14.9 % [facility] RDW SD 47.1 35.7 - 48.1 fL [facility] NRBC abs 0.00 0.00 - 0.01 K/cumm [facility] Blood 05/08/2024 1:10 PM LOCAL TRUCK DRIVER 05/08/2024 1:20 PM LOCAL TRUCK DRIVER [employer] LAB BLOOD ORDERABLES Final Res ult Performing Organization Address [facility] de Phone Number [address] [place] [address] * ABO/Rh (05/08/2024 1:10 PM LOCAL TRUCK DRIVER) Pathologist [facility] ABO/Rh O Positive Blood 05/08/2024 1:10 PM LOCAL TRUCK DRIVER 05/08/2024 1:20 PM LOCAL TRUCK DRIVER Narrative [facility] - 05/08/2024 2:00 PM LOCAL TRUCK DRIVER Is this test being ordered in advance for a procedure?->Yes Expected date of procedure:->05/22/24 Has the patient been transfused in the past 3 months?->No Has the patient been in the past 3 months?->No [facility] BLOOD BANK TEST ORDERABLES Final Result Performing Organization Address [facility] de Phone Number [address] [place] [address] * (ABNORMAL) Nicotine metabolite screen, urine (05/08/2024 1:10 PM LOCAL TRUCK DRIVER) Nicotine, ur <5.0 <5.0 ng/mL [facility] Cotinine, ur 85(H) <5.0 ng/mL [facility] Anabasine ur <2.0 <2.0 ng/mL [facility] Comment: ADDITIONAL INFORMATION This test was developed and its performance characteristics determined by [facility] in a manner consistent with CLIA requirements. This test has not been cleared or approved by the U.S. Food and Drug Administration. Test Performed by: [facility] - [facility] [address] [place] [address] [employer] Officer: Arnaud Celaya Ph.D.; CLIA# [id number] Nornicotine, ur <2.0 <2.0 ng/mL RAY Urine 05/08/2024 1:10 PM LOCAL TRUCK DRIVER 05/08/2024 1:20 PM LOCAL TRUCK DRIVER [employer] [facility] URINE ORDERABLES Final Res ult Performing Organization Address [facility] de Phone Number [address] [address] [place] [facility] * Protime-INR (05/08/2024 1:10 PM LOCAL TRUCK DRIVER) PT 14.1 12.0 - 14.6 sec INR 1.1 0.9 - 1.2 RAY Comment: Ref Range High Interpretive data Oral anticoagulant therapeutic ranges: Venous thromboembolism prophylaxis or treatment: 2.0-3.0 CARDIOLOGY Standard range: 2.0-3.0 High-intensity range: 2.5-3.5 Refer to indication-specific guidelines for appropriate target ranges for prosthetic heart valve replacement. Current interpretive data was last revised on 2019. Blood 05/08/2024 1:10 PM LOCAL TRUCK DRIVER 05/08/2024 1:20 PM LOCAL TRUCK DRIVER [employer] LAB BLOOD ORDERABLES Final Res ult Performing Organization Address [facility] Co de Phone Number [facility] [address] [place] [address] [place] [address] * Antibody screen (05/08/2024 1:10 PM LOCAL TRUCK DRIVER) Cody, indirect, Gel Interpretation Negative ABSC Blood 05/08/2024 1:10 PM LOCAL TRUCK DRIVER 05/08/2024 1:20 PM LOCAL TRUCK DRIVER Narrative RAY - 05/08/2024 2:00 PM LOCAL TRUCK DRIVER Is this test being ordered in advance for a procedure?->Yes Expected date of procedure:->05/22/24 Has the patient been transfused in the past 3 months?->No Has the patient been in the past 3 months?->No Heavenly Stratton DO LAB BLOOD BANK TEST ORDERABLES Final Result RAY [address] [facility] Department [place] [address] * Comprehensive metabolic panel (05/08/2024 1:10 PM LOCAL TRUCK DRIVER) Sodium 137 135 - 145 mmol/L Potassium, pl 4.1 3.3 - 4.9 mmol/L [facility] Chloride 104 97 - 110 mmol/L [facility] CO2 24 22 - 32 mmol/L [facility] Anion gap 9 2 - 15 mmol/L [facility] BUN 18 6 - 25 mg/dL [facility] Creatinine 0.70 0.60 - 1.10 mg/dL [facility] Glucose 97 70 - 199 mg/dL [facility] Comment: Interpretive Data Fasting glucose >/= 126 [...] 2022. Calcium 10.2 8.5 - 10.3 mg/dL [facility] Bilirubin, total 0.8 0.1 - 1.2 mg/dL [facility] Protein, pl 6.9 6.5 - 8.5 g/dL [facility] Albumin 4.4 3.5 - 5.0 g/dL [facility] Alk phos 43 40 - 130 Units/L [facility] ALT 19 7 - 45 Units/L [facility] AST 25 10 - 45 Units/L [facility] Blood 05/08/2024 1:10 PM LOCAL TRUCK DRIVER 05/08/2024 1:20 PM LOCAL TRUCK DRIVER Heavenly Stratton DO LAB BLOOD ORDERABLES Final Res ult RAY [address] [facility] Department [place] [address] * Pap and High Risk HPV and Genotyping (Cytology Component) (05/31/2023 11:17 AM LOCAL TRUCK DRIVER) Thin prep (Pap test) 05/31/2023 11:17 AM LOCAL TRUCK DRIVER 05/31/2023 7:41 PM LOCAL TRUCK DRIVER Narrative PATHOLOGY [facility] - 06/07/2023 7:14 AM LOCAL TRUCK DRIVER EPIC results best viewed via link to PDF [facility] [place] [address] Note to Patients: This report may contain [...] Gender: John : 1965 (Age: 57) Address: [address] [place] [id number] Hospital #: [id number] Service: DEFAULT Location: Patient Type: [facility] SPECIMEN Taken: 05/31/2023 Received: 05/31/2023 Accessioned: 06/01/2023 [...] this test have been verified by the [facility] Molecular Infectious Disease laboratory. Correlate with reported cytology results, as applicable. Interpretive data last revised 22 This specimen has been rescreened in accordance with this laboratory's Examination Scorer Program. [facility] [place]/06/07/2023 07:14 KB Meehan(ASCP) Report Electronically Reviewed and [...] clinical information and biopsy results as indicated. [facility] Clinical Laboratory Improvement Amendments (CLIA) mandate that cytologic and histologic results be correlated for laboratory food quality technician & improvement standards. FOR ALL HIGH-GRADE CASES [...] determined by the Surgical Pathology Department at [facility] as part of an ongoing corporate quality engineer program and in compliance with federally mandated [...] determined by the Surgical Pathology Department of [facility]. It has not been cleared or approved by the U. S. Food and Drug Administration. Cassidy Gutierrez MD LAB CYTOLOGY ORDERABLES F inal Result PATHOLOGY [facility] * (ABNORMAL) Screening Mammogram Bilateral W [...] Most Recently Relevant to Health Maintenance Insurance [facility] CHOICE [employer] HMO/PPO Address: [address] [address] [place] [address] [facility] HMO HEALTH [facility] HMO/PPO Address: [address] [place] [address] [facility] CHOICE PLUS [facility] HMO/PPO Address: [address] [address] [place] [address] Advance Directives For more information, please contact: [phone] * Full Code (Latest Code Status on File) Date Activated Date Inactivated Comments 05/22/2024 4:57 PM 05/25/2024 3:22 PM Care Teams Equipment Driver Relationship Specialty Start Date End Date Norma Orozco MD [address] [place] [id number] PCP - General Internal Medicine 04/03/24 Cassidy Gutierrez MD [address] [place] [address] Process Control Technician Obstetrics and Gynecology 05/08/24 Arthur Dockery MD [address] [place] [address] Consulting Physician Urology 05/08/24 Heavenly Stratton DO [address] [address] Consulting Physician Orthopedic Surgery 05/23/24
--- OUTSIDE RECORDS SUMMARY | 2024-06-20 10:32 | XMS_ITS | Clinical Summary ---
Author Organization [facility] Address [facility] [place] [address] Care Team Providers Care Computational Physicist Name Role Phone Norma Orozco MD Primary Care Provider +1- [phone] Allergies No known active allergies Medications azithromycin [...] anemia 12/11/2019 Closed fracture of temporal bone ([facility]/ C) 12/11/2019 Fracture of phalanx of toe of right foot 020 Laceration of bladder 12/11/2019 SAH (subarachnoid hemorrhage) ([facility]) 12/11/2019 SDH (subdural hematoma) ([facility]) 2019 Scalp laceration 12/11/2019 Trauma 12/10/2019 Cholecystitis [...] Department Care Team Description 04/24/2024 12:37 PM SAMPLE TESTER - 04/24/2024 3:26 PM SAMPLE TESTER Emergency [facility] Emergency Room [address] [place] [address] Frantz Bond MD Flank Pain Discharge Disposition: [...] Comments Blood Pressure 124/74 04/24/2024 2:00 PM SAMPLE TESTER Pulse 71 04/24/2024 12:43 PM SAMPLE TESTER Temperature 36.1 C (96.9 F) 04/24/2024 12:45 PM SAMPLE TESTER Respiratory Rate 18 04/24/2024 12:43 PM SAMPLE TESTER Oxygen Saturation 100% 04/24/2024 2:00 PM SAMPLE TESTER Inhaled Oxygen Concentration - - Weight 64 kg (141 lb) 04/24/2024 12:43 PM SAMPLE TESTER Height 167.6 cm (5' 6 ) 04/24/2024 12:43 PM SAMPLE TESTER Body Mass Index 22.76 04/24/2024 12:43 PM SAMPLE TESTER Plan of Treatment Health Maintenance Due Date [...] ABD+PEL KIDNEY STONE STAT 04/24/2024 2:08 PM SAMPLE TESTER COMPREHENSIVE METABOLIC PANEL STAT 04/24/2024 1:49 PM SAMPLE TESTER CBC W/DIFF AUTOMATED STAT 04/24/2024 1:49 PM SAMPLE TESTER URINALYSIS, AUTO, COMPLETE STAT 04/24/2024 12:53 PM SAMPLE TESTER HPV MRNA E6/E7 Routine 08/14/2016 5:21 PM CDT from Last 3 Months or Most Recently Relevant to Health Maintenance Results * CT ABD+PEL KIDNEY STONE (04/24/2024 2:08 PM SAMPLE TESTER) Anatomical Region Laterality Modality Abdomen Computed Tomogra phy 04/24/2024 2:30 PM SAMPLE TESTER Impressions 04/24/2024 2:36 PM SAMPLE TESTER IMPRESSION: 1. There is a 8 mm nonobstructing left renal stone, unchanged. No ureteric or bladder stones are identified. There is no hydronephrosis. 2. No CT evidence of bowel obstruction. 3. Moderate fecal burden within the colon, which was seen with constipation. 4. Status post cholecystectomy. Referred By: Interpreted By: Nino Mcmanus MD, 04/24/2024 2:30 PM Narrative 04/24/2024 2:36 PM SAMPLE TESTER [facility] [address] [facility] [address] [place] [id number] PROCEDURE: CT ABD+PEL KIDNEY STONE HISTORY: Left [...] Procedure Note Nino Mcmanus MD - 04/24/2024 [facility] [address] [facility] [place] [address] PROCEDURE: CT ABD+PEL KIDNEY STONE HISTORY: Left [...] (ABNORMAL) COMPREHENSIVE METABOLIC PANEL (04/24/2024 1:49 PM SAMPLE TESTER) GLUCOSE 93 70 - 99 MG/DL 04/24/2024 2:[address] [facility] BUN 18 7 - 18 MG/DL 04/24/2024 2:[address] [facility] CREATININE S/P/B 0.91 0.55 - 1.02 MG/DL 04/24/2024 2:[address] [facility] SODIUM S/P/B 141 136 - 145 MMOL/L 04/24/2024 2:[address] [facility] POTASSIUM S/P/B 4.0 3.5 - 5.1 MMOL/L 04/24/2024 2:[address] [facility] CHLORIDE S/P/B 104 100 - 108 MMOL/L 04/24/2024 2:[address] [facility] CO2 28.0 21 - 32 MMOL/L 04/24/2024 2:[address] [facility] CALCIUM S/P/B 9.8 8.5 - 10.1 MG/DL 04/24/2024 2:[address] [facility] BILIRUBIN TOTAL S/P/B 1.3(H) 0.2 - 1.2 MG/DL 04/24/2024 2:[address] [facility] TOTAL PROTEIN S/P/B 7.3 6.4 - 8.2 G/DL 04/24/2024 2:[address] [facility] ALBUMIN S/P/B 4.4 3.4 - 5.0 G/DL 04/24/2024 2:[address] [facility] AST 19 15 - 37 U/L 04/24/2024 2:[address] [facility] ALT 27 14 - 55 U/L 04/24/2024 2:[address] [facility] ALKALINE PHOSPHATASE S/P/B 41(L) 50 - 136 U/L 04/24/2024 2:[address] [facility] ANION GAP 9.0 5 - 15 MMOL/L 04/24/2024 2:[address] [facility] BUN CREATININE RATIO 19.8 6 - 26 04/24/2024 2:[address] [facility] A/G RATIO 1.5 1.0 - 2.0 RATIO 04/24/2024 2:[address] [facility] GFR ESTIMATE 74(L) >90 ML/MIN/1.7 3 M2 04/24/2024 2:[address] [facility] Comment: NOTE: eGFR is not calculated for patients <18 years of age. This is an estimated GFR calculation using the new CKD EPI creatinine equation without race and so does not require a correction factor for race. This estimated GFR should not be used for calculating drug doses. 04/24/2024 1:49 PM SAMPLE TESTER Frantz Bond MD LABORATORY Final Result [facility] [address] [place] [address], * (ABNORMAL) CBC W/DIFF AUTOMATED (04/24/2024 1:49 PM SAMPLE TESTER) WBC 7.14 4.4 - 11.0 x10'3/uL 04/24/2024 2:[address] [facility] RBC 4.27(L) 4.50 - 5.10 x10'6/uL 04/24/2024 2:[address] [facility] HGB 13.2 12.3 - 15.3 G/DL 04/24/2024 2:[address] [facility] HCT 40.4 35.9 - 44.6 % 04/24/2024 2:[address] [facility] MCV 94.6 80.0 - 96.0 FL 04/24/2024 2:[address] [facility] MCH 30.9 25.3 - 30.9 PG 04/24/2024 2:[address] [facility] MCHC 32.7 31.0 - 34.1 G/DL 04/24/2024 2:[address] [facility] RDW 13.7 12.4 - 15.1 % 04/24/2024 2:[address] [facility] PLT 297 151 - 353 x10'3/uL 04/24/2024 2:[address] [facility] MPV 10.3 9.6 - 12.0 FL 04/24/2024 2:[address] [facility] RBC MORPHOLOGY NORMAL 04/24/2024 2:[address] [facility] PLT MORPH. NORMAL 04/24/2024 2:[address] [facility] WBC MORPHOLOGY NORMAL 04/24/2024 2:[address] [facility] LYMPHOCYTES % 29.3 15.8 - 45.0 % 04/24/2024 2:[address] [facility] NEUTROPHILS % 63.3 42.1 - 71.9 % 04/24/2024 2:[address] [facility] MONOCYTES % 6.3 5.7 - 12.5 % 04/24/2024 2:[address] [facility] EOSINOPHILS 0.4 0.0 - 5.6 % 04/24/2024 2:[address] [facility] BASOPHILS 0.6 0.0 - 1.3 % 04/24/2024 2:[address] [facility] ABS. NEUTROPHILS 4.52 1.40 - 6.00 x10'3/uL 04/24/2024 2:[address] [facility] IMMATURE GRANS % 0.1 0.0 - 0.5 % 04/24/2024 2:[address] [facility] ABS. LYMPHOCYTES 2.09 0.80 - 4.70 x10'3/uL 04/24/2024 2:[address] [facility] 04/24/2024 1:49 PM SAMPLE TESTER us Frantz Bond MD LABORATORY Final Result [facility] [address] [place] [address], [place] [phone] * (ABNORMAL) Urinalysis, Auto, Complete (04/24/2024 12:53 PM SAMPLE TESTER) COLOR (U) YELLOW 04/24/2024 2:[address] [facility] TRANSPARENCY HAZY 04/24/2024 2:[address] [facility] SPECIFIC GRAVITY (U) >1.030(H) 1.000 - 1.030 04/24/2024 2:[address] [facility] U PH 6.0 5.0 - 9.0 04/24/2024 2:[address] [facility] LEUKOCYTES (U) TRACE(A) NEGATIVE 04/24/2024 2:[address] [facility] NITRITES NEGATIVE NEGATIVE 04/24/2024 2:[address] [facility] PROTEIN RANDOM (U) NEGATIVE NEGATIVE 04/24/2024 2:[address] [facility] GLUCOSE (U) NEGATIVE NEGATIVE 04/24/2024 2:[address] [facility] KETONES MG/DL (U) 1+(A) NEGATIVE 04/24/2024 2:[address] [facility] BILIRUBIN (U) NEGATIVE NEGATIVE 04/24/2024 2:[address] [facility] BLOOD (U) TRACE(A) NEGATIVE 04/24/2024 2:[address] [facility] WBC/HPF 5-10 0 - 5 /HPF 04/24/2024 2:[address] [facility] RBC/HPF 0-5 0 - 5 /HPF 04/24/2024 2:[address] [facility] EPI/HPF MODERATE /HPF 04/24/2024 2:[address] [facility] URINE SPECIMEN OBTAINED BY CLEAN CATCH PROCEDURE / Unknown 04/24/2024 12:53 PM SAMPLE TESTER Frantz Bond MD URINE ORDERABLES Final Result [facility] [address] [place] [address], [place] [phone] * HPV MRNA E6/E7 (08/14/2016 5:21 PM CDT) HPV MRNA E6/E7 SEE NOTE [facility] OUP TO EPIC CONVERSION Comment: Not Detected Reference range: NOT DETECTED This test was performed using the APTIMA(R) HPV Assay ([employer] This assay detects E6/E7 viral messenger RNA (mRNA) from 14 high-risk HPV types (16,18,31,33,35,39,45,51, 52,56,58,59,66,68). For additional information please refer to: http://education.Clear[employer] Data/faq/DXZ034n3 (This link is being provided for informational/ educational purposes only.) Test Performed by [facility], [facility], [address] [place] [id number] Keith Rico M.D., Ph.D., Director of Laboratories , [facility] [id number] 08/14/2016 5:21 PM CDT 08/14/2016 5:21 PM CDT Narrative [facility] TO EPIC CONVERSION - 08/14/2016 5:21 PM CDT [AUTO]: This test was reviewed. Ria Parr PA-C PATHOLOGY/CYTOLOGY ORDERAB LES Final Result [facility] TO EPIC CONVERSION from Last 3 Months or Most Recently Relevant to Health Maintenance Insurance [facility] Advance Directives * Full Code (Latest Code Status on File) Date Activated Date Inactivated Comments 11/27/2019 3:45 PM 11/28/2019 1:24 PM * Full Code Date Activated Date Inactivated Comments 11/26/2019 2:17 AM 11/27/2019 3:45 PM Care Teams Computational Physicist Relationship Specialty Start Date End Date Norma Orozco MD [address] [place] [address] PCP - General INTERNAL MEDICINE 04/24/24
--- OUTSIDE RECORDS SUMMARY | 2024-06-20 10:32 | XMS_ITS | Encounter Summary ---
Author Organization [facility] Address [facility] [place] [address] Care Team Providers Care Test Borer Name Role Phone Ria Parr PA-C Primary Care Provider +1- [phone] Norma Orozco MD Primary Care Provider +1- [phone] Encounter Details Date Type Department Care Team (Late st Contact Info) Description 05/29/2015 Abstract [facility] CONVERSION [address] [place] [address] , Generic Conversion, Social History Tobacco Use [...] Rule Out 03/08/2020 03/08/2020 03/11/2020 7:01 PM DIRECTOR OF PUBLIC SAFETY COVID-19 Confirmed 03/08/2020 03/08/2020 12:36 AM DIRECTOR OF PUBLIC SAFETY COVID-19 Rule Out 11/07/2020 11/07/2020 11/09/2020 7:26 PM CDT documented as of this encounter Care Teams Test Borer Relationship Specialty Start Date End Date Ria Parr PA-C [address] [facility] [address] [place] [address] PCP - General PHYSICIAN FARMWORKER [employer]ARM 10/17/18 04/23/24 Norma Orozco MD [address] [place] [address] PCP - General INTERNAL MEDICINE 04/24/24 documented as of this encounter
== END 2024-06-20 09:29 | disposition home or self-care (01) ==
LOC: ANHSURGERY 09:32
PROVIDERS: PCP Internal Medicine; Visit Provider Urology
DX: N20.0 Calculus of kidney (principal)
CPT/HCPCS: 36415; 85610; 85730; 87086

== ENCOUNTER 2024-06-23 00:32 | Day surgery (SDC) | payer OTHER, SELFPAY ==
[2024-06-15 15:36] VITALS: BMI 25.0
--- NOTE | 2024-06-15 15:37 | PC.NURSE ---
Report to the Outpatient Waiting Room, entrance under the green pavilion located off [facility], at time _0930_ on date _[id number]_. Planned Procedure Time: _1130_.? Time changes happen often and if your time is changed the preop area will call you the afternoon before. - You and your visitor will be asked to self-screen and do not enter if you have any COVID symptoms. Please call surgeon if you need to reschedule. - A mask is optional within the hospital at this time. Patients may have clear liquids (water, carbonated beverages, clear teas, apple juice) until 3 hours prior to surgery with a maximum of 20 ounces. - No food from midnight until time of surgery and no smoking, or chewing tobacco (or any form of nicotine). No chewing gum, candy or mints. Take only the following medications with a SIP of water on the morning of surgery: __None____ DO NOT STOP ANY OF YOUR OTHER PRESCRIPTION MEDICATIONS PRIOR TO SURGERY EXCEPT THE FOLLOWING Hold all vitamins and supplements for 3 days per anesthesiologist. Medications to discontinue per physician ___ Date to take last dose Please no make-up, nail faroese, hairspray, perfume, deodorant, or body powder the day of surgery.? No jewelry (including any body piercings) or valuables the day of surgery, leave them at home.? Please take a shower or bath the night before, or the morning of, surgery with an antibacterial soap.? Wear comfortable, loose fitting clothing.? - Jewelry must be removed prior to entering the operating room.? Rings and piercings that are not removed may be cut off. - The hospital will not accept responsibility for valuables.? - Please leave all valuables, including medications, at home the day of surgery. If you are going home after surgery, a licensed new autos delivery driver must drive you home.? - NO public transportation without another adult if you receive anesthesia. - We recommend that an adult stay with you for 24 hours following discharge. - We also recommend that you do not drive, make important decision, drink alcoholic beverages, or take any drugs that were not prescribed by your health care provider for at least 24 hours after your discharge time. Follow any additional instructions given to you from your surgeon. Telephone instructions given to __Becky__and asked if any additional questions and then verbalized understanding. Patient advised to call surgeon office or pre surgery nurse liaison [phone] if any additional questions.
[2024-06-23] VITALS (7 sets, daily range): BP systolic 130–147; BP diastolic 75–92; PULSE 56–73; RESP 14–16; TEMP 36.2–36.6; O2SAT 97–100; BMI 25.6
[2024-06-23] MEDS: LACTATED RINGERS 1,000 ML 30 ML IV CONT ×2 (10:25→13:27)
--- NOTE | 2024-06-23 12:19 | WPDHPUPDATE1 ---
History and Physical Update Update Date/Time: 06/23/24 12:19 History and Physical has been reviewed, including an updated exam of the patient. There are NO changes in the patient's condition. Risks, benefits, and alternatives have been discussed and questions answered. Patient agrees to proceed with procedure. Proceed with left renal eswl
--- NOTE | 2024-06-23 12:30 | WPDANESEPPF ---
Anes - Initial Pre Proc Eval Procedure: Operation Date: 06/23/24 11:30 Proposed Procedures p Left Extracorporeal Shock Wave Lithotripsy - Honorio Iverson MD Date/Time: 06/23/24 12:30 Surgeon: Honorio Iverson MD Pre Op Diagnosis: Lt Ureteral Stone Patient Data Age: 58 Gender: F Height: 1.68 m Weight: 72 kg Last Vital Signs Temp 97.2 F L 06/23/24 10:28 Pulse 63 06/23/24 10:28 Resp 16 06/23/24 10:28 BP 133/79 06/23/24 10:28 Pulse Ox 100 06/23/24 10:28 O2 Del Method Room Air 06/23/24 10:28 Allergies Allergy/AdvReac Type Severity Reaction Status Date / Time No Known Allergies Allergy Verified 06/23/24 10:26 Home Medications ?Medication ?Instructions ?Recorded ?Confirmed ?Type No Home Medications 06/15/24 06/15/24 History Patient hx anesthesia problems: other (Pt had low BP after hip sx recently at [facility], records not available. ) Family hx anesthesia problems: other Results Review: All pre-operative results and documents have been reviewed as part of the pre-operative evaluation. [facility] Surgical History Surgical History History of cholecystectomy History of bladder repair surgery Family History Family History Father Hypertension Heart disease Cerebrovascular accident Social History Social History Smoking status: Never smoker Alcohol intake: current Drinks per week: 5 Living arrangements: with family Spiritual care concerns: No Anes - Eval Final PreProcedure Day of Procedure 06/23/24 12:30 Patient weight: overweight Lungs: normal air movement Airway: Mallampati scale class II Neurological: alert and oriented Last oral intake: >/= 8 hours ASA classification: I Emergent: no Anesthetic plan: proceed Anesthesia type and monitoring: general LMA and standard monitoring Results Review: All pre-operative results and documents have been reviewed as part of the pre-operative evaluation. Active, good health overall. Informed Consent: The patient's anesthetic plan and its attendant risks and benefits were discussed with the patient/family/POA. Questions were solicited and answers provided to the satisfaction of the patient/family/POA.
[2024-06-23] MEDS: ceFAZolin 2 GM/D5W 50 ML 2 GM/50 ML BAG IVPB (12:51)
--- NOTE | 2024-06-23 13:23 | W.PM.PROC2 ---
Procedure Note - Detailed Date of Procedure 06/23/24 Pre-op Diagnosis LEFT RENAL CALCULUS Post-op Diagnosis Same Procedure Performed LITHOTRIPSY OF LEFT RENAL CALCULUS Surgeon Honorio Iverson MD Anesthesia General Description of Procedure PATIENT WAS TAKEN THE OPERATIVE SUITE CORRECTLY IDENTIFIED. ONCE ANESTHESIA WAS OBTAINED THE STONE WAS LOCALIZED IN BOTH PLANES. TWO THOUSAND FIVE HUNDRED SHOCKS WERE GIVEN TO THE LEFT RENAL STONE. PATIENT TOLERATED PROCEDURE WELL WITHOUT ANY COMPLICATIONS THE WAS TAKEN RECOVERY STABLE CONDITION. SHE WILL FOLLOW-UP IN 7-10 DAYS WITH KUB. THIS COMPLETES DICTATION. PLEASE SEND A COPY OF OP NOTE TO MY OFFICE Estimated Blood Loss 0 Drains No Packing No Pathology None sent Complications No immediate complications Condition Stable Disposition PACU
== END 2024-06-23 14:50 | disposition home or self-care (01) ==
PROVIDERS: PCP Internal Medicine; Visit Provider Urology
PROC: (CPT 50590; principal; 2024-06-23 11:30)
DX: N20.0 Calculus of kidney (principal)
CPT/HCPCS: 50590; 74018; J0690; J1100; J2250; J2405; J2704; J3010; J7120

== ENCOUNTER 2024-07-06 13:38 | Outpatient (CLI) | payer OTHER, SELFPAY ==
--- NOTE | ~2024-07-06 | XR_ITS ---
XR abdomen/kub 1V Ordering provider: Arthur Dockery MD History: . lt ureteral kidney stone . Comparison: June 23, 2024 FINDINGS: BOWEL: Nonobstructive bowel gas pattern. ORGANOMEGALY: None. SIGNIFICANT PATHOLOGIC CALCIFICATIONS: Stone is seen in the left kidney lower pole minimally changed. OTHER: No free air is seen under the diaphragm. Right hip total arthroplasty. Degenerative spine. Left hip mild to moderate osteoarthritic changes. IMPRESSION: NO ACUTE ABDOMINAL FINDINGS. Left kidney lower pole stone. Reviewed, dictated and finalized at location A.
--- OUTSIDE RECORDS SUMMARY | 2024-07-06 15:28 | XMS_ITS | Encounter Summary ---
Author Organization [facility] Address [facility] [place] [address] Care Team Providers Care Pathology Supervisor Name Role Phone Ria Parr PA-C Primary Care Provider +1- [phone] Norma Orozco MD Primary Care Provider +1- [phone] Encounter Details Date Type Department Care Team (Late st Contact Info) Description 01/19/2018 Abstract [facility] Ria Parr PA-C [address] [address] Social History Tobacco Use Types Packs/Day Years [...] CDT Jan 19, 2018 Julieth Abrams [address] [place] [address] Dear Julieth Abrams, Thank you for choosing [facility] for your health care needs. We appreciate the opportunity to help you maintain your well being. You recently had your mammogram done. Your results came back normal. Repeat mammogram in 1 year. Please remember to follow up as discussed at your last appointment. If you have any questions please feel free to call the office at [phone], Option #3 or Option #1 to make an appointment to discuss these results. Respectfully Yours, Electronically Signed by: Ria GARCIA Cc: Patients Medical Record ATION COUNSELOR documented in this encounter Plan of Treatment Not on file documented as of this encounter Visit Diagnoses Not on filedocumented in this encounter Additional Health Concerns Infection Onset Date Last Indicated Resolved Time COVID-19 Rule Out 11/27/2019 11/27/2019 11/27/2019 12:32 PM CDT COVID-19 Rule Out 03/08/2020 03/08/2020 03/11/2020 7:01 PM EDUCATION COUNSELOR COVID-19 Confirmed 03/08/2020 03/08/2020 12:36 AM EDUCATION COUNSELOR COVID-19 Rule Out 11/07/2020 11/07/2020 11/09/2020 7:26 PM CDT documented as of this encounter Care Teams Pathology Supervisor Relationship Specialty Start Date End Date Ria Parr PA-C [address] [address] PCP - General PHYSICIAN LIBRARY MEDIA ASSISTANT 10/17/18 04/23/24 Norma Orozco MD [address] [place] [address] PCP - General INTERNAL MEDICINE 04/24/24 documented as of this encounter
--- OUTSIDE RECORDS SUMMARY | 2024-07-06 15:28 | XMS_ITS | Referral Summary ---
Author Organization [facility] Address [address] [place] [address] Care Team Providers Care Rack Puller Name Role Phone Norma Orozco MD Primary Care Provider Source Comments [facility],non-owned Affiliates and Associated Physician Practices is amultiple site organization consisting of ambulatory clinics and hospital sitesin [place], [place], [place] and [place]. This disclosure is being madepursuant to the Care Everywhere program and may not contain all information available regarding this patient. Last updated 18.[facility] Allergies No known active allergies Medications Be [...] Comments Blood Pressure 127/82 02/26/2020 1:16 PM MEDIA ASSISTANT Pulse 83 02/26/2020 1:16 PM MEDIA ASSISTANT Temperature 36.3 C (97.4 F) 01/23/2020 9:57 AM CDT Respiratory Rate 16 01/23/2020 9:57 AM CDT Oxygen Saturation 99% 01/23/2020 9:57 AM CDT Inhaled Oxygen Concentration - - Weight 84.6 kg (186 lb 9.6 oz) 01/23/2020 9:57 A M CDT Height 167.6 cm (5' 6 ) 02/26/2020 1:16 PM MEDIA ASSISTANT Body Mass Index 30.12 01/23/2020 9:57 AM [...] - 26 mg/dL 12/14/2019 2:59 AM CDT [facility] Creatinine 0.8 0.6 - 1.2 mg/dL 12/14/2019 2:59 AM CDT [facility] Sodium 140 136 - 145 mmol/L 12/14/2019 2:59 AM CDT [facility] Potassium 3.9 3.5 - 4.5 mmol/L 12/14/2019 2:59 AM [facility] Chloride 104 98 - 107 mmol/L 12/14/2019 2:59 AM T [facility] CO2 27 22 - 29 mmol/L 12/14/2019 2:59 AM CDT [facility] Glucose 97 70 - 115 mg/dL 12/14/2019 2:59 AM T [facility] Calcium 9.0 8.4 - 10.2 mg/dL 12/14/2019 2:59 AM T [facility] Anion Gap 13 8 - 18 12/14/2019 2:59 AM [facility] BUN/Creatinine Ratio 19 7 - 23 12/14/2019 2:59 AM [facility] Osmolality Calculated 291 270 - 300 mOsm/kg 12/14/2019 2:59 AM [facility] eGFR >60 >60 mL/min/1.7 3 m2 12/14/2019 2:59 AM T [facility] Blood BLOOD SPECIMEN / Unknown Lab Venipuncture / Unknown 12/14/2019 2:20 AM CDT 12/14/2019 2:36 AM CDT Dany Avery MD LAB - CHEMISTRY RODRICK Wolff Organization Address City/State/ZIP Co de Phone Number [address] [address], [facility] [phone] from Last 3 Months or Most Recently Relevant to Health Maintenance Advance Directives * Full Code (Latest Code Status on File) Date Activated Date Inactivated Comments 12/10/2019 6:54 AM 12/14/2019 5:44 PM * Full Code Date Activated Date Inactivated Comments 12/10/2019 6:37 AM 12/10/2019 6:54 AM Care Teams Rack Puller Relationship Specialty Start Date End Date Norma Orozco MD PCP - General Internal Medicine 02/26/20
--- OUTSIDE RECORDS SUMMARY | 2024-07-06 15:28 | XMS_ITS | Encounter Summary ---
Author Organization [facility] Address [facility] [place] [address] Care Team Providers Care Dining Room Helper Name Role Phone Ria Parr PA-C Primary Care Provider +1- [phone] Norma Orozco MD Primary Care Provider +1- [phone] Encounter Details Date Type Department Care Team (Late st Contact Info) Description 08/05/2018 AD OPERATIONS COORDINATOR ONLY [facility] Medical [facility] Priority Care - [address] [place] [address] Scanned, Documents Social History Tobacco [...] 7:23 AM CDT JULIETH CARPENTER MD: Acct: [id number] Admit/Service Date: 08/04/18 Discharge Date: 08/04/18 : 1965 Pt Type: DEP SDC Sex: F Ord Site: [facility] OPERATIVE RECORD Date of Operation: 08/04/2018 Surgeon: [...] DB:crystal A A cc: Bryant Darnell PA-C [id number] documented in this encounter Plan of Treatment Not on file documented as of this encounter Visit Diagnoses Not on filedocumented in this encounter Additional Health Concerns Infection Onset Date Last Indicated Resolved Time COVID-19 Rule Out 11/27/2019 11/27/2019 11/27/2019 12:32 PM CDT COVID-19 Rule Out 03/08/2020 03/08/2020 03/11/2020 7:01 PM STRATEGIC SOURCING CONSULTANT COVID-19 Confirmed 03/08/2020 03/08/2020 12:36 AM STRATEGIC SOURCING CONSULTANT COVID-19 Rule Out 11/07/2020 11/07/2020 11/09/2020 7:26 PM CDT documented as of this encounter Care Teams Dining Room Helper Relationship Specialty Start Date End Date Ria Parr PA-C [address] [facility] [address] [place] [address] PCP - General PHYSICIAN MARKET SUPERINTENDENT 10/17/18 04/23/24 Norma Orozco MD [address] [place] [address] PCP - General INTERNAL MEDICINE 04/24/24 documented as of this encounter
--- OUTSIDE RECORDS SUMMARY | 2024-07-06 15:28 | XMS_ITS | Clinical Summary ---
Author Organization [facility] Address [facility] [place] [address] Care Team Providers Care Vine Pruner Name Role Phone Norma Orozco MD Primary Care Provider [phone] Allergies No known active allergies Medications azithromycin [...] anemia 12/11/2019 Closed fracture of temporal bone 12/11/2019 Fracture of phalanx of toe of right foot 020 Laceration of bladder 12/11/2019 SAH (subarachnoid hemorrhage) ([facility]) 12/11/2019 SDH (subdural hematoma) 12/11/2019 Scalp laceration 12/11/2019 Trauma 12/10/2019 Cholecystitis 11/26/2019 [...] Department Care Team Description 04/24/2024 12:37 PM WASHERY BOSS - 04/24/2024 3:26 PM WASHERY BOSS Emergency [facility] Emergency Room [address] [id number] Frantz Bond MD Flank Pain Discharge Disposition: [...] Comments Blood Pressure 124/74 04/24/2024 2:00 PM WASHERY BOSS Pulse 71 04/24/2024 12:43 PM WASHERY BOSS Temperature 36.1 C (96.9 F) 04/24/2024 12:45 PM WASHERY BOSS Respiratory Rate 18 04/24/2024 12:43 PM WASHERY BOSS Oxygen Saturation 100% 04/24/2024 2:00 PM WASHERY BOSS Inhaled Oxygen Concentration - - Weight 64 kg (141 lb) 04/24/2024 12:43 PM WASHERY BOSS Height 167.6 cm (5' 6 ) 04/24/2024 12:43 PM WASHERY BOSS Body Mass Index 22.76 04/24/2024 12:43 PM WASHERY BOSS Plan of Treatment Health Maintenance Due Date [...] ABD+PEL KIDNEY STONE STAT 04/24/2024 2:08 PM WASHERY BOSS COMPREHENSIVE METABOLIC PANEL STAT 04/24/2024 1:49 PM WASHERY BOSS CBC W/DIFF AUTOMATED STAT 04/24/2024 1:49 PM WASHERY BOSS URINALYSIS, AUTO, COMPLETE STAT 04/24/2024 12:53 PM WASHERY BOSS HPV MRNA E6/E7 Routine 08/14/2016 5:21 PM CDT from Last 3 Months or Most Recently Relevant to Health Maintenance Results * CT ABD+PEL KIDNEY STONE (04/24/2024 2:08 PM WASHERY BOSS) Anatomical Region Laterality Modality Abdomen Computed Tomogra phy 04/24/2024 2:30 PM WASHERY BOSS Impressions 04/24/2024 2:36 PM WASHERY BOSS IMPRESSION: 1. There is a 8 mm nonobstructing left renal stone, unchanged. No ureteric or bladder stones are identified. There is no hydronephrosis. 2. No CT evidence of bowel obstruction. 3. Moderate fecal burden within the colon, which was seen with constipation. 4. Status post cholecystectomy. Referred By: Interpreted By: Nino Mcmanus MD, 04/24/2024 2:30 PM Narrative 04/24/2024 2:36 PM WASHERY BOSS [facility] [address] [facility] [place] [address] PROCEDURE: CT ABD+PEL KIDNEY STONE HISTORY: Left [...] Procedure Note Nino Mcmanus MD - 04/24/2024 [facility] [address] [facility] [place] [address] PROCEDURE: CT ABD+PEL KIDNEY STONE HISTORY: Left [...] (ABNORMAL) COMPREHENSIVE METABOLIC PANEL (04/24/2024 1:49 PM WASHERY BOSS) GLUCOSE 93 70 - 99 MG/DL 04/24/2024 2:13 PM WASHERY BOSS [facility] BUN 18 7 - 18 MG/DL 04/24/2024 2:13 PM [facility] CREATININE S/P/B 0.91 0.55 - 1.02 MG/DL 04/24/2024 2:13 PM WASHERY BOSS [facility] SODIUM S/P/B 141 136 - 145 MMOL/L 04/24/2024 2:13 PM [facility] POTASSIUM S/P/B 4.0 3.5 - 5.1 MMOL/L 04/24/2024 2:13 PM [facility] CHLORIDE S/P/B 104 100 - 108 MMOL/L 04/24/2024 2:13 PM [facility] CO2 28.0 21 - 32 MMOL/L 04/24/2024 2:13 PM [facility] CALCIUM S/P/B 9.8 8.5 - 10.1 MG/DL 04/24/2024 2:13 PM [facility] BILIRUBIN TOTAL S/P/B 1.3(H) 0.2 - 1.2 MG/DL 04/24/2024 2:13 PM [facility] TOTAL PROTEIN S/P/B 7.3 6.4 - 8.2 G/DL 04/24/2024 2:13 PM [facility] ALBUMIN S/P/B 4.4 3.4 - 5.0 G/DL 04/24/2024 2:13 PM [facility] AST 19 15 - 37 U/L 04/24/2024 2:13 PM [facility] ALT 27 14 - 55 U/L 04/24/2024 2:13 PM [facility] ALKALINE PHOSPHATASE S/P/B 41(L) 50 - 136 U/L 04/24/2024 2:13 PM [facility] ANION GAP 9.0 5 - 15 MMOL/L 04/24/2024 2:13 PM [facility] BUN CREATININE RATIO 19.8 6 - 26 04/24/2024 2:13 PM [facility] A/G RATIO 1.5 1.0 - 2.0 RATIO 04/24/2024 2:13 PM [facility] GFR ESTIMATE 74(L) >90 ML/MIN/1.7 3 M2 04/24/2024 2:13 PM [facility] Comment: NOTE: eGFR is not calculated for patients <18 years of age. This is an estimated GFR calculation using the new CKD EPI creatinine equation without race and so does not require a correction factor for race. This estimated GFR should not be used for calculating drug doses. 04/24/2024 1:49 PM WASHERY BOSS Frantz Bond MD LABORATORY Final Result [facility] [address] [place] [address], * (ABNORMAL) CBC W/DIFF AUTOMATED (04/24/2024 1:49 PM WASHERY BOSS) WBC 7.14 4.4 - 11.0 x10'3/uL 04/24/2024 2:01 PM [facility] RBC 4.27(L) 4.50 - 5.10 x10'6/uL 04/24/2024 2:01 PM [facility] HGB 13.2 12.3 - 15.3 G/DL 04/24/2024 2:01 PM [facility] HCT 40.4 35.9 - 44.6 % 04/24/2024 2:01 PM [facility] MCV 94.6 80.0 - 96.0 FL 04/24/2024 2:01 PM [facility] MCH 30.9 25.3 - 30.9 PG 04/24/2024 2:01 PM [facility] MCHC 32.7 31.0 - 34.1 G/DL 04/24/2024 2:01 PM [facility] RDW 13.7 12.4 - 15.1 % 04/24/2024 2:01 PM [facility] PLT 297 151 - 353 x10'3/uL 04/24/2024 2:01 PM [facility] MPV 10.3 9.6 - 12.0 FL 04/24/2024 2:01 PM [facility] RBC MORPHOLOGY NORMAL 04/24/2024 2:01 PM [facility] PLT MORPH. NORMAL 04/24/2024 2:01 PM [facility] WBC MORPHOLOGY NORMAL 04/24/2024 2:01 PM [facility] LYMPHOCYTES % 29.3 15.8 - 45.0 % 04/24/2024 2:01 PM [facility] NEUTROPHILS % 63.3 42.1 - 71.9 % 04/24/2024 2:01 PM [facility] MONOCYTES % 6.3 5.7 - 12.5 % 04/24/2024 2:01 PM [facility] EOSINOPHILS 0.4 0.0 - 5.6 % 04/24/2024 2:01 PM [facility] BASOPHILS 0.6 0.0 - 1.3 % 04/24/2024 2:01 PM [facility] ABS. NEUTROPHILS 4.52 1.40 - 6.00 x10'3/uL 04/24/2024 2:01 PM [facility] IMMATURE GRANS % 0.1 0.0 - 0.5 % 04/24/2024 2:01 PM [facility] ABS. LYMPHOCYTES 2.09 0.80 - 4.70 x10'3/uL 04/24/2024 2:01 PM [facility] 04/24/2024 1:49 PM WASHERY BOSS Frantz Bond MD LABORATORY Final Result [facility] [address] [place] [address], [place] [phone] * (ABNORMAL) Urinalysis, Auto, Complete (04/24/2024 12:53 PM WASHERY BOSS) COLOR (U) YELLOW 04/24/2024 2:06 PM [facility] TRANSPARENCY HAZY 04/24/2024 2:06 PM [facility] SPECIFIC GRAVITY (U) >1.030(H) 1.000 - 1.030 04/24/2024 2:06 PM [facility] U PH 6.0 5.0 - 9.0 04/24/2024 2:06 PM [facility] LEUKOCYTES (U) TRACE(A) NEGATIVE 04/24/2024 2:06 PM [facility] NITRITES NEGATIVE NEGATIVE 04/24/2024 2:06 PM [facility] PROTEIN RANDOM (U) NEGATIVE NEGATIVE 04/24/2024 2:06 PM [facility] GLUCOSE (U) NEGATIVE NEGATIVE 04/24/2024 2:06 PM [facility] KETONES MG/DL (U) 1+(A) NEGATIVE 04/24/2024 2:06 PM [facility] BILIRUBIN (U) NEGATIVE NEGATIVE 04/24/2024 2:06 PM [facility] BLOOD (U) TRACE(A) NEGATIVE 04/24/2024 2:06 PM [facility] WBC/HPF 5-10 0 - 5 /HPF 04/24/2024 2:06 PM [facility] RBC/HPF 0-5 0 - 5 /HPF 04/24/2024 2:06 PM [facility] EPI/HPF MODERATE /HPF 04/24/2024 2:06 PM [facility] URINE SPECIMEN OBTAINED BY CLEAN CATCH PROCEDURE / Unknown 04/24/2024 12:53 PM WASHERY BOSS Frantz Bond MD URINE ORDERABLES Final Result [facility] [address] [place] [address], * HPV MRNA E6/E7 (08/14/2016 5:21 PM CDT) HPV MRNA E6/E7 SEE NOTE [facility] OUP TO EPIC CONVERSION Comment: Not Detected Reference range: NOT DETECTED This test was performed using the APTIMA(R) HPV Assay ([employer] This assay detects E6/E7 viral messenger RNA (mRNA) from 14 high-risk HPV types (16,18,31,33,35,39,45,51, 52,56,58,59,66,68). For additional information please refer to: http://education.Mandoyo/faq/FEN738q9 (This link is being provided for informational/ educational purposes only.) Test Performed by [facility], [address] [place] [address] Keith Rico M.D., Ph.D., Director of Laboratories , [facility] [id number] 08/14/2016 5:2 1 PM CDT 08/14/2016 5:21 PM CDT Narrative [facility] TO EPIC CONVERSION - 08/14/2016 5:21 PM CDT [AUTO]: This test was reviewed. us Ria Parr PA-C PATHOLOGY/CYTOLOGY ORDERAB LES Final Result [facility] TO EPIC CONVERSION from Last 3 Months or Most Recently Relevant to Health Maintenance Insurance [facility] Advance Directives * Full Code (Latest Code Status on File) Date Activated Date Inactivated Comments 11/27/2019 3:45 PM 11/28/2019 1:24 PM * Full Code Date Activated Date Inactivated Comments 11/26/2019 2:17 AM 11/27/2019 3:45 PM Care Teams Vine Pruner Relationship Specialty Start Date End Date Norma Orozco MD [address] [place] [id number] PCP - General INTERNAL MEDICINE 04/24/24
--- OUTSIDE RECORDS SUMMARY | 2024-07-06 15:28 | XMS_ITS | Encounter Summary ---
Author Organization [facility] Address [address] [place] [address] Care Team Providers Care Lace Inspector Name Role Phone Norma Orozco MD Primary Care Provider Cassidy Gutierrez MD Unavailable [phone] Arthur Dockery MD Unavailable [phone] Heavenly Stratton DO Unavailable [phone] Reason for Referral * Diagnostic Imaging (Routine) - Closed Specialty Diagnoses / Procedures Referred By Cecille adams Referred To Contact Diagnoses Primary osteoarthritis of right hip Procedures XR Hip Right W Pelvis Min 2 To 3 Views Heavenly Stratton DO [address] [facility] [address] [place] [place] [address] Phone: tel: fax: [address] [phone] Referral ID Status Reason Start Date Expiration Date Visits Re quested Visits Authorized [id number] Closed 06/27/2024 07/27/2025 1 1 Reason for Visit * Diagnostic Imaging (Routine) - Closed Specialty Diagnoses / Procedures Referred By Cecille adams Referred To Contact Diagnoses Primary osteoarthritis of right hip Procedures XR Hip Right W Pelvis Min 2 To 3 Views Heavenly Stratton DO [address] [place] [address] Phone: tel: fax: [facility] [address] [place] [phone] Referral ID Status Reason Start Date Expiration Date Visits Re quested Visits Authorized [id number] Closed 06/27/2024 07/27/2025 1 1 Encounter Details Date Type Department Care Team (Latest Contact Info) Description 07/06/2024 9:02 AM CDT Hospital Encounter [facility] MOB 1 DIAG IMG [address] [place] [address] Primary osteoarthritis of right hip Social History Tobacco Use Types Packs/Day Years Used Date Smoking Tobacco: Never Smokeless Tobacco: Never Alcohol Use Standard Drinks/Week Comments Yes 0 (1 standard drink = 0.6 oz pur e alcohol) [facility] Utilities Answer Date Recorded In the past 12 months has [employer] gas, oil, or water [employer] threatened to shut off services in your [...] 05/23/2024 How often do you attend chur or church services? Never 05/23/2024 Do you belong to any clubs o r organizations such as holiness groups, unions, fraternal or athletic groups, or [...] any time in the past 12 m [facility], were you homeless or living in a mcfp (including now)? No 05/23/2024 Personal Safety Answer Date Recorded Have you ever been in or are you currently in a harmful physical or emotional relationship or is someone making you feel afraid or unsafe? Denies 05/22/2024 Comments No Sex and Gender Information Value Date Recorded Sex Assigned at Not on file Legal Sex Female 1:15 AM EXECUTIVE DIRECTOR OF NURSING Gender Identity Not on file Sexual Orientation Not on file documented as of this encounter Plan of Treatment Pending Results Name Type Priority Associated Diagnoses Date /Time XR Hip Right W Pelvis Min 2 To 3 Views Imaging Schedule Routine, Read Routine (OP Routine) Primary osteoarthritis of right hip 07/06/2024 9:07 AM CDT Scheduled Orders Name Type Priority Associated Diagnoses Orde r Schedule XR Hip Right W Pelvis Min 2 To 3 Views Imaging Schedule Routine, Read Routine (OP Routine) Primary osteoarthritis of right hip Once for 1 Occurrences starting 07/06/2024 until 07/06/2024 documented as of this encounter Visit Diagnoses Diagnosis Primary osteoarthritis of right hip documented in this encounter Care Teams Lace Inspector Relationship Specialty Start Date End Date Norma Orozco MD [facility] [address] [place] [address] PCP - General Internal Medicine 04/03/24 Cassidy Gutierrez MD [address] [place] [address] [address] [place] [address] Glue Drier Operator Obstetrics and Gynecology 05/08/24 Arthur Dockery MD [address] [facility] [address] [place] [address] [address] [place] [address] Consulting Physician Urology 05/08/24 Heavenly Stratton DO [address] [address] Consulting Physician Orthopedic Surgery 05/23/24 documented as of this encounter
--- OUTSIDE RECORDS SUMMARY | 2024-07-06 15:28 | XMS_ITS | Referral Summary ---
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 comment 1 Use This Result CERNER MH Blood 05/22/2024 6:30 PM LASER OPERATOR 05/22/2024 6:30 PM LASER OPERATOR us Heavenly Stratton DO LAB POCT ORDERABLES - DEVICE F inal Result RAY [address] [facility] [place] [address] * XR Hip Right 2 or 3 Views (05/22/2024 2:10 PM LASER OPERATOR) Anatomical Region Laterality Modality Lower Extremities, Hip, Pelvis Right C omputed Radiography 05/22/2024 2:23 PM LASER OPERATOR Narrative 05/22/2024 2:25 PM LASER OPERATOR EXAM DESCRIPTION: XR HIP RIGHT 2 [...] Jose Schafer M.D. KN T: Report ID: [id number] Reading Location: [id number] Procedure Note Jose Schafer MD - 05/22/2024 [...] Jose Schafer M.D. KN T: Report ID: [id number] Reading Location: [id number] Leenabe Wolfe RADHA IMG XR PROCEDURES Final Result * FL Fluoroscopy < 1 Hour (05/22/2024 1:30 PM LASER OPERATOR) Narrative CARROL_[email or web address]_MHE - 05/22/2024 1:31 PM LASER OPERATOR The images from this study are not interpreted by Radiology. Please refer to the physician's procedure / OR operative note. Heavenly Stratton DO IMG FLUOROSCOPY PROCEDURES Fin al Result Performing Organization Address City/State/[facility] Co de Phone Number [email or web address] * NE AN ELECTIVE ENDOTRACHEAL AIRWAY, NE AN PROCEDURE PLACEHOLDER (05/22/2024 12:18 PM LASER OPERATOR) Narrative Susan Bob MD - 05/22/2024 12:18 PM LASER OPERATOR Susan Bob MD 05/22/2024 12:18 PM [...] / Rh Confirmation Testing (05/22/2024 9:44 AM LASER OPERATOR) ABO/Rh Confirmation O Positive MHB Blood 05/22/2024 9:44 AM LASER OPERATOR 05/22/2024 9:47 AM LASER OPERATOR Heavenly Stratton DO LAB BLOOD ORDERABLES Final Res ult RAY [address] [facility] of Laboratories [place], [place] [id number] [facility] * ECG 12 lead (05/08/2024 1:20 PM LASER OPERATOR) Ventricular Rate EKG/Min 53 BPM [facility] Atrial Rate 53 BPM [facility] NE-Interval (MSEC) 148 ms [facility] QRS-Interval (MSEC) 78 ms [facility] QT-Interval (MSEC) 446 ms [facility] QTc 418 ms [facility] P [place] 63 degrees [facility] R [place] 21 degrees [facility] T [place] 12 degrees [facility] Diagnosis Sinus bradycardia Otherwise normal ECG When compared with ECG of 24-FEB-2019 08:48, No significant change was found Confirmed by BALWINDER ESTRADA M.D. ([id number]) on 05/08/2024 9:40:53 PM [facility] 05/08/2024 1:20 PM LASER OPERATOR 05/08/2024 9:40 PM LASER OPERATOR Jany Ferguson SFDC TECHNICAL ARCHITECT ECG ORDERABLES Cesia l Result Performing Organization Address City/[facility]/ZIP Co de Phone Number [facility] * eGFR (05/08/2024 1:10 PM LASER OPERATOR) eGFR >90 >=60 mL/min/1. 73 m2 [...] last reviewed 2021. Blood 05/08/2024 1:10 PM LASER OPERATOR 05/08/2024 1:20 PM LASER OPERATOR us Heavenly Stratton DO LAB BLOOD ORDERABLES Final Res ult [facility] [address] [facility] [place] [address] * Differential, auto (05/08/2024 1:10 PM LASER OPERATOR) Pathologist [facility] Neutrophil abs 4.4 1.5 - 6.5 K/cumm Imm gran abs 0.0 0.0 - 0.1 K/cumm [facility] Lymphocyte abs 2.0 0.8 - 3.3 K/cumm [facility] Monocyte abs 0.4 0.2 - 0.8 K/cumm [facility] Eosinophil abs 0.1 0.0 - 0.5 K/cumm [facility] Basophil abs 0.0 0.0 - 0.1 K/cumm [facility] Neutrophil pct 63.9 % [facility] Comment: Interpretive Data Percent cell count reference ranges are not reported, since discordance with absolute values may lead to misinterpretation of CBC data. Current Interpretive Data was last revised on 2017. Imm gran pct 0.4 % [facility] Comment: Interpretive Data Percent cell count reference ranges are not reported, since discordance with absolute values may lead to misinterpretation of CBC data. Current Interpretive Data was last revised on 2017. Lymphocyte pct 29.0 % [facility] Comment: Interpretive Data Percent cell count reference ranges are not reported, since discordance with absolute values may lead to misinterpretation of CBC data. Current Interpretive Data was last revised on 2017. Monocyte pct 5.4 % [facility] Comment: Interpretive Data Percent cell count reference ranges are not reported, since discordance with absolute values may lead to misinterpretation of CBC data. Current Interpretive Data was last revised on 2017. Eosinophil pct 0.7 % [facility] Comment: Interpretive Data Percent cell count reference ranges are not reported, since discordance with absolute values may lead to misinterpretation of CBC data. Current Interpretive Data was last revised on 2017. Basophil pct 0.6 % [facility] Comment: Interpretive Data Percent cell count reference ranges are not reported, since discordance with absolute values may lead to misinterpretation of CBC data. Current Interpretive Data was last revised on 2017. Blood 05/08/2024 1:10 PM LASER OPERATOR 05/08/2024 1:20 PM LASER OPERATOR [employer] LAB BLOOD ORDERABLES Final Res ult RAY [address] [facility] [place] [address] * Infection Prevention MRSA Only (Staphylococcus aureus) PCR Nasal (05/08/2024 1:10 PM LASER OPERATOR) PCR Scrn, Methicillin resistant Staphylococcus aureus (MRSA) Not Detected Not Detected Comment: Interpretive Data Testing performed using Nucleic Acid Amplification with the [employer] Xpert MRSA NxG Assay. This assay detects target DNA from mecA, mecC and the SCCmec insertion site of Staphylococcus aureus using Real-Time PCR and has been cleared by the FDA. Performance characteristics have been verified by the [facility]. Current Interpretive Data was last revised on 2023 Nasal 05/08/2024 1:10 PM LASER OPERATOR 05/08/2024 1:20 PM LASER OPERATOR [employer] LAB MICROBIOLOGY - GENERAL ORD ERABLES Final Result Performing Organization Address City/[facility] Co de Phone Number [address] [address] * CBC with auto differential (05/08/2024 1:10 PM LASER OPERATOR) [facility] WBC 6.9 3.8 - 9.9 K/cumm Hgb 13.0 11.9 - 15.5 g/dL [facility] Hct 40.1 35.6 - 45.5 % [facility] Plt 318 150 - 400 K/cumm [facility] MPV 10.3 9.1 - 12.3 fL [facility] RBC 4.23 3.90 - 5.20 M/cumm [facility] MCV 94.8 81.3 - 96.4 fL [facility] MCH 30.7 27.1 - 33.3 pg [facility] MCHC 32.4 32.3 - 35.7 g/dL [facility] RDW CV 13.5 11.1 - 14.9 % [facility] RDW SD 47.1 35.7 - 48.1 fL [facility] NRBC abs 0.00 0.00 - 0.01 K/cumm [facility] Blood 05/08/2024 1:10 PM LASER OPERATOR 05/08/2024 1:20 PM LASER OPERATOR Heavenly Stratton DO LAB BLOOD ORDERABLES Final Res ult Performing Organization Address [facility] Co de Phone Number [address] [address] * ABO/Rh (05/08/2024 1:10 PM LASER OPERATOR) [facility] ABO/Rh O Positive Blood 05/08/2024 1:10 PM LASER OPERATOR 05/08/2024 1:20 PM LASER OPERATOR Narrative [facility] - 05/08/2024 2:00 PM LASER OPERATOR Is this test being ordered in advance for a procedure?->Yes Expected date of procedure:->05/22/24 Has the patient been transfused in the past 3 months?->No Has the patient been in the past 3 months?->No [facility] LAB BLOOD BANK TEST ORDERABLES Final Result Performing Organization Address [facility] de Phone Number RAY [address] [place] [address] * (ABNORMAL) Nicotine metabolite screen, urine (05/08/2024 1:10 PM LASER OPERATOR) Pathologist [facility] Nicotine, ur <5.0 <5.0 ng/mL [facility] Cotinine, ur 85(H) <5.0 ng/mL [facility] Anabasine ur <2.0 <2.0 ng/mL [facility] Comment: ADDITIONAL INFORMATION This test was developed and its performance characteristics determined by [facility] in a manner consistent with CLIA requirements. This test has not been cleared or approved by the U.S. Food and Drug Administration. Test Performed by: [facility] [place] [id number] [place] [address] Ornamental Metal Worker: Arnaud Celaya Ph.D.; CLIA# [id number] Nornicotine, ur <2.0 <2.0 ng/mL [facility] Urine 05/08/2024 1:10 PM LASER OPERATOR 05/08/2024 1:20 PM LASER OPERATOR [employer] LAB URINE ORDERABLES Final Res ult Performing Organization Address [facility] de Phone Number RAY [address] [facility] [place] [address] [facility] * Protime-INR (05/08/2024 1:10 PM LASER OPERATOR) Pathologist [facility] PT 14.1 12.0 - 14.6 sec INR 1.1 0.9 - 1.2 [facility] Comment: Ref Range High Interpretive data Oral anticoagulant therapeutic ranges: Venous thromboembolism prophylaxis or treatment: 2.0-3.0 CARDIOLOGY Standard range: 2.0-3.0 High-intensity range: 2.5-3.5 Refer to indication-specific guidelines for appropriate target ranges for prosthetic heart valve replacement. Current interpretive data was last revised on 2019. Blood 05/08/2024 1:10 PM LASER OPERATOR 05/08/2024 1:20 PM LASER OPERATOR [employer] LAB BLOOD ORDERABLES Final Res ult Performing Organization Address [facility] de Phone Number [address] [address] * Antibody screen (05/08/2024 1:10 PM LASER OPERATOR) [facility] Cody, indirect, Gel Interpretation Negative ABSC Blood 05/08/2024 1:10 PM LASER OPERATOR 05/08/2024 1:20 PM LASER OPERATOR Narrative [facility] - 05/08/2024 2:00 PM LASER OPERATOR Is this test being ordered in advance for a procedure?->Yes Expected date of procedure:->05/22/24 Has the patient been transfused in the past 3 months?->No Has the patient been in the past 3 months?->No [facility] BLO[facility] TEST ORDERABLES Final Result Performing Organization Address [facility] Phone Number [address] [address] * Comprehensive metabolic panel (05/08/2024 1:10 PM LASER OPERATOR) [facility] Sodium 137 135 - 145 mmol/L Potassium, pl 4.1 3.3 - 4.9 mmol/L [facility] Chloride 104 97 - 110 mmol/L [facility] CO2 24 22 - 32 mmol/L [facility] Anion gap 9 2 - 15 mmol/L [facility] BUN 18 6 - 25 mg/dL [facility] Creatinine 0.70 0.60 - 1.10 mg/dL [facility] Glucose 97 70 - 199 mg/dL [facility] Comment: Interpretive Data Fasting glucose >/= 126 [...] 2022. Calcium 10.2 8.5 - 10.3 mg/dL [facility] Bilirubin, total 0.8 0.1 - 1.2 mg/dL [facility] Protein, pl 6.9 6.5 - 8.5 g/dL [facility] Albumin 4.4 3.5 - 5.0 g/dL [facility] Alk phos 43 40 - 130 Units/L [facility] ALT 19 7 - 45 Units/L [facility] AST 25 10 - 45 Units/L [facility] Blood 05/08/2024 1:10 PM LASER OPERATOR 05/08/2024 1:20 PM LASER OPERATOR Heavenly Stratton DO LAB BLOOD ORDERABLES Final Res ult RAY [address] [facility] [place], [place] [id number] * Pap and High Risk HPV and Genotyping (Cytology Component) (05/31/2023 11:17 AM LASER OPERATOR) Thin prep (Pap test) 05/31/2023 11:17 AM LASER OPERATOR 05/31/2023 7:41 PM LASER OPERATOR Narrative PATHOLOGY [facility] - 06/07/2023 7:14 AM LASER OPERATOR EPIC results best viewed via link to PDF [facility] [place] [address] Note to Patients: This report may contain [...] Gender: F : 1965 (Age: 57) Address: [address] [place] [id number] Hospital #: [id number] Service: DEFAULT Location: Patient Type: [facility] SPECIMEN Taken: 05/31/2023 Received: 05/31/2023 [...] this test have been verified by the [facility] Molecular Infectious Disease laboratory. Correlate with reported cytology results, as applicable. Interpretive data last revised 22 This specimen has been rescreened in accordance with this laboratory's Retail Event Assistant Program. [facility]/06/07/2023 07:14 KB Meehan(ASCP) Report Electronically Reviewed and [...] clinical information and biopsy results as indicated. [facility] Clinical Laboratory Improvement Amendments (CLIA) mandate that cytologic and histologic results be correlated for laboratory quality coordinator & improvement standards. FOR ALL HIGH-GRADE CASES [...] determined by the Surgical Pathology Department at [facility] as part of an ongoing food quality tester program and in compliance with federally mandated [...] determined by the Surgical Pathology Department of [facility]. It has not been cleared or approved by the U. S. Food and Drug Administration. Cassidy Gutierrez MD LAB CYTOLOGY ORDERABLES F inal Result PATHOLOGY [facility] * (ABNORMAL) Screening Mammogram Bilateral W [...] Dulce Curtis NP IMG MAMMO PROCEDURES Final Result from Last 3 Months or Most Recently Relevant to Health Maintenance Insurance [employer]NA [facility] AETNA COVENTRY HMO/POS AETNA [facility] HMO [facility] CHOICE PLUS Advance Directives For more information, please contact: [phone] * Full Code (Latest Code Status on File) Date Activated Date Inactivated Comments 05/22/2024 4:57 PM 05/25/2024 3:22 PM Care Teams Sde Relationship Specialty Start Date End Date Norma Orozco MD [address] [place] [address] PCP - General Internal Medicine 04/03/24 Cassidy Gutierrez MD [address] [place] [address] Sports Complex Attendant Obstetrics and Gynecology 05/08/24 Arthur Dockery MD [address] [address] Consulting Physician Urology 05/08/24 Heavenly Stratton DO [address] [address] Consulting Physician Orthopedic Surgery 05/23/24
--- OUTSIDE RECORDS SUMMARY | 2024-07-06 15:28 | XMS_ITS | Encounter Summary ---
Author Organization [facility] Address [facility] [place] [address] Care Team Providers Care International Travel Consultant Name Role Phone Ria Parr PA-C Primary Care Provider [phone]- [phone] Norma Orozco MD Primary Care Provider [phone]- [phone] Encounter Details Date Type Department Care Team (Late st Contact Info) Description 05/29/2015 Abstract [facility] CONVERSION [address] [place] [address] , Generic Conversion, Social History Tobacco Use [...] Rule Out 03/08/2020 03/08/2020 03/11/2020 7:01 PM SOAKER HELPER COVID-19 Confirmed 03/08/2020 03/08/2020 12:36 AM SOAKER HELPER COVID-19 Rule Out 11/07/2020 11/07/2020 11/09/2020 7:26 PM CDT documented as of this encounter Care Teams International Travel Consultant Relationship Specialty Start Date End Date Ria Parr PA-C [address] [facility] [address] [place] [address] PCP - General PHYSICIAN CONSTRUCTION RECRUITER 10/17/18 04/23/24 Norma Orozco MD [address] [place] [address] PCP - General INTERNAL MEDICINE 04/24/24 documented as of this encounter
--- OUTSIDE RECORDS SUMMARY | 2024-07-06 15:28 | XMS_ITS | Clinical Summary ---
Author Organization [facility] Address [address] [place] [address] Care Team Providers Care Pediatric Immunologist Name Role Phone Norma Orozco MD Primary Care Provider Source Comments [facility],non-owned Affiliates and Associated Physician Practices is amultiple site organization consisting of ambulatory clinics and hospital sitesin [place], [place], [place] and [place]. This disclosure is being madepursuant to the Care Everywhere program and may not contain all information available regarding this patient. Last updated 18.[facility] Allergies No known active allergies Medications Be [...] Comments Blood Pressure 127/82 02/26/2020 1:16 PM AUDIO PRODUCTION ENGINEER Pulse 83 02/26/2020 1:16 PM AUDIO PRODUCTION ENGINEER Temperature 36.3 C (97.4 F) 01/23/2020 9:57 AM CDT Respiratory Rate 16 01/23/2020 9:57 AM CDT Oxygen Saturation 99% 01/23/2020 9:57 AM CDT Inhaled Oxygen Concentration - - Weight 84.6 kg (186 lb 9.6 oz) 01/23/2020 9:57 A M CDT Height 167.6 cm (5' 6 ) 02/26/2020 1:16 PM AUDIO PRODUCTION ENGINEER Body Mass Index 30.12 01/23/2020 9:57 [...] SCREENING 1967 LIPID TESTING 1967 MAMMOGRAM 1967 HIV SCREENING 10/07/1982 HEPATITIS C SCREENING [...] complete this topic MENINGOCOCCAL (Group B) VACCINE SHARED DECISION-MAKING Aged Out No longer eligible based on patient's age to complete this topic MENINGOCOCCAL GROUPS A/C/Y/W VACCINE Aged Out No longer eligible based [...] 7 - 26 mg/dL 12/14/2019 2:59 AM [facility] Creatinine 0.8 0.6 - 1.2 mg/dL 12/14/2019 2:59 AM [facility] Sodium 140 136 - 145 mmol/L 12/14/2019 2:59 AM [facility] Potassium 3.9 3.5 - 4.5 mmol/L 12/14/2019 2:59 AM [facility] Chloride 104 98 - 107 mmol/L 12/14/2019 2:59 AM [facility] CO2 27 22 - 29 mmol/L 12/14/2019 2:59 AM [facility] Glucose 97 70 - 115 mg/dL 12/14/2019 2:59 AM [facility] Calcium 9.0 8.4 - 10.2 mg/dL 12/14/2019 2:59 AM CDT [facility] Anion Gap 13 8 - 18 12/14/2019 2:59 AM CDT [facility] BUN/Creatinine Ratio 19 7 - 23 12/14/2019 2:59 AM CDT [facility] Osmolality Calculated 291 270 - 300 mOsm/kg 12/14/2019 2:59 AM CDT [facility] eGFR >60 >60 mL/min/1.7 3 m2 12/14/2019 2:59 AM CDT [facility] Blood BLOOD SPECIMEN / Unknown Lab Venipuncture / Unknown 12/14/2019 2:20 AM CDT 12/14/2019 2:36 AM CDT Dany Avery MD LAB - CHEMISTRY [facility] Organization Address City/State/ZIP Co de Phone Number [facility] [address] [place] [address], [facility] [phone] from Last 3 Months or Most Recently Relevant to Health Maintenance Insurance Payer Benefit Plan / Group Subscriber ID Effective Dates Phone Address Type TPL THIRD LIBERTARIAN LIABILITY TPL [employer]ARIAN LIABILITY [id number] 2019-Pr esent [phone] [address] [place] [address] Third Constitution Party Liability [facility] MEDICARE SUPPLEMENT [id number] Effective for all dates [address] [place] [address] Commercial [employer] HE[employer] OPEN ACCESS HMO [id number] 2019-Pr esent [phone] [address] [place] [address] O [employer] HEALTH[employer] PPO [id number] Effective for all dates [phone] [address] [place] [address] PPO Advance Directives * Full Code (Latest Code Status on File) Date Activated Date Inactivated Comments 12/10/2019 6:54 AM 12/14/2019 5:44 PM * Full Code Date Activated Date Inactivated Comments 12/10/2019 6:37 AM 12/10/2019 6:54 AM Care Teams Pediatric Immunologist Relationship Specialty Start Date End Date Norma Orozco MD PCP - General Internal Medicine 02/26/20
--- OUTSIDE RECORDS SUMMARY | 2024-07-06 15:28 | XMS_ITS | Patient Health Summary ---
Author Organization [facility] Address [address] [place] [address] Care Team Providers Care Hone Operator Name Role Phone Norma Orozco MD Primary Care Provider Note from [facility],non-owned Affiliates and Associated Physician Practices is amultiple site organization consisting of ambulatory clinics and hospital sitesin [place], [place], [place] and [place]. This disclosure is being madepursuant to the Care Everywhere program and may not contain all information available regarding this patient. Last updated 18.[facility] Allergies No known active allergies Medications Be [...] Comments Blood Pressure 127/82 02/26/2020 1:16 PM ENROLLMENT MANAGEMENT MANAGER Pulse 83 02/26/2020 1:16 PM ENROLLMENT MANAGEMENT MANAGER Temperature 36.3 C (97.4 F) 01/23/2020 9:57 AM CDT Respiratory Rate 16 01/23/2020 9:57 AM CDT Oxygen Saturation 99% 01/23/2020 9:57 AM CDT Inhaled Oxygen Concentration - - Weight 84.6 kg (186 lb 9.6 oz) 01/23/2020 9:57 A M CDT Height 167.6 cm (5' 6 ) 02/26/2020 1:16 PM ENROLLMENT MANAGEMENT MANAGER Body Mass Index 30.12 01/23/2020 9:57 AM CDT Procedures * MN EAR MICROSCOPY EXAMINATION(Performed 02/26/2020) Performed for Closed [...] Trauma * ENDOTRACHEAL TUBE NOTE(Performed 12/10/2019) * MN LAP,DIAGNOSTIC ABDOMEN(Performed 12/10/2019) Performed for Blunt abdominal [...] BLOOD(Performed 12/10/2019) Performed for Trauma Results * MN EAR MICROSCOPY EXAMINATION (02/26/2020 2:14 PM ENROLLMENT MANAGEMENT MANAGER) Narrative Akil Munoz MD - 02/26/2020 2:14 PM ENROLLMENT MANAGEMENT MANAGER Akil Munoz MD 02/26/2020 2:14 PM Procedure: Microscopic exam of the ear(s) Findings: See main note. Procedure in detail: The binocular operating microscope and and ear speculum were used to exam the ear(s). The patient tolerated the procedure well and there was no bleeding. Akil Munoz MD Akil Munoz MD PROCEDURE/MINOR YOSSI GICAL ORDERABLES * AUDIOLOGY/TYMPANOMETRY ORDER (02/26/2020 12:28 PM ENROLLMENT MANAGEMENT MANAGER) Roque Barrios, PhD - 02/26/2020 12:56 PM ENROLLMENT MANAGEMENT MANAGER Julieth Abrams is a 54 year old [...] with an ENT/ PCP. Roque Welch, Ph.D., [facility] Paradichlorobenzene Machine Operator Director, Division of Audiology Department of Otolaryngology- Head & Neck Surgery [facility] Roque Welch PhD AUDIOLOGY SERVICES O RDERABLES [...] on 12/22/2019 11:45 AM . Lakeisha Barrera CORE SHAPER SIDES-LARRY OPERATOR FLUOROSCOPY ORDE ZARA * (ABNORMAL) CBC W AUTO DIFFERENTIAL (12/14/2019 2:20 AM CDT) Only the most recent of6 resultswithin the time period is included. WBC 8.5 3.5 - 10.5 10 3/uL 12/14/2019 2:39 AM CDT [facility] RBC 3.64(L) 3.90 - 5.00 10 6/uL 12/14/2019 2:39 AM [facility] Hemoglobin 11.2(L) 12.0 - 15.5 g/dL 12/14/2019 2:39 AM [facility] Hematocrit 34.7(L) 35.0 - 45.0 % 12/14/2019 2:39 AM [facility] MCV 95.3 81.0 - 97.0 fL 12/14/2019 2:39 AM [facility] MCH 30.8 28.0 - 34.0 pg 12/14/2019 2:39 AM [facility] MCHC 32.3 32.0 - 36.0 g/dL 12/14/2019 2:39 AM [facility] Platelet Count 320 150 - 400 10 3/uL 12/14/2019 2:39 AM [facility] RDW-SD 45.4 36.0 - 50.0 fL 12/14/2019 2:39 AM [facility] RDW-CV 13.0 11.2 - 14.8 % 12/14/2019 2:39 AM [facility] MPV 9.8 9.3 - 12.8 fL 12/14/2019 2:39 AM [facility] nRBC Absolute 0.00 0 10 3/uL 12/14/2019 2:39 AM [facility] nRBC Auto 0.0 0 /100 WBC 12/14/2019 2:39 AM [facility] Neutrophils % 53.2 35.0 - 70.0 % 12/14/2019 2:39 AM [facility] Lymphocytes % 35.3 19.7 - 55.1 % 12/14/2019 2:39 AM [facility] Monocytes % 6.3 3.0 - 15.0 % 12/14/2019 2:39 AM [facility] Eosinophils % 3.9 0.0 - 6.0 % 12/14/2019 2:39 AM [facility] Basophil % 0.5 0.0 - 1.5 % 12/14/2019 2:39 AM [facility] Neutrophils Absolute 4.5 1.6 - 7.0 10 3/uL 12/14/2019 2:39 AM [facility] Lymphocyte Absolute 3.0(H) 0.8 - 2.9 10 3/uL 12/14/2019 2:39 AM T [facility] Monocytes Absolute 0.54 0.14 - 0.66 10 3/uL 12/14/2019 2:39 AM [facility] Eosinophils Absolute 0.33 0.00 - 0.45 10 3/uL 12/14/2019 2:39 AM [facility] Basophils Absolute 0.04 0.00 - 0.06 10 3/uL 12/14/2019 2:39 AM [facility] Immature Granulocytes % 0.8 0.0 - 1.0 % 12/14/2019 2:39 AM [facility] Blood BLOOD SPECIMEN / Unknown Lab Venipuncture / Unknown 12/14/2019 2:20 AM CDT 12/14/2019 2:36 AM CDT Dany Avery MD LAB - HEMATOLOGY ORD ERABLES Performing Organization Address City/State/[facility] Co de Phone Number [address] [phone] [phone] * BASIC METABOLIC PANEL (CALCIUM TOTAL) (12/14/2019 2:20 AM CDT) Only the most recent of6 resultswithin the time period is included. BUN 15 7 - 26 mg/dL 12/14/2019 2:59 AM [facility] Creatinine 0.8 0.6 - 1.2 mg/dL 12/14/2019 2:59 AM [facility] Sodium 140 136 - 145 mmol/L 12/14/2019 2:59 AM [facility] Potassium 3.9 3.5 - 4.5 mmol/L 12/14/2019 2:59 AM [facility] Chloride 104 98 - 107 mmol/L 12/14/2019 2:59 AM [facility] CO2 27 22 - 29 mmol/L 12/14/2019 2:59 AM [facility] Glucose 97 70 - 115 mg/dL 12/14/2019 2:59 AM [facility] Calcium 9.0 8.4 - 10.2 mg/dL 12/14/2019 2:59 AM [facility] Anion Gap 13 8 - 18 12/14/2019 2:59 AM CDT [facility] BUN/Creatinine Ratio 19 7 - 23 12/14/2019 2:59 AM CDT [facility] Osmolality Calculated 291 270 - 300 mOsm/kg 12/14/2019 2:59 AM CDT [facility] eGFR >60 >60 mL/min/1.7 3 m2 12/14/2019 2:59 AM CDT [facility] Blood BLOOD SPECIMEN / Unknown Lab Venipuncture / Unknown 12/14/2019 2:20 AM CDT 12/14/2019 2:36 AM CDT Dany Avery MD LAB - CHEMISTRY [place] [address], [facility] [phone] * PHOSPHORUS BLOOD (12/14/2019 2:20 AM CDT) Only the most recent of5 resultswithin the time period is included. Phosphorus 3.2 2.3 - 4.7 mg/dL 12/14/2019 2:59 AM CDT [facility] Blood BLOOD SPECIMEN / Unknown Lab Venipuncture / Unknown 12/14/2019 2:20 AM CDT 12/14/2019 2:36 AM CDT Dany Avery MD LAB - CHEMISTRY [place] [address], [facility] [phone] * MAGNESIUM BLOOD (12/14/2019 2:20 AM CDT) Only the most recent of5 resultswithin the time period is included. Magnesium 2.0 1.6 - 2.6 mg/dL 12/14/2019 2:59 AM CDT [facility] Blood BLOOD SPECIMEN / Unknown Lab Venipuncture / Unknown 12/14/2019 2:20 AM CDT 12/14/2019 2:36 AM CDT Dany Avery MD LAB - CHEMISTRY ORDE ZARA Performing Organization Address [facility] Co de Phone Number [address] [address], [facility] [phone] * CREATININE BODY FLUID ([facility] ONLY) (12/12/2019 9:49 AM CDT) Creatinine Fluid 0.6 Not Established For Fluids mg/dL 12/12/2019 10:55 AM CDT [facility] Comment:The analytical perfo rmance of this test has been independently validated by [facility]. A reference range has not been established. Comparison of this result with the concentration in blood, serum or plasma is recommended. Fluid PERITONEAL FLUID / Unknown Collection / Unknown 12/12/2019 9:49 AM CDT 12/12/2019 10:21 AM CDT Lorie Gutierrez CORE SHAPER SIDES-LARRY OPERATOR LAB - BODY FLUID ORDERABLES Performing Organization Address [facility] Co de Phone Number [address] [address], [facility] [phone] * XR TIBIA FIBULA RIGHT 2VW (12/11/2019 [...] Report dictated by Kaylen Estrada MD (residential instructor). This report was approved by Kaylen Estrada [...] Report dictated by Kaylen Estrada MD (residential instructor). This report was approved by Kaylen Estrada [...] pain. Dictated by Shahriar Jacobs MD (residential instructor). Dr. Joshua Carmona M.D. have personally reviewed [...] pain. Dictated by Shahriar Jacobs MD (residential instructor). Dr. Joshua Carmona M.D. have personally reviewed and interpretedthis examination/study. This report was electronically signed by Joshua SILVER M.D. on 12/11/2019 3:02 PM . Maribel Vicente Kiet DO DIAGNOSTIC IMAG ING ORDERABLES * (ABNORMAL) URINALYSIS W/MICROSCOPIC NO CULTURE (12/10/2019 6:55 AM CDT) Color UA Straw Straw, Yellow, Colorless 12/10/2019 7:27 AM [facility] Clarity UA Slt Cloudy Clear, Slt Cloudy 12/10/2019 7:27 AM [facility] Specific Bynum UA 1.017 1.005 - 1.030 12/10/2019 7:27 AM [facility] pH UA 7.0 5.0 - 8.0 pH 12/10/2019 7:27 AM [facility] Protein UA Negative Negative mg/dL 12/10/2019 7:27 AM [facility] Glucose UA 1+(A) Negative mg/dL 12/10/2019 7:27 AM [facility] Ketone UA Negative Negative mg/dL 12/10/2019 7:27 AM [facility] Bilirubin UA Negative Negative mg/dL 12/10/2019 7:27 AM [facility] Blood UA 3+(A) Negative 12/10/2019 7:27 AM [facility] Nitrite UA Negative Negative 12/10/2019 7:27 AM [facility] Leukocyte Esterase 1+(A) Negative 12/10/2019 7:27 AM [facility] Urobilinogen UA Negative Negative mg/dL 12/10/2019 7:27 AM [facility] RBC UA >100(A) None Seen, 0-2, 3-5 /HPF 12/10/2019 7:27 AM [facility] WBC UA 11-20(A) None Seen, 0-5 /HPF 12/10/2019 7:27 AM [facility] Bacteria UA Trace None, Trace /HPF 12/10/2019 7:27 AM [facility] Squamous Epithelial Cells UA None Seen None Seen, 0-2 /HPF 12/10/2019 7:27 AM [facility] Mucus UA 1+ None, 1+ /LPF 12/10/2019 7:27 AM [facility] Transitional Epithelial Cells UA 0-2 None Seen, 0-2 /HPF 12/10/2019 7:27 AM [facility] Urine URINE SPECIMEN OBTAINED BY SINGLE CATHETERIZATION OF URINARY BLADDER / Unknown Collection / Unknown 12/10/2019 6:55 AM CDT 12/10/2019 7:00 AM CDT Narrative [facility] - 12/10/2019 7:27 AM CDT Maribel Santa DO LAB - URINALYSI S ORDERABLES [address] [address], [facility] [phone] * (ABNORMAL) DRUG SCREEN TOX URINE PANEL (12/10/2019 6:55 AM CDT) Pathologist [facility] Amphetamines Screen Urine Negative Negative : < 1000 ng/mL 12/10/2019 7:19 AM [facility] Barbiturates Screen Urine Negative Negative : < 200 ng/mL 12/10/2019 7:19 AM [facility] Benzodiazepine Screen Urine Negative Negative : < 200 ng/mL 12/10/2019 7:19 AM [facility] Opiates Urine Negative Negative : < 300 ng/mL 12/10/2019 7:19 AM [facility] Cocaine Metabolites Urine Negative Negative : < 300 ng/mL 12/10/2019 7:19 AM [facility] Phencyclidine Screen Urine Negative Negative : < 25 ng/ml 12/10/2019 7:19 AM [facility] Cannabinoids Screen Urine Negative Negative : <50 ng/mL 12/10/2019 7:19 AM [facility] Methadone Screen Urine Negative Negative : < 300 ng/mL 12/10/2019 7:19 AM [facility] Fentanyl Screen Urine Positive(A) Negative : <1.0 ng/mL 12/10/2019 7:19 AM [facility] Comment:Positive urine fenta nyl screening results should be confirmed by another generally accepted non-immunological method such as gas chromatography or mass spectrometry. Urine URINE / Unknown Collection / Unknown 12/10/2019 6:55 AM CDT 12/10/2019 7:00 AM CD Narrative [facility] - 12/10/2019 7:19 AM CDT The Urine Toxicology Screening Panel does not screen for Propoxyphene, Meprobamate, Carisoprodol, Trazodone, wugu-kgl-navhcrm medications and/or volatiles (Acetone, Isopropanol, Methanol or Ethylene Glycol). Ethanol, Salicylate, Acetaminophen, Tricyclic Antidepressants and several therapeutic drugs may be individually assayed in serum or plasma specimen. Toxicology testing by the [facility] is an aid to medical diagnosis and treatment of patients. No documented chain of custody was maintained. Results are intended to be used for clinical purposes only. Maribel Santa DO LAB - URINE RICHAR RICKIE ORDERABLES [address] [address], [facility] [phone] * ETT LINE PERFORMABLE (12/10/2019 3:39 AM CDT) Narrative Mark Balderrama MD - 12/10/2019 3:39 AM CDMark Amato MD 12/10/2019 3:40 AM Endotracheal Tube Placement: Patient Location: OR. Intubation Event Date/Time: 12/10/2019 3:17 AM Procedure: intubation (09009). Procedure Section: Sedation: IV sedation. Indications for [...] present. Dictated by [place] MD (residential instructor). I, Dr. ECTOR STEVENSON have personally reviewed [...] present. Dictated by [place] MD (residential instructor). I, Dr. ECTOR STEVENSON have personally reviewed [...] intact. Dictated by Shahriar Jacobs MD (residential instructor). I, Dr. LO SALGADO have personally reviewed [...] isintact. Dictated by Shahriar Jacobs MD (residential instructor). Dr. LO Carmona have personally reviewed and interpreted this examination/study. This report was electronically signed by OL SALGADO on 12/10/2019 11:27 AM . Maribelkamar Vicente Nelycorettapadmini [facility]LLINS DIAGNOSTIC IMAG ING ORDERABLES * XR PELVIS 1 OR 2VW (12/10/2019 12:53 AM CDT) Anatomical Region Laterality Modality Pelvis Radiographic Serenity ging 12/10/2019 11:1 4 AM CDT Impressions 12/10/2019 11:27 AM CDT IMPRESSION: No acute fracture identified. Dictated by Shahriar Jacobs MD (residential instructor). Dr. LO Carmona have personally reviewed and [...] identified. Dictated by Shahriar Jacobs MD (residential instructor). I, Dr. LO SALGADO have personally reviewed and interpreted this examination/study. This report was electronically signed by LO SALGADO on 12/10/2019 11:27 AM . Maribel Santa DO DIAGNOSTIC IMAG ING ORDERABLES * TYPE + SCREEN PANEL (12/10/2019 12:52 AM CDT) Antibody Screen NEG 0 2:20 AM CDT [facility] ABO Rh O POS 12/10/2019 2:20 AM CDT [facility] Blood Bank BLOOD SPECIMEN / Unknown Venipuncture / Unknown 12/10/2019 12:52 AM CDT 12/10/2019 1:23 AM CDT Maribel Santa DO LAB - BLOOD BAN K ORDERABLES Performing Organization Address [facility] de Phone Number [facility] [address] [place] [address] * (ABNORMAL) PT-INR [facility] (12/10/2019 12:51 AM CDT) PT 17.5(H) 12.1 - 14.8 Seconds 12/10/2019 1:28 AM CDT [facility] INR 1.5 See Comment 12/10/2019 1:28 AM CDT [facility] Comment:The suggested therap eutic range for standard coumadin (warfarin) therapy is an INR of 2.0-3.0. For high-risk patients (Mechanical Mitral Valve Prosthesis, etc.), the suggested prophylactic therapeutic range is an INR of 2.5-3.5. Blood BLOOD SPECIMEN / Unknown Venipuncture / Unknown 12/10/2019 12:51 AM CDT 12/10/2019 1:10 AM CDT Maribel Santa DO LAB - COAGULATI ON ORDERABLES Performing Organization Address [facility]/ZIP Co de Phone Number [address] [address], [place] [phone] * (ABNORMAL) HCG BETA BLOOD QUANTITATIVE (12/10/2019 12:51 AM CDT) Beta-hCG Total Quantitative 5(H) <5 mIU/mL 12/10/2019 1:35 AM CDT [facility] Comment: This assay is cleared for [...] LAB - CHEMISTRY ORDERABLES Performing Organization Address City/[facility]/ZIP Co de Phone Number [address], [facility] [phone] * (ABNORMAL) ALCOHOL ETHYL BLOOD (12/10/2019 12:51 AM CDT) Pathologist [facility] Ethanol (mg/dL) 100(H) None Detected mg/dL 12/10/2019 1:29 AM CDT [facility] Comment:Ethanol in the patie nt's blood will contribute to the osmolar gap. Ethanol's contribution to the osmolar gap can be estimated by dividing the concentration of ethanol in mg/dL by 4.6. Blood BLOOD SPECIMEN / Unknown Venipuncture / Unknown 12/10/2019 12:51 AM CDT 12/10/2019 1:10 AM CDT Maribel Santa DO LAB - CHEMISTRY ORDERABLES Performing Organization Address [facility]/ZIP Co de Phone Number [address] [phone] [phone] Care Teams Hone Operator Relationship Specialty Start Date End Date Norma Orozco MD PCP - General Internal Medicine 02/26/20
--- OUTSIDE RECORDS SUMMARY | 2024-07-06 15:28 | XMS_ITS | Encounter Summary ---
Author Organization [facility] Address [address] [place] [address] Care Team Providers Care Campus Recruiting Intern Name Role Phone Norma Orozco MD Primary Care Provider Cassidy Gutierrez MD Unavailable [phone] Arthur Dockery MD Unavailable [phone] Heavenly Stratton DO Unavailable [phone] Reason for Referral * Diagnostic Imaging (Routine) - Closed Specialty Diagnoses / Procedures Referred By Cecille adams Referred To Contact Diagnoses Primary osteoarthritis of right hip Procedures XR Hip Right W Pelvis Min 2 To 3 Views Heavenly Stratton DO [address] [place] [address] Phone: tel: fax: [address] [phone] Referral ID Status Reason Start Date Expiration Date Visits Re quested Visits Authorized [id number] Closed 06/27/2024 07/27/2025 1 1 SALES TECHNICAL ENGINEER Encounter Details Date Type Department Care Team (Late st Contact Info) Description 07/06/2024 9:15 AM CDT Office Visit [facility] Orthopedics and Sports Medicine [address] [place], [place] [address], [place] [address] Heavenly Stratton DO [address] [place] [address] Primary osteoarthritis of right hip (Primary Dx); S/P total right hip arthroplasty Social History Tobacco Use Types Packs/Day Years Used Date Smoking Tobacco: Never Smokeless Tobacco: Never Alcohol Use Standard Drinks/Week Comments Yes 0 (1 standard drink = 0.6 oz pur e alcohol) [facility] Utilities Answer Date Recorded In the past 12 months has [employer] electric, gas, oil, or water company threatened [...] often do you attend chur ch or muslim services? Never 05/23/2024 Do you belong to any clubs o r organizations such as denominational groups, unions, fraternal or athletic groups, or [...] any time in the past 12 m [facility], were you homeless or living in a intermediate (including now)? No 05/23/2024 Personal Safety Answer Date Recorded Have you ever been in or are you currently in a harmful physical or emotional relationship or is someone making you feel afraid or unsafe? Denies 05/22/2024 Comments No Sex and Gender Information Value Date Recorded Sex Assigned at Not on file Legal Sex Female 1:15 AM PRE SALES TECHNICAL ENGINEER Gender Identity Not on file Sexual Orientation Not on file documented as of this encounter Progress Notes * Heavenly Stratton DO - 07/06/2024 9:15 AM CDT Images from the original note were not included. This patient has verbally consented to recording this visit in order to utilize AI technology in generating this note. Postop Visit CHIEF COMPLAINT: She had no chief complaint listed for this encounter. HPI:Julieth Abrams is a 58 y.o. female who was seen today for follow up after right anterior total hip arthroplasty performed on 05/22/2024 History of Present Illness The patient, with a history of hip replacement, presents for a post-operative follow-up. She reports that the hip is 'doing great' and she experiences pain only when she has been on it too much. She has been attending physical therapy at [facility], but has recently stopped due to a kidney stone procedure. She reports significant daily improvement in the hip function and is pleased with the progress. The patient is also interested in resuming biking and is seeking advice on when it would be safe todo so. She has an electric bike which she uses for hill climbs. MEDICATIONS She has a current medication list which includes the following prescription(s): valacyclovir and naproxen. ALLERGIES She has no known allergies. REVIEW OF SYSTEMS Constitutional: Positive for activity change Musculoskeletal: Positive for arthralgias PHYSICAL EXAM There were no vitals taken for this visit. Well-healing anterior incision no sign of erythema or infection present No pain with internal and external rotation of the hip and no pain over the anterior thigh Full range of motion and strength in the right hip with 5/5 strength with resisted hip flexion and extension. Sensation intact distally INDEPENDENT REVIEW OF IMAGING: Results AP pelvis and frog-leg lateral of the right hip performed today and independently interpreted by rowena evidence of maintained alignment of a total hip arthroplasty with no sign of dislocation, fracture or lucency surrounding the implant. Assessment/Plan: 1. S/P total right hip arthroplasty 2. Primary osteoarthritis of right hip (Primary) - XR Hip Right W Pelvis Min 2 To 3 Views; Future Assessment & Plan Primary osteoarthritis of right hip Post-treatment, the right hip exhibits minimal pain (1/10) only after excessive use. X-ray results are excellent, and the incision site is healing well with some scar tissue. Discontinued physical therapy after a kidney stone procedure but reports significant improvement in hip function. - Continue scar massage to reduce scar tissue. - Encourage gradual increase in activity, including biking, with caution to avoid overexertion. - Avoid running and twisting activities. - Schedule follow-up appointment in six weeks for imaging and assessment with RADHA Stratton DO 07/06/2024 documented in this encounter Plan of Treatment Pending Results [...] (OP Routine) Primary osteoarthritis of right hip Expected: 07/06/2024, Expires: 06/27/2025 documented as of this encounter Visit Diagnoses Diagnosis Primary osteoarthritis of right hip- Primary S/P total right hip arthroplasty documented in this encounter Discontinued Medications Medication Sig Discontinue Reason Start Date End Da te apixaban (ELIQUIS) 2.5 mg tabletIndications:VTE Prophylaxis Following Ortho Surgery Take 1 tablet (2.5 mg total) by mouth 2 (two) times a day Therapy completed 05/23/2024 07/06/2024 ondansetron ODT (ZOFRAN-ODT) 4 mg disintegrating tabletIndications:Prevent ion of Post-Operative Nausea and Vomiting Take 1 tablet (4 mg total) by mouth every 8 (eight) hours as needed for nausea or vomiting Therapy completed 05/23/2024 07/06/2024 documented as of this encounter Care Teams Campus Recruiting Intern Relationship Specialty Start Date End Date Norma Orozco MD [address] [place] [address] [address] [place] [address] PCP - General Internal Medicine 04/03/24 Cassidy Gutierrez MD [address] [place] [address] Reel And Rewinder Operator Obstetrics and Gynecology 05/08/24 Arthur Dockery MD [address] [place] [address] Consulting Physician Urology 05/08/24 Heavenly Stratton DO [address] [address] Consulting Physician Orthopedic Surgery 05/23/24 documented as of this encounter
--- OUTSIDE RECORDS SUMMARY | 2024-07-06 15:28 | XMS_ITS | Clinical Summary ---
Author Organization [facility] [place] [facility] Address [address] [place] [address] Care Team Providers Care Carpenter Assistant Installer Name Role Phone Norma Orozco MD Primary Care Provider Cassidy Gutierrez MD Unavailable [phone] Arthur Dockery MD Unavailable [phone] Heavenly Stratton DO Unavailable [phone] Allergies No known active allergies Medications [...] she was walking with . Treated at [facility]. Ruptured bladder. Fractures to the right [...] Date Type Department Care Team Description 07/06/2024 9:15 AM CDT Office Visit [facility] Medical [facility] Orthopedics and Sports Medicine [address] [place] [address] [address] [place] [address] Heavenly Stratton DO Primary osteoarthritis of right hip (Primary Dx); S/P total right hip arthroplasty 07/06/2024 9:02 AM CDT Hospital Encounter [facility] MOB 1 DIAG IMG [address] [place] [address] Primary osteoarthritis of right hip 06/23/2024 Orders Only [facility] Health Information Management [address] [place] [address] Scanning, Provider 06/14/2024 Orders Only [facility] Information Management [address] [place] [address] Scanning, Provider 06/06/2024 9:30 AM TRACK WALKER Office Visit [facility] Medical [facility] Orthopedics and Sports Medicine [address] [place] [phone] Liam Wolfe PA S/P total right hip arthroplasty (Primary Dx) 06/06/2024 9:14 AM TRACK WALKER - 06/06/2024 11:59 PM TRACK WALKER Hospital Encounter [facility] Diag Imaging [address] [place] [address] S/P total right hip arthroplasty Discharge Disposition: Discharge to home or self care 05/22/2024 11:21 AM TRACK WALKER Anesthesia Event [facility] OR [address] [place] [address] Susan Bob MD Taylor-White, Carlotta A., NP 05/22/2024 11:15 AM TRACK WALKER - 05/22/2024 2:15 PM TRACK WALKER Surgery [facility] OR [address] [place] [address] Heavenly Stratton DO ANTERIOR APPROACH, RIGHT TOTAL HIP ARTHROPLASTY 05/22/2024 9:09 AM TRACK WALKER - 05/25/2024 11:15 AM TRACK WALKER Hospital Encounter [address] [address] Heavenly Stratton DO Primary osteoarthritis of right hip [M16.11] (Primary Dx); Tear of right acetabular labrum, subsequent encounter [S73.191D]; Aftercare following right hip joint replacement surgery Discharge Disposition: Discharge to home or self care 05/09/2024 2:00 PM TRACK WALKER Therapy [facility] OP Occup Therapy [address] [place] [address] Rudi Alvarez, NITA Primary osteoarthritis of right hip (Primary Dx) 05/09/[address] [address] Moriah Sequeira, BRENT 05/08/2024 1:00 PM TRACK WALKER Pre-Admission Testing [facility] PreAdmission Testing [address] [place] [address] Preop examination (Primary Dx); Primary osteoarthritis of right hip; Preop testing; Pain in other specified joint from Last 3 Months Immunizations Immunization Administration [...] drink = 0.6 oz pur e alcohol) [facility] Utilities Answer Date Recorded In the [...] often do you attend chur ch or confucianist services? Never 05/23/2024 Do you belong to any clubs o r organizations such as amish groups, unions, fraternal or athletic groups, or [...] time in the past 12 m [facility], were you homeless or living in a skilled nursing (including now)? No 05/23/2024 Personal Safety Answer Date Recorded Have you ever been in or are you currently in a harmful physical or emotional relationship or is someone making you feel afraid or unsafe? Denies 05/22/2024 Comments No Sex and Gender Information Value Date Recorded Sex Assigned at Not on file Legal Sex Female 1:15 AM TRACK WALKER Gender Identity Not on file Sexual Orientation Not on file Obstetrics History Para Term AB IAB SAB Ectopic Multiple Livin g Live Births 2 2 2 2 Date Outcome GA Total Labor Labor/2nd/3rd Weight Sex Type Anes PTL Ema A1 A5 Name Clin Term Term Last Filed Vital Signs Vital Sign Reading Time Taken Comments Blood Pressure 121/77 05/25/2024 7:20 AM TRACK WALKER Pulse 73 05/25/2024 7:20 AM TRACK WALKER Temperature 36.5 C (97.7 F) 05/25/2024 7:20 AM TRACK WALKER Respiratory Rate 15 05/25/2024 7:2 0 AM TRACK WALKER Oxygen Saturation 96% 05/25/2024 7:20 AM TRACK WALKER Inhaled Oxygen Concentration - - Weight 69.8 kg (153 lb 14.1 oz) 05/22/2024 4:41 PM TRACK WALKER Height 167.6 cm (5' 6 ) 05/22/2024 4:28 PM TRACK WALKER Body Mass Index 24.84 05/22/2024 4:28 PM TRACK WALKER Plan of Treatment Health Maintenance Due Date [...] this topic Medical Devices Implanted Type Area Fifth Hand Device Identifier Shelf Expiration Date Model / Serial / Lot [employer] Partnership Marker Biospy Site Top Hat Shape Senomark Igrgh-Nuaayx-5p - [id number] Implanted:Qty: 1 on 03/16/2023 by Kiko Bruno MD at [facility] Left: Breast [employer] [id number] 12/25/2023 [place] O-2S / / [id number] [employer] [place] 52mm Sector Hip Shell Acetabular Porocoat Sterile Latex Free 1217-22-052 - [id number] Implanted:Qty: 1 on 05/22/2024 by Heavenly Stratton DO at [facility] Right: Hip [employer] [id number] 06/23/2033 1217-22-052 / / [id number] [employer] [place] 52mm 36mm Hip Neutral Liner Acetabular Altrx Sterile Latex Free [id number] - [id number] Implanted:Qty: 1 on 05/22/2024 by Heavenly Stratton DO at [facility] Right: Hip [employer] [id number] 04/25/2029 [id number] / / [id number] [employer] [place] 6.5mm 25mm Acetabular Cancellous Screw Bone Sterile 1217--500 - [id number] Implanted:Qty: 1 on 05/22/2024 by Heavenly Stratton DO at [facility] Right: Hip [employer] [id number] 10/23/2033 1217--500 / / [id number] [employer] [place] 6.5mm 25mm Acetabular Cancellous Screw Bone Sterile [id number] - [id number] Implanted:Qty: 1 on 05/22/2024 by Heavenly Stratton DO at [facility] Right: Hip [employer] [id number] 12/24/2033 1217-25-500 / / [id number] [employer] Actis Collared Hip /14 3 Standard Offset Stem Femoral [id number] - [id number] Implanted:Qty: 1 on 05/22/2024 by Heavenly Stratton DO at [facility] Right: Hip [employer] [id number] 10/23/2033 [id number] / / [id number] [employer] Articul/Mitesh 36mm Cementless Hip +5mm 12/14 Taper Head Femoral Latex Free [id number] - [id number] Implanted:Qty: 1 on 05/22/2024 by Heavenly Stratton DO at [facility] Right: Hip [employer] [id number] 01/23/2029 [id number] / / [id number] Procedures Procedure Name Priority Date/Time Associated Diagnosis Comments SCAN - RADIOLOGY/IMAGING 06/23/2024 SCAN - RADIOLOGY/IMAGING 06/14/2024 XR HIP RIGHT W PELVIS 2 OR 3 VIEWS Schedule Routine, Read Routine (OP Routine) 06/06/2024 9:22 AM TRACK WALKER S/P total right hip arthroplasty EGFR Routine 05/25/2024 5:16 AM TRACK WALKER DIFFERENTIAL AUTO Routine 05/25/2024 5:1 6 AM TRACK WALKER CBC WITH AUTO DIFFERENTIAL Routine 05/25/2024 5:16 AM TRACK WALKER BASIC METABOLIC PANEL Routine 05/25/2024 5:16 AM TRACK WALKER THYROID FUNCTION CASCADE Routine 05/24/2024 4:49 PM TRACK WALKER PRO B-TYPE NATRIURETIC PEPTIDE Routine 05/24/2024 4:49 PM TRACK WALKER TROPONIN T HIGH-SENSITIVITY Routine 05/24/2024 4:49 PM TRACK WALKER EGFR Routine 05/24/2024 4:50 AM TRACK WALKER DIFFERENTIAL AUTO Routine 05/24/2024 4:5 0 AM TRACK WALKER CBC WITH AUTO DIFFERENTIAL Routine 05/24/2024 4:50 AM TRACK WALKER BASIC METABOLIC PANEL Routine 05/24/2024 4:50 AM TRACK WALKER POCT GLUCOSE DEVICE Routine 05/23/2024 9 :35 AM TRACK WALKER EGFR Routine 05/23/2024 5:12 AM TRACK WALKER DIFFERENTIAL AUTO Routine 05/23/2024 5:1 2 AM TRACK WALKER CBC WITH AUTO DIFFERENTIAL Routine 05/23/2024 5:12 AM TRACK WALKER BASIC METABOLIC PANEL Routine 05/23/2024 5:12 AM TRACK WALKER POCT GLUCOSE DEVICE Routine 05/22/2024 6 :30 PM TRACK WALKER XR HIP RIGHT 2 OR 3 VIEWS ED Urgent/IP Urgent 05/22/2024 2:10 PM TRACK WALKER FL FLUOROSCOPY < 1 HOUR IP Routine 05/22/2024 1:30 PM TRACK WALKER AK AN PROCEDURE PLACEHOLDER Routine 05/22/2024 12:18 PM TRACK WALKER AK AN ELECTIVE ENDOTRACHEAL AIRWAY Routine 05/22/2024 12:18 PM TRACK WALKER ARTHROPLASTY TOTAL HIP - ANTERIOR APPROACH 05/22/2024 11:26 AM TRACK WALKER Primary osteoarthritis of right hip Case Notes RTHA-anterior B ABO / RH CONFIRMATION TESTING STAT 05/22/2024 9:44 AM TRACK WALKER ECG 12-LEAD Routine 05/08/2024 1:20 PM TRACK WALKER Preop examination EGFR Routine 05/08/2024 1:10 PM TRACK WALKER Primary osteoarthritis of right hip Preop testing DIFFERENTIAL AUTO Routine 05/08/2024 1:1 0 PM TRACK WALKER Primary osteoarthritis of right hip Preop testing ANTIBODY SCREEN Routine 05/08/2024 1:10 PM TRACK WALKER Primary osteoarthritis of right hip Preop testing ABO/RH Routine 05/08/2024 1:10 PM TRACK WALKER Primary osteoarthritis of right hip Preop testing COMPREHENSIVE METABOLIC PANEL Routine 05/08/2024 1:10 PM TRACK WALKER Primary osteoarthritis of right hip Preop testing CBC WITH AUTO DIFFERENTIAL Routine 05/08/2024 1:10 PM TRACK WALKER Primary osteoarthritis of right hip Preop testing TYPE AND SCREEN 14 DAY Routine 05/08/2024 1:10 PM TRACK WALKER Primary osteoarthritis of right hip Preop testing PROTIME-INR Routine 05/08/2024 1:10 PM TRACK WALKER Primary osteoarthritis of right hip Preop testing Pain in other specified joint NICOTINE METABOLITE SCREEN, URINE Routine 05/08/2024 1:10 PM TRACK WALKER Primary osteoarthritis of right hip Preop testing INFECTION PREVENTION MRSA ONLY (STAPHYLOCOCCUS AUREUS) PCR Routine 05/08/2024 1:10 PM TRACK WALKER Primary osteoarthritis of right hip Preop testing PAP AND HIGH RISK HPV, REFLEX TO GENOTYPING Routine 05/31/2023 11:17 AM TRACK WALKER Screening for cervical cancer SCREENING MAMMOGRAM BILATERAL [...] 3 Views W Pelvis (06/06/2024 9:22 AM TRACK WALKER) Anatomical Region Laterality Modality Lower Extremities, Hip, Pelvis Right C omputed Radiography 06/08/2024 9:03 AM TRACK WALKER Narrative 06/08/2024 9:04 AM TRACK WALKER EXAM DESCRIPTION: XR HIP RIGHT 2 OR [...] by Jerry Marrufo M.D. T: Report ID: [id number] Reading Location: [id number] Procedure Note Jerry Marrufo MD - 06/08/2024 [...] by Jerry Marrufo M.D. T: Report ID: [id number] Reading Location: [id number] Liam GARCIA IM XR PROCEDURES Final Result * eGFR (05/25/2024 5:16 AM TRACK WALKER) eGFR >90 >=60 mL/min/1. 73 m2 Comment: [...] last reviewed 2021. Blood 05/25/2024 5:16 AM TRACK WALKER 05/25/2024 5:38 AM TRACK WALKER us Liam GARCIA LAB BLOOD ORDERABLES Final Resul t [facility] [address] [facility] Department [place] [address] * (ABNORMAL) Differential, auto (05/25/2024 5:16 AM TRACK WALKER) Neutrophil abs 7.9(H) 1.5 - 6.5 K/cumm Imm gran abs 0.1 0.0 - 0.1 K/cumm [facility] Lymphocyte abs 1.6 0.8 - 3.3 K/cumm [facility] Monocyte abs 0.8 0.2 - 0.8 K/cumm [facility] Eosinophil abs 0.2 0.0 - 0.5 K/cumm [facility] Basophil abs 0.0 0.0 - 0.1 K/cumm [facility] Neutrophil pct 74.9 % [facility] Comment: Interpretive Data Percent cell count reference ranges are not reported, since discordance with absolute values may lead to misinterpretation of CBC data. Current Interpretive Data was last revised on 2017. Imm gran pct 0.5 % [facility] Comment: Interpretive Data Percent cell count reference ranges are not reported, since discordance with absolute values may lead to misinterpretation of CBC data. Current Interpretive Data was last revised on 2017. Lymphocyte pct 15.2 % [facility] Comment: Interpretive Data Percent cell count reference ranges are not reported, since discordance with absolute values may lead to misinterpretation of CBC data. Current Interpretive Data was last revised on 2017. Monocyte pct 7.6 % [facility] Comment: Interpretive Data Percent cell count reference ranges are not reported, since discordance with absolute values may lead to misinterpretation of CBC data. Current Interpretive Data was last revised on 2017. Eosinophil pct 1.5 % [facility] Comment: Interpretive Data Percent cell count reference ranges are not reported, since discordance with absolute values may lead to misinterpretation of CBC data. Current Interpretive Data was last revised on 2017. Basophil pct 0.3 % [facility] Comment: Interpretive Data Percent cell count reference ranges are not reported, since discordance with absolute values may lead to misinterpretation of CBC data. Current Interpretive Data was last revised on 2017. Blood 05/25/2024 5:16 AM TRACK WALKER 05/25/2024 5:38 AM TRACK WALKER Liam GARCIA LAB BLOOD ORDERABLES Final Resul t Performing Organization Address City/[facility] Co de Phone Number [facility] [address] [place] [address] * (ABNORMAL) CBC with auto differential (05/25/2024 5:16 AM TRACK WALKER) WBC 10.6(H) 3.8 - 9.9 K/cumm Hgb 9.5(L) 11.9 - 15.5 g/dL [facility] Hct 29.0(L) 35.6 - 45.5 % [facility] Plt 250 150 - 400 K/cumm [facility] MPV 10.5 9.1 - 12.3 fL [facility] RBC 3.07(L) 3.90 - 5.20 M/cumm [facility] MCV 94.5 81.3 - 96.4 fL [facility] MCH 30.9 27.1 - 33.3 pg [facility] MCHC 32.8 32.3 - 35.7 g/dL [facility] RDW CV 13.4 11.1 - 14.9 % [facility] RDW SD 46.6 35.7 - 48.1 fL [facility] NRBC abs 0.00 0.00 - 0.01 K/cumm [facility] Blood 05/25/2024 5:16 AM TRACK WALKER 05/25/2024 5:38 AM TRACK WALKER Liam GARCIA LAB BLOOD ORDERABLES Final Resul t Performing Organization Address City/[facility] Co de Phone Number RAY [facility] [address] Department [place] [address] * (ABNORMAL) Basic metabolic panel (05/25/2024 5:16 AM TRACK WALKER) Pathologist [facility] Sodium 138 135 - 145 mmol/L Potassium, pl 3.7 3.3 - 4.9 mmol/L [facility] Chloride 107 97 - 110 mmol/L [facility] CO2 25 22 - 32 mmol/L [facility] Anion gap 6 2 - 15 mmol/L [facility] BUN 12 6 - 25 mg/dL [facility] Creatinine 0.55(L) 0.60 - 1.10 mg/dL [facility] Glucose 100 70 - 199 mg/dL [facility] Comment: Interpretive Data Fasting glucose >/= [...] 2022. Calcium 8.9 8.5 - 10.3 mg/dL [facility] Blood 05/25/2024 5:16 AM TRACK WALKER 05/25/2024 5:38 AM TRACK WALKER Liam GARCIA LAB BLOOD ORDERABLES Final Resul t [place] [id number] [facility] Department [place] [address] * Troponin T high-sensitivity (05/24/2024 4:49 PM TRACK WALKER) [facility] Trop T hs 8 <=14 ng/L Comment: Interpretive Data For further hscTnT resources including the diagnostic algorithm and an aid in interpretation, copy and paste this link: [email or web address] Current Interpretive Data last revised 2020. Blood 05/24/2024 4:49 PM TRACK WALKER 05/24/2024 5:01 PM TRACK WALKER Jovan Mejia MD LAB BLOOD ORDERABLES Final R esult [facility] [address] [facility] Department [place] [address] * Pro B-type natriuretic peptide (05/24/2024 4:49 PM TRACK WALKER) NT-proBNP 214 <=300 pg/mL Comment: Interpretive Comments: [...] Revised Date: 2017. Blood 05/24/2024 4:49 PM TRACK WALKER 05/24/2024 5:01 PM TRACK WALKER Jovan Mejia MD LAB BLOOD ORDERABLES Final R esult Performing Organization Address [facility] Co de Phone Number TAYL[address] [place] [address] * Thyroid Function [place] (05/24/2024 4:49 PM TRACK WALKER) TSH 0.48 0.30 - 4.20 mcIUnit/mL Blood 05/24/2024 4:49 PM TRACK WALKER 05/24/2024 5:01 PM TRACK WALKER us Jovan Mejia MD LAB BLOOD ORDERABLES Final R esult Performing Organization Address [facility] de Phone Number [address] [place] [address] * eGFR (05/24/2024 4:50 AM TRACK WALKER) eGFR >90 >=60 mL/min/1. 73 m2 Comment: [...] last reviewed 2021. Blood 05/24/2024 4:50 AM TRACK WALKER 05/24/2024 5:10 AM TRACK WALKER us Liam GARCIA LAB BLOOD ORDERABLES Final Resul t Performing Organization Address [facility] Co de Phone Number [address] [employer] [place] [address] * (ABNORMAL) Differential, auto (05/24/2024 4:50 AM TRACK WALKER) Neutrophil abs 7.5(H) 1.5 - 6.5 K/cumm Imm gran abs 0.1 0.0 - 0.1 K/cumm [facility] Lymphocyte abs 1.8 0.8 - 3.3 K/cumm [facility] Monocyte abs 0.8 0.2 - 0.8 K/cumm [facility] Eosinophil abs 0.0 0.0 - 0.5 K/cumm [facility] Basophil abs 0.0 0.0 - 0.1 K/cumm [facility] Neutrophil pct 73.7 % [facility] Comment: Interpretive Data Percent cell count reference ranges are not reported, since discordance with absolute values may lead to misinterpretation of CBC data. Current Interpretive Data was last revised on 2017. Imm gran pct 0.5 % [facility] Comment: Interpretive Data Percent cell count reference ranges are not reported, since discordance with absolute values may lead to misinterpretation of CBC data. Current Interpretive Data was last revised on 2017. Lymphocyte pct 17.7 % [facility] Comment: Interpretive Data Percent cell count reference ranges are not reported, since discordance with absolute values may lead to misinterpretation of CBC data. Current Interpretive Data was last revised on 2017. Monocyte pct 7.5 % [facility] Comment: Interpretive Data Percent cell count reference ranges are not reported, since discordance with absolute values may lead to misinterpretation of CBC data. Current Interpretive Data was last revised on 2017. Eosinophil pct 0.3 % [facility] Comment: Interpretive Data Percent cell count reference ranges are not reported, since discordance with absolute values may lead to misinterpretation of CBC data. Current Interpretive Data was last revised on 2017. Basophil pct 0.3 % [facility] Comment: Interpretive Data Percent cell count reference ranges are not reported, since discordance with absolute values may lead to misinterpretation of CBC data. Current Interpretive Data was last revised on 2017. Blood 05/24/2024 4:50 AM TRACK WALKER 05/24/2024 5:10 AM TRACK WALKER Liam GARCIA LAB BLOOD ORDERABLES Final Resul t Performing Organization Address [facility] Co de Phone Number RAY [address] [place] [address] * (ABNORMAL) CBC with auto differential (05/24/2024 4:50 AM TRACK WALKER) [facility] WBC 10.1(H) 3.8 - 9.9 K/cumm Hgb 9.7(L) 11.9 - 15.5 g/dL [facility] Hct 29.7(L) 35.6 - 45.5 % [facility] Plt 222 150 - 400 K/cumm [facility] MPV 10.5 9.1 - 12.3 fL [facility] RBC 3.14(L) 3.90 - 5.20 M/cumm [facility] MCV 94.6 81.3 - 96.4 fL [facility] MCH 30.9 27.1 - 33.3 pg [facility] MCHC 32.7 32.3 - 35.7 g/dL [facility] RDW CV 13.3 11.1 - 14.9 % [facility] RDW SD 45.8 35.7 - 48.1 fL [facility] NRBC abs 0.00 0.00 - 0.01 K/cumm [facility] Blood 05/24/2024 4:50 AM TRACK WALKER 05/24/2024 5:10 AM TRACK WALKER Liam GARCIA LAB BLOOD ORDERABLES Final Resul t Performing Organization Address [facility] Co de Phone Number [address] [place] [address] * Basic metabolic panel (05/24/2024 4:50 AM TRACK WALKER) [facility] Sodium 139 135 - 145 mmol/L Potassium, pl 3.7 3.3 - 4.9 mmol/L [facility] Chloride 107 97 - 110 mmol/L [facility] CO2 26 22 - 32 mmol/L [facility] Anion gap 6 2 - 15 mmol/L [facility] BUN 14 6 - 25 mg/dL [facility] Creatinine 0.61 0.60 - 1.10 mg/dL [facility] Glucose 104 70 - 199 mg/dL [facility] Comment: Interpretive Data Fasting glucose >/= [...] 2022. Calcium 9.3 8.5 - 10.3 mg/dL [facility] Blood 05/24/2024 4:50 AM TRACK WALKER 05/24/2024 5:10 AM TRACK WALKER Liam GARCIA LAB BLOOD ORDERABLES Final Resul t Performing Organization Address [facility] Co de Phone Number [address] [place] [address] * POCT glucose (05/23/2024 9:35 AM TRACK WALKER) [facility] Glucose, POC 122 70 - 199 mg/dL Blood 05/23/2024 9:35 AM TRACK WALKER 05/23/2024 9:35 AM TRACK WALKER Heavenly Stratton DO LAB POCT ORDERABLES - DEVICE F inal Result Performing Organization Address [facility] Co de Phone Number [address] [place] [address] * eGFR (05/23/2024 5:12 AM TRACK WALKER) [facility] eGFR >90 >=60 mL/min/1. 73 m2 Comment: [...] last reviewed 2021. Blood 05/23/2024 5:12 AM TRACK WALKER 05/23/2024 5:25 AM TRACK WALKER us Liam GARCIA LAB BLOOD ORDERABLES Final Resul t [facility] [address] [facility] Department [place] [address] * (ABNORMAL) Differential, auto (05/23/2024 5:12 AM TRACK WALKER) Neutrophil abs 11.3(H) 1.5 - 6.5 K/cumm Imm gran abs 0.1 0.0 - 0.1 K/cumm [facility] Lymphocyte abs 1.8 0.8 - 3.3 K/cumm [facility] Monocyte abs 0.9(H) 0.2 - 0.8 K/cumm [facility] Eosinophil abs 0.0 0.0 - 0.5 K/cumm [facility] Basophil abs 0.0 0.0 - 0.1 K/cumm [facility] Neutrophil pct 80.5 % [facility] Comment: Interpretive Data Percent cell count reference ranges are not reported, since discordance with absolute values may lead to misinterpretation of CBC data. Current Interpretive Data was last revised on 2017. Imm gran pct 0.4 % RAY Comment: Interpretive Data Percent cell count reference ranges are not reported, since discordance with absolute values may lead to misinterpretation of CBC data. Current Interpretive Data was last revised on 2017. Lymphocyte pct 12.7 % [facility] [facility] Comment: Interpretive Data Percent cell count reference ranges are not reported, since discordance with absolute values may lead to misinterpretation of CBC data. Current Interpretive Data was last revised on 2017. Monocyte pct 6.1 % [facility] Comment: Interpretive Data Percent cell count reference ranges are not reported, since discordance with absolute values may lead to misinterpretation of CBC data. Current Interpretive Data was last revised on 2017. Eosinophil pct 0.1 % [facility] Comment: Interpretive Data Percent cell count reference ranges are not reported, since discordance with absolute values may lead to misinterpretation of CBC data. Current Interpretive Data was last revised on 2017. Basophil pct 0.2 % [facility] Comment: Interpretive Data Percent cell count reference ranges are not reported, since discordance with absolute values may lead to misinterpretation of CBC data. Current Interpretive Data was last revised on 2017. Blood 05/23/2024 5:12 AM TRACK WALKER 05/23/2024 5:25 AM TRACK WALKER us Liam GARCIA LAB BLOOD ORDERABLES Final Resul t [facility] [address] [facility] [place] [address] * (ABNORMAL) CBC with auto differential (05/23/2024 5:12 AM TRACK WALKER) WBC 14.0(H) 3.8 - 9.9 K/cumm Hgb 10.2(L) 11.9 - 15.5 g/dL [facility] Hct 30.7(L) 35.6 - 45.5 % [facility] Plt 254 150 - 400 K/cumm [facility] MPV 10.2 9.1 - 12.3 fL [facility] RBC 3.27(L) 3.90 - 5.20 M/cumm [facility] MCV 93.9 81.3 - 96.4 fL [facility] MCH 31.2 27.1 - 33.3 pg [facility] MCHC 33.2 32.3 - 35.7 g/dL [facility] RDW CV 13.0 11.1 - 14.9 % [facility] RDW SD 44.6 35.7 - 48.1 fL [facility] NRBC abs 0.00 0.00 - 0.01 K/cumm [facility] Blood 05/23/2024 5:12 AM TRACK WALKER 05/23/2024 5:25 AM TRACK WALKER Liam GARCIA LAB BLOOD ORDERABLES Final Resul t Performing Organization Address [facility] de Phone Number [facility] [address] [facility] Department [place] [address] * (ABNORMAL) Basic metabolic panel (05/23/2024 5:12 AM TRACK WALKER) Sodium 131(L) 135 - 145 mmol/L Potassium, pl 3.4 3.3 - 4.9 mmol/L [facility] Chloride 100 97 - 110 mmol/L [facility] CO2 23 22 - 32 mmol/L [facility] Anion gap 8 2 - 15 mmol/L [facility] BUN 10 6 - 25 mg/dL [facility] Creatinine 0.56(L) 0.60 - 1.10 mg/dL [facility] Glucose 129 70 - 199 mg/dL [facility] Comment: Interpretive Data Fasting glucose >/= [...] 2022. Calcium 8.8 8.5 - 10.3 mg/dL [facility] Blood 05/23/2024 5:12 AM TRACK WALKER 05/23/2024 5:25 AM TRACK WALKER Liam GARCIA LAB BLOOD ORDERABLES Final Resul t [facility] [address] [facility] [place] [address] * POCT glucose (05/22/2024 6:30 PM TRACK WALKER) Glucose, POC 154 70 - 199 mg/dL Glucose comment 1 Use This Result RAY Blood 05/22/2024 6:30 PM TRACK WALKER 05/22/2024 6:30 PM TRACK WALKER Heavenly Stratton DO LAB POCT ORDERABLES - DEVICE F inal Result Performing Organization Address City/State/[facility] Co de Phone Number [facility] [address] [facility] [place] [address] * XR Hip Right 2 or 3 Views (05/22/2024 2:10 PM TRACK WALKER) Anatomical Region Laterality Modality Lower Extremities, Hip, Pelvis Right C omputed Radiography 05/22/2024 2:23 PM TRACK WALKER Narrative 05/22/2024 2:25 PM TRACK WALKER EXAM DESCRIPTION: XR HIP RIGHT 2 OR [...] Jose Schafer M.D. KN T: Report ID: [id number] Reading Location: [id number] Procedure Note Jose Schafer MD - 05/22/2024 [...] Jose Schafer M.D. KN T: Report ID: [id number] Reading Location: [id number] Liam Wolfe PA IMG XR PROCEDURES Final Result * FL Fluoroscopy < 1 Hour (05/22/2024 1:30 PM TRACK WALKER) Narrative BARBIE_[id number]_MHE - 05/22/2024 1:31 PM TRACK WALKER The images from this study are not interpreted by Radiology. Please refer to the physician's procedure / OR operative note. Heavenly Stratton DO IMG FLUOROSCOPY PROCEDURES Fin al Result RAD_[id number]_MHE * AK AN ELECTIVE ENDOTRACHEAL AIRWAY, AK AN PROCEDURE PLACEHOLDER (05/22/2024 12:18 PM TRACK WALKER) Narrative Susan Bob MD - 05/22/2024 12:18 PM TRACK WALKER Susan Bob MD 05/22/2024 12:18 PM Airway [...] / Rh Confirmation Testing (05/22/2024 9:44 AM TRACK WALKER) ABO/Rh Confirmation O Positive MHB Blood 05/22/2024 9:44 AM TRACK WALKER 05/22/2024 9:47 AM TRACK WALKER us Heavenly Stratton DO LAB BLOOD ORDERABLES Final Res ult Performing Organization Address City/[facility]/ZIP Co de Phone Number [facility] [address] [facility] Department [place] [address] [facility] * ECG 12 lead (05/08/2024 1:20 PM TRACK WALKER) Ventricular Rate EKG/Min 53 BPM [facility] Atrial Rate 53 BPM [facility] AK-Interval (MSEC) 148 ms [facility] QRS-Interval (MSEC) 78 ms [facility] QT-Interval (MSEC) 446 ms [facility] QTc 418 ms [facility] P Rand 63 degrees [facility] R Rand 21 degrees [facility] T Rand 12 degrees [facility] Diagnosis Sinus bradycardia Otherwise normal ECG When compared with ECG of 24-FEB-2019 08:48, No significant change was found Confirmed by BALWINDER ESTRADA M.D. ([id number]) on 05/08/2024 9:40:53 PM [facility] 05/08/2024 1:20 PM TRACK WALKER 05/08/2024 9:40 PM TRACK WALKER us Jany Ferguson DIAMOND ASSORTER ECG ORDERABLES Cesia l Result Performing Organization Address City/[facility]/ZIP Co de Phone Number [facility] * eGFR (05/08/2024 1:10 PM TRACK WALKER) Pathologist [facility] eGFR >90 >=60 mL/min/1. 73 m2 Comment: [...] last reviewed 2021. Blood 05/08/2024 1:10 PM TRACK WALKER 05/08/2024 1:20 PM TRACK WALKER us Heavenly Stratton DO LAB BLOOD ORDERABLES Final Res ult [facility] [address] [facility] Department [place] [address] * Differential, auto (05/08/2024 1:10 PM TRACK WALKER) [facility] Neutrophil abs 4.4 1.5 - 6.5 K/cumm Imm gran abs 0.0 0.0 - 0.1 K/cumm [facility] Lymphocyte abs 2.0 0.8 - 3.3 K/cumm [facility] Monocyte abs 0.4 0.2 - 0.8 K/cumm [facility] Eosinophil abs 0.1 0.0 - 0.5 K/cumm [facility] Basophil abs 0.0 0.0 - 0.1 K/cumm [facility] Neutrophil pct 63.9 % [facility] Comment: Interpretive Data Percent cell count reference ranges are not reported, since discordance with absolute values may lead to misinterpretation of CBC data. Current Interpretive Data was last revised on 2017. Imm gran pct 0.4 % [facility] Comment: Interpretive Data Percent cell count reference ranges are not reported, since discordance with absolute values may lead to misinterpretation of CBC data. Current Interpretive Data was last revised on 2017. Lymphocyte pct 29.0 % [facility] Comment: Interpretive Data Percent cell count reference ranges are not reported, since discordance with absolute values may lead to misinterpretation of CBC data. Current Interpretive Data was last revised on 2017. Monocyte pct 5.4 % [facility] Comment: Interpretive Data Percent cell count reference ranges are not reported, since discordance with absolute values may lead to misinterpretation of CBC data. Current Interpretive Data was last revised on 2017. Eosinophil pct 0.7 % [facility] Comment: Interpretive Data Percent cell count reference ranges are not reported, since discordance with absolute values may lead to misinterpretation of CBC data. Current Interpretive Data was last revised on 2017. Basophil pct 0.6 % [facility] Comment: Interpretive Data Percent cell count reference ranges are not reported, since discordance with absolute values may lead to misinterpretation of CBC data. Current Interpretive Data was last revised on 2017. Blood 05/08/2024 1:10 PM TRACK WALKER 05/08/2024 1:20 PM TRACK WALKER us Heavenly Stratton DO LAB BLOOD ORDERABLES Final Res ult [facility] [address] [facility] [place] [address] * Infection Prevention MRSA Only (Staphylococcus aureus) PCR Nasal (05/08/2024 1:10 PM TRACK WALKER) PCR Scrn, Methicillin resistant Staphylococcus aureus (MRSA) Not Detected Not Detected Comment: Interpretive Data Testing performed using Nucleic Acid Amplification with the Lob Xpert MRSA NxG Assay. This assay detects target DNA from mecA, mecC and the SCCmec insertion site of Staphylococcus aureus using Real-Time PCR and has been cleared by the FDA. Performance characteristics have been verified by the [facility]. Current Interpretive Data was last revised on 2023 Nasal 05/08/2024 1:10 PM TRACK WALKER 05/08/2024 1:20 PM TRACK WALKER [facility] MICROBIOLOGY - GENERAL ORD ERABLES Final Result Performing Organization Address [facility] Co de Phone Number RAY [address] [place] [address] * CBC with auto differential (05/08/2024 1:10 PM TRACK WALKER) WBC 6.9 3.8 - 9.9 K/cumm Hgb 13.0 11.9 - 15.5 g/dL [facility] Hct 40.1 35.6 - 45.5 % [facility] Plt 318 150 - 400 K/cumm [facility] MPV 10.3 9.1 - 12.3 fL [facility] RBC 4.23 3.90 - 5.20 M/cumm [facility] MCV 94.8 81.3 - 96.4 fL [facility] MCH 30.7 27.1 - 33.3 pg [facility] MCHC 32.4 32.3 - 35.7 g/dL [facility] RDW CV 13.5 11.1 - 14.9 % [facility] RDW SD 47.1 35.7 - 48.1 fL [facility] NRBC abs 0.00 0.00 - 0.01 K/cumm [facility] Blood 05/08/2024 1:10 PM TRACK WALKER 05/08/2024 1:20 PM TRACK WALKER [facility] BLOOD ORDERABLES Final Res ult Performing Organization Address City/[facility]/ZIP Co de Phone Number RAY [address] [place] [address] * ABO/Rh (05/08/2024 1:10 PM TRACK WALKER) ABO/Rh O Positive Blood 05/08/2024 1:10 PM TRACK WALKER 05/08/2024 1:20 PM TRACK WALKER Narrative [facility] - 05/08/2024 2:00 PM TRACK WALKER Is this test being ordered in advance for a procedure?->Yes Expected date of procedure:->05/22/24 Has the patient been transfused in the past 3 months?->No Has the patient been in the past 3 months?->No [employer] LAB BLOOD BANK TEST ORDERABLES Final Result Performing Organization Address [facility] de Phone Number [address] [address] * (ABNORMAL) Nicotine metabolite screen, urine (05/08/2024 1:10 PM TRACK WALKER) Pathologist [facility] Nicotine, ur <5.0 <5.0 ng/mL [facility] Cotinine, ur 85(H) <5.0 ng/mL [facility] Anabasine ur <2.0 <2.0 ng/mL [facility] Comment: ADDITIONAL INFORMATION This test was developed and its performance characteristics determined by [facility] in a manner consistent with CLIA requirements. This test has not been cleared or approved by the U.S. Food and Drug Administration. Test Performed by: [facility] [address] [id number] Division Field Inspector: Arnaud Celaya Ph.D.; CLIA# [id number] Nornicotine, ur <2.0 <2.0 ng/mL [facility] Urine 05/08/2024 1:10 PM TRACK WALKER 05/08/2024 1:20 PM TRACK WALKER [employer] [facility] URINE ORDERABLES Final Res ult Performing Organization Address [facility] Co de Phone Number [facility] [address] [place] [address] [address] [place], [place] [id number] [facility] * Protime-INR (05/08/2024 1:10 PM TRACK WALKER) Pathologist [facility] PT 14.1 12.0 - 14.6 sec INR 1.1 0.9 - 1.2 [facility] Comment: Ref Range High Interpretive data Oral anticoagulant therapeutic ranges: Venous thromboembolism prophylaxis or treatment: 2.0-3.0 CARDIOLOGY Standard range: 2.0-3.0 High-intensity range: 2.5-3.5 Refer to indication-specific guidelines for appropriate target ranges for prosthetic heart valve replacement. Current interpretive data was last revised on 2019. Blood 05/08/2024 1:10 PM TRACK WALKER 05/08/2024 1:20 PM TRACK WALKER [email or web address] LAB BLOOD ORDERABLES Final Res ult Performing Organization Address [facility] de Phone Number [address] [place] [address] * Antibody screen (05/08/2024 1:10 PM TRACK WALKER) Pathologist [facility] Cody, indirect, Gel Interpretation Negative ABSC Blood 05/08/2024 1:10 PM TRACK WALKER 05/08/2024 1:20 PM TRACK WALKER Narrative [facility] - 05/08/2024 2:00 PM TRACK WALKER Is this test being ordered in advance for a procedure?->Yes Expected date of procedure:->05/22/24 Has the patient been transfused in the past 3 months?->No Has the patient been in the past 3 months?->No [employer] LAB BLOOD BANK TEST ORDERABLES Final Result Performing Organization Address [facility] de Phone Number [address] [place] [address] * Comprehensive metabolic panel (05/08/2024 1:10 PM TRACK WALKER) Pathologist [facility] Sodium 137 135 - 145 mmol/L Potassium, pl 4.1 3.3 - 4.9 mmol/L [facility] Chloride 104 97 - 110 mmol/L [facility] CO2 24 22 - 32 mmol/L [facility] Anion gap 9 2 - 15 mmol/L [facility] BUN 18 6 - 25 mg/dL [facility] Creatinine 0.70 0.60 - 1.10 mg/dL [facility] Glucose 97 70 - 199 mg/dL [facility] Comment: Interpretive Data Fasting glucose >/= [...] 2022. Calcium 10.2 8.5 - 10.3 mg/dL [facility] Bilirubin, total 0.8 0.1 - 1.2 mg/dL [facility] Protein, pl 6.9 6.5 - 8.5 g/dL [facility] Albumin 4.4 3.5 - 5.0 g/dL [facility] Alk phos 43 40 - 130 Units/L [facility] ALT 19 7 - 45 Units/L [facility] AST 25 10 - 45 Units/L [facility] Blood 05/08/2024 1:10 PM TRACK WALKER 05/08/2024 1:20 PM TRACK WALKER us Heavenly Stratton DO LAB BLOOD ORDERABLES Final Res ult [facility] [address] [facility] [place] [address] * Pap and High Risk HPV and Genotyping (Cytology Component) (05/31/2023 11:17 AM TRACK WALKER) Thin prep (Pap test) 05/31/2023 11:17 AM TRACK WALKER 05/31/2023 7:41 PM TRACK WALKER Narrative PATHOLOGY [facility] - 06/07/2023 7:14 AM TRACK WALKER EPIC results best viewed via link to PDF [facility] [place] [address] Note to Patients: This report may contain [...] Gender: John : 1965 (Age: 57) Address: [address] [place] [id number] [facility] #: [id number] Service: DEFAULT Location: Patient Type: [facility] SPECIMEN Taken: 05/31/2023 Received: 05/31/2023 Accessioned: [...] this test have been verified by the [facility] Molecular Infectious Disease laboratory. Correlate with reported cytology results, as applicable. Interpretive data last revised 22 This specimen has been rescreened in accordance with this laboratory's Financial Specialist Program. tcg/06/07/2023 07:14 KB Meehan(ASCP) Report Electronically Reviewed and [...] clinical information and biopsy results as indicated. [facility] Clinical Laboratory Improvement Amendments (CLIA) mandate that cytologic and histologic results be correlated for laboratory quality control supervisor & improvement standards. FOR ALL HIGH-GRADE CASES [...] determined by the Surgical Pathology Department at [facility] as part of an ongoing software quality engineer program and in compliance with [...] determined by the Surgical Pathology Department of [facility]. It has not been cleared or approved by the U. S. Food and Drug Administration. Cassidy Gutierrez MD LAB CYTOLOGY ORDERABLES F inal Result PATHOLOGY [facility] * (ABNORMAL) Screening Mammogram Bilateral W [...] either breast on mammogram. Dulce Curtis NP IM MAMMO PROCEDURES Final Result from Last 3 Months or Most Recently Relevant to Health Maintenance Insurance [facility] [place] HMO/POS AETNA [facility] HMO [facility] HMO/PPO Address: [address] [address] [place] [address] Advance Directives For more information, please contact: [phone] * Full Code (Latest Code Status on File) Date Activated Date Inactivated Comments 05/22/2024 4:57 PM 05/25/2024 3:22 PM Care Teams Carpenter Assistant Installer Relationship Specialty Start Date End Date Norma Orozco MD [address] [place] [phone] PCP - General Internal Medicine 04/03/24 Cassidy Gutierrez MD [address] [place] [address] Wedding Planning Internship Obstetrics and Gynecology 05/08/24 Arthur Dockery MD [address] [place] [address] Consulting Physician Urology 05/08/24 Heavenly Stratton DO [address] [facility] [address] [place] [place] [address] Consulting Physician Orthopedic Surgery 05/23/24
--- OUTSIDE RECORDS SUMMARY | 2024-07-06 15:28 | XMS_ITS | Encounter Summary ---
Author Organization [facility] Address [facility] [place] [address] Care Team Providers Care Shirt Turner Name Role Phone Ria Parr PA-C Primary Care Provider [phone] Norma Orozco MD Primary Care Provider [phone] Encounter Details Date Type Department Care Team (Late st Contact Info) Description 11/29/2019 Hospital Follow-up Call [facility] [place] [address] Shy Linton, RN Social History Tobacco Use [...] Rule Out 03/08/2020 03/08/2020 03/11/2020 7:01 PM CREDIT PRODUCTS OFFICER COVID-19 Confirmed 03/08/2020 03/08/2020 12:36 AM CREDIT PRODUCTS OFFICER COVID-19 Rule Out 11/07/2020 11/07/2020 11/09/2020 7:26 PM CDT Assessment Noted Time PHQ-9 Depression Total Score: 2 01/17/20 19 1:54 PM CDT documented as of this encounter Care Teams Shirt Turner Relationship Specialty Start Date End Date Ria Parr PA-C [address] [address] PCP - General PHYSICIAN COLLECTION SYSTEMS ADMINISTRATOR 10/17/18 04/23/24 Norma Orozco MD [address] [place] [address] PCP - General INTERNAL MEDICINE 04/24/24 documented as of this encounter
--- OUTSIDE RECORDS SUMMARY | 2024-07-06 15:28 | XMS_ITS | Encounter Summary ---
Author Organization [facility] Healthcare Address [address] [place] [address] Care Team Providers Care Special Effects Specialist Name Role Phone Norma Orozco MD Primary Care Provider Cassidy Gutierrez MD Unavailable [phone] Arthur Dockery MD Unavailable [phone] Heavenly Stratton DO Unavailable [phone] Encounter Details Date Type Department Care Team (Late st Contact Info) Description 06/23/2024 Orders Only [facility] Health Information Management [address] [place] [phone] Scanning, Provider Social History Tobacco Use Types Packs/Day Years Used Date Smoking Tobacco: Never Smokeless Tobacco: Never Alcohol Use Standard Drinks/Week Comments Yes 0 (1 standard drink = 0.6 oz pur e alcohol) [facility] Utilities Answer Date Recorded In the past 12 months has [employer] electric, gas, oil, or water company threatened [...] often do you attend chur ch or caodaism services? Never 05/23/2024 Do you belong to any clubs o r organizations such as methodist groups, unions, fraternal or athletic groups, or [...] any time in the past 12 m [facility], were you homeless or living in a retirement (including now)? No 05/23/2024 Personal Safety Answer Date Recorded Have you ever been in or are you currently in a harmful physical or emotional relationship or is someone making you feel afraid or unsafe? Denies 05/22/2024 Comments No Sex and Gender Information Value Date Recorded Sex Assigned at Not on file Legal Sex Female 1:15 AM WARE CLEANER Gender Identity Not on file Sexual Orientation Not on file documented as of this encounter Plan of Treatment Not on file documented as of this encounter Procedures Procedure Name Priority Date/Time Associated Diagnosis Comments SCAN - RADIOLOGY/IMAGING 06/23/2024 documented in this encounter Results * SCAN - RADIOLOGY/IMAGING (06/23/2024) Anatomical Region Laterality Modality Other us Provider Scanning Final Result documented in this encounter Visit Diagnoses Not on filedocumented in this encounter Care Teams Special Effects Specialist Relationship Specialty Start Date End Date Norma Orozco MD [address] [place] [address] PCP - General Internal Medicine 04/03/24 Cassidy Gutierrez MD [address] [place] [address] Senior Marketing Manager Obstetrics and Gynecology 05/08/24 Arthur Dockery MD [address] [address] Consulting Physician Urology 05/08/24 Heavenly Stratton DO [address] [facility] [address] [place] [address] Consulting Physician Orthopedic Surgery 05/23/24 documented as of this encounter
== END 2024-07-06 13:39 | disposition home or self-care (01) ==
LOC: ANHIMG 13:44
PROVIDERS: PCP Internal Medicine; Visit Provider Urology
DX: N20.1 Calculus of ureter (principal)
CPT/HCPCS: 74018